=== PATIENT | female | born 1995 | race Two or more races ===

== ENCOUNTER → 2017-07-03 16:43 | Outpatient (CLI) | payer OTHER, SELFPAY ==
[2017-07-03 17:25] LABS: Absolute Lymphocyte Count 2.41 X10^3/ul (0.83-4.51); Absolute Neutrophil Count 9.9 X10^3/uL (2.0-7.7); Basophil# 0.02 X10^3/uL; Basophil% 0.2 % (0-1); Eosinophil# 0.12 X10^3/uL; Eosinophils% 0.9 % (0-5); Hematocrit 40.9 % (37-47); Hemoglobin 13.4 g/dl (12.0-15.0); Lymphocyte # 2.41 X10^3/ul (4.0); Lymphocyte % 18.3 % (19-41); Mean Corp Hgb Conc 32.8 g/gl (32-36); Mean Corpuscular Hgb 28.3 pg (27.0-32.0); Mean Corpuscular Volume 86.5 fL (81-99); Mean Platelet Vol. 8.7 fl (6.2-12.0); Monocyte# 0.67 X10^3/uL; Monocyte% 5.1 % (0-10); Neutrophil # 9.94 X10^3/uL (2.7-7.7); Neutrophil % 75.3 % (47-70); Platelet Count 275 K/mm3 (150-450); RBC Distribution Width CV 12.3 % (11.6-14.6); RBC Distribution Width SD 38.8 fl (35.1-43.9); Red Blood Count 4.73 M/mm3 (4.2-5.4); White Blood Count 13.2 K/mm3 (4.4-11.0)
[2017-07-03 17:29] LABS: POSITIVE COUNT NO; POSITIVE DIFFERENTIAL NO; POSITIVE MORPHOLOGY NO
[2017-07-03 22:33] LABS: Chlamydia Trachomatis by PCR Negative (Negative); Neisserai gonorrhoeae by PCR Negative (Negative); Probe Check PASS; Sample Adequacy Control PASS; Specimen Processing Control PASS
[2017-07-04 07:09] LABS: Rapid Plasmin Reagin (RPR) NONREACTIVE (NONREACTIVE)
[2017-07-04 11:18] LABS: HIV - WCH Non-Reactive (Nonreactive)
[2017-07-06 03:06] LABS: HCV Quant. RNA PCR HCV Not Detected IU/mL (.)
[2017-07-06 08:53] LABS: HEPATITIS B SURFACE AG Negative (Negative)
[2017-07-08 15:52] LABS: HPV Reflexed? NOT INDICATED
== END ==
PROVIDERS: Visit Provider Obstetrics & Gynecology
DX: Z34.90 Encounter for supervision of normal pregnancy, unspecified, unspecified trimester (principal); Z12.4 Encounter for screening for malignant neoplasm of cervix
CPT/HCPCS: 36415; 85025; 86592; 86703; 86762; 86850; 86900; 87086; 87088; 87340; 87491; 87522; 87591; 88175; G0145

== ENCOUNTER → 2017-08-29 12:52 | Outpatient (CLI) | payer OTHER, SELFPAY ==
--- NOTE | 2017-08-29 12:53 | US_ITS ---
STUDY: SECOND AND THIRD TRIMESTER OBSTETRICAL ULTRASOUND REASON FOR EXAM: Female, 22 years old. Routine survey. LMP: Unsure. TECHNIQUE: Transabdominal PRIOR ULTRASOUND: None. FINDINGS: There is a single intrauterine fetus. The fetus is in a cephalic presentation. There is demonstrated cardiac activity with a heart rate of 140 bpm. There is a normal amniotic fluid volume. The largest amniotic fluid pocket measures 8.6 x 7.4 cm. The placenta is posterior in location and is not low lying. There are Grade 0 placental changes. The cervix measures 3.3 cm in length. The adnexal regions are not visualized. BIOMETRY: BPD: 4.34 cm: 19 weeks, 1 days HC: 15.88 cm: 18 weeks, 6 days AC: 13.67 cm: 19 weeks, 1 days FL: 3.0 cm: 19 weeks, 2 days CI: 79% FL/BPD: 69% FL/HC: FL/AC: 22% HC/AC: 1.16 age by current US: 19 weeks, 1 days. VIVIEN by current US: January 22, 2018. Estimated weight: 276 grams, +/- 40 grams, 7 %. Age by LMP: 20 weeks, 1 days. VIVIEN by LMP: January 15, 2018. ANATOMY: Gender: Male Cranium: Normal lateral ventricles. Normal choroid plexus. Normal cerebellum. Normal cisterna magna. Normal face, nose and lips. Chest: Normal 4-chamber heart. Abdomen/Pelvis: Normal diaphragm. Normal stomach. Normal abdominal wall. Normal cord insertion. Normal 3 vessel cord. Normal kidneys. Normal bladder. Spine: Normal cervical spine. Normal thoracic spine. Normal lumbar spine. Normal sacrum. Extremities: Normal bilateral upper extremities. Normal bilateral lower extremities. US/OB Anatomy Scan IMPRESSION: Single live intrauterine gestation with a mean gestational age of 19 weeks and 1 day. Electronically Signed: Nathaniel Lai MD at 14:13 EDT Tel [phone], Service support ,
== END ==
PROVIDERS: Visit Provider Obstetrics & Gynecology
DX: O09.90 Supervision of high risk pregnancy, unspecified, unspecified trimester (principal); Z3A.00 Weeks of gestation of pregnancy not specified
CPT/HCPCS: 76805

== ENCOUNTER → 2017-09-24 14:41 | Outpatient (CLI) | payer OTHER, SELFPAY ==
--- NOTE | 2017-09-24 14:43 | VDLE_ITS ---
Reason For Study: LLE pain RIGHT LEFT CFV is compressible, spontaneous, phasic, GSV is normal. competent and demonstrates normal CFV is compressible, spontaneous, phasic, augmentation. competent, and demonstrates normal Procedure augmentation. Exam performed in department. FV is compressible, spontaneous, phasic, The exam was diagnostic. competent and demonstrates normal A preliminary report was called and/or faxed augmentation. to Maryellen Castle INTERPRETATIVE DANCER @ 3 pm . POP V is compressible, spontaneous, phasic, Image # 10 is the Left POP V not Left PTV competent and demonstrates normal (mislabeled). augmentation. T/P Trunk is compressible. PTV is compressible. LT PerV is compressible. Interpretation Summary Deep veins of the left lower extremity are patent and compressible segmentally. There is no evidence of left lower extremity deep vein thrombosis. Valvular competence appears intact within the proximal deep venous system on the left . The left greater saphenous vein appears patent and compressible segmentally. Ordering Physician: Maryellen Castle Referring Physician: Maryellen Castle Performed By: Lisa Gutierrez, FRANCISCA, RVT
== END ==
PROVIDERS: Visit Provider Nurse Practitioner Women's Health
DX: O99.119 Other diseases of the blood and blood-forming organs and certain disorders involving the immune mechanism complicating pregnancy, unspecified trimester (principal); D68.51 Activated protein C resistance; Z3A.00 Weeks of gestation of pregnancy not specified
CPT/HCPCS: 93971

== ENCOUNTER → 2017-10-09 11:18 | Outpatient (CLI) | payer OTHER, SELFPAY ==
--- NOTE | 2017-10-09 11:19 | US_ITS ---
STUDY: SECOND AND THIRD TRIMESTER OBSTETRICAL ULTRASOUND - LIMITED REASON FOR EXAM: Female, 22 years old. Routine survey. LMP: April 10, 2017. PRIOR ULTRASOUND: Comparison is made with prior study dated August 29, 2017. TECHNIQUE: Transabdominal ultrasound evaluation was performed. FINDINGS: There is a single intrauterine fetus. The fetus is in a breech presentation. There is demonstrated cardiac activity with a heart rate of 143 bpm. There is a normal amniotic fluid volume. The largest amniotic fluid pocket measures 4.3 cm x 6.2 cm. The amniotic fluid index (RAYMON) is 14.4 cm. The placenta is posterior in location and is not low lying. There are Grade 1 placental changes. The cervix measures 3.3 cm in length. BIOMETRY: BPD: 6.1 cm: 24 weeks, 5 days HC: 22.5 cm: 24 weeks, 4 days AC: 20.6 cm: 25 weeks, 2 days FL: 4.6 on the: 25 weeks, 2 days Age by LMP: 26 weeks, 0 days. VIVIEN by LMP: January 15, 2018. age by prior US: 25 weeks, 0 days. VIVIEN by prior US: January 22, 2018. age by current US: 25 weeks, 0 days. VIVIEN by current US: January 22, 2018. Estimated weight: 772 grams, +/- 113 grams, 11 percentile. Gender: Male US/OB Limited With Biometrics IMPRESSION: Single live intrauterine gestation with a mean gestational age of 25 weeks. The measurements obtained today fall within normal expected range. Electronically Signed: Nathaniel Lai MD at 14:49 EDT Tel [phone], Service support ,
== END ==
PROVIDERS: Visit Provider Obstetrics & Gynecology
DX: O99.119 Other diseases of the blood and blood-forming organs and certain disorders involving the immune mechanism complicating pregnancy, unspecified trimester (principal); D68.51 Activated protein C resistance; Z3A.00 Weeks of gestation of pregnancy not specified
CPT/HCPCS: 76816

== ENCOUNTER 2017-10-17 07:25 | Outpatient (CLI) | payer OTHER, SELFPAY ==
--- NOTE | 2017-10-17 07:25 | DT_ITS ---
This patient was seen during an EMR downtime October 13, 2017 - October 20, 2017. This patient may have a combination of paper and electronic documentation or all paper documentation. All documentation is viewable within the e-chart portion of [facility] [facility] for each patient visit.
== END 2017-10-17 08:10 | disposition home or self-care (01) ==
LOC: WPOUT 07:31 → WP 07:32
PROVIDERS: Visit Provider Obstetrics & Gynecology
DX: O36.8190 Decreased fetal movements, unspecified trimester, not applicable or unspecified (principal)
CPT/HCPCS: 59025; 59050; 99218; G0378

== ENCOUNTER → 2017-10-23 14:46 | Outpatient (CLI) | payer OTHER, SELFPAY ==
[2017-10-23 17:31] LABS: Absolute Lymphocyte Count 2.11 X10^3/ul (0.83-4.51); Absolute Neutrophil Count 11.1 X10^3/uL (2.0-7.7); Basophil# 0.03 X10^3/uL; Basophil% 0.2 % (0-1); Eosinophil# 0.12 X10^3/uL; Eosinophils% 0.8 % (0-5); Hematocrit 37.9 % (37-47); Hemoglobin 12.5 g/dl (12.0-15.0); Lymphocyte # 2.11 X10^3/ul (4.0); Lymphocyte % 14.9 % (19-41); Mean Corpuscular Hgb 28.9 pg (27.0-32.0); Mean Corpuscular Volume 87.7 fL (81-99); Monocyte# 0.77 X10^3/uL; Monocyte% 5.4 % (0-10); Neutrophil # 11.05 X10^3/uL (2.7-7.7); Neutrophil % 78.2 % (47-70); Platelet Count 283 K/mm3 (150-450); RBC Distribution Width CV 12.7 % (11.6-14.6); RBC Distribution Width SD 39.7 fl (35.1-43.9); Red Blood Count 4.32 M/mm3 (4.2-5.4); White Blood Count 14.2 K/mm3 (4.4-11.0)
[2017-10-23 17:32] LABS: Glucose Challenge Gest 1H 50g 121 mg/dL (70-140)
[2017-10-23 17:57] LABS: POSITIVE COUNT NO; POSITIVE DIFFERENTIAL NO; POSITIVE MORPHOLOGY NO
== END ==
PROVIDERS: Visit Provider Nurse Practitioner Women's Health
DX: O09.899 Supervision of other high risk pregnancies, unspecified trimester (principal); Z3A.28 28 weeks gestation of pregnancy; Z67.91 Unspecified blood type, Rh negative
CPT/HCPCS: 82950; 85025; 86850; 86900

== ENCOUNTER 2017-10-28 19:13 | Outpatient (CLI) | payer OTHER, SELFPAY ==
[2017-10-28 19:57] VITALS: BMI 40.8
[2017-10-28] MEDS: Acetaminophen 500 MG Tablet 1000 MG PO (21:08)
[2017-10-28 21:10] VITALS: RESP 18
--- NOTE | 2017-10-29 23:07 | OB.TRI.NOTE ---
- Problem List (1) Threatened labor Status: Acute History of Present Illness Date of Service: 10/29/17 Reason For Visit: CRAMPING Date of Service: 10/29/17 History of Present Illness: co ctx and abdominal cramping Allergies No Known Allergies Allergy (Verified 10/28/17 19:58) - Pertinent Past Medical History Medical History: Past Medical History (Last Reviewed 10/23/17 @ 13:40 by Yasmine Mcclellan) Anxiety and depression Factor 5 Leiden mutation, heterozygous Physical Exam Vitals: Vital Signs Resp 18 10/28/17 21:10 NST - FHR Rate Baby A Baseline: 130s moderate variability reactive Variability:: Moderate Accelerations:: 15 x 15 Decelerations:: Variable - isolated 20 sec variable gestational age appropriate FHR Category:: Category I Uterine Activity:: no regular Impression/Plan threatened PTL cervix closed dc home labor precautions reactive nst
== END 2017-10-28 21:10 | disposition home or self-care (01) ==
LOC: WPOUT 19:21 → WP 19:21
PROVIDERS: Visit Provider Obstetrics & Gynecology
DX: O60.00 Preterm labor without delivery, unspecified trimester (principal); O99.340 Other mental disorders complicating pregnancy, unspecified trimester; F41.9 Anxiety disorder, unspecified; F32.9 Major depressive disorder, single episode, unspecified; O99.119 Other diseases of the blood and blood-forming organs and certain disorders involving the immune mechanism complicating pregnancy, unspecified trimester; D68.51 Activated protein C resistance; Z3A.00 Weeks of gestation of pregnancy not specified
CPT/HCPCS: 59025; 59050; 99218; G0378

== ENCOUNTER → 2017-11-06 17:03 | Outpatient (CLI) | payer OTHER, SELFPAY ==
[2017-11-06 17:24] LABS: Protein, Urine (Random) 59.3 mg/dL (<11.9); Protein:Creat Ratio 272 mg/g CRE (0-200)
== END ==
PROVIDERS: Visit Provider Nurse Practitioner Women's Health
DX: O12.10 Gestational proteinuria, unspecified trimester (principal); Z3A.00 Weeks of gestation of pregnancy not specified
CPT/HCPCS: 82570; 84156

== ENCOUNTER → 2017-11-20 18:03 | Outpatient (CLI) | payer OTHER, SELFPAY | PROVIDERS: Visit Provider Obstetrics & Gynecology | DX: O26.899 Other specified pregnancy related conditions, unspecified trimester (principal); R10.2 Pelvic and perineal pain; Z3A.00 Weeks of gestation of pregnancy not specified | CPT/HCPCS: 87086; 87088 ==

== ENCOUNTER → 2017-11-21 12:13 | Outpatient (CLI) | payer OTHER, SELFPAY ==
--- NOTE | 2017-11-21 12:15 | US_ITS ---
STUDY: SECOND AND THIRD TRIMESTER OBSTETRICAL ULTRASOUND - LIMITED REASON FOR EXAM: Female, 22 years old. Routine survey. LMP: April 10, 2017. PRIOR ULTRASOUND: Comparison is made with prior study dated August 29, 2017 and October 09, 2017. TECHNIQUE: Transabdominal ultrasound evaluation was performed. FINDINGS: There is a single intrauterine fetus. The fetus is in a cephalic presentation. There is demonstrated cardiac activity with a heart rate of 158 bpm. There is a normal amniotic fluid volume. The largest amniotic fluid pocket measures 4.3 cm. The amniotic fluid index (RAYMON) is 14.05 cm. The placenta is posterior in location and is not low lying. There are Grade 1 placental changes. The cervix was not able to be evaluated. The bladder was not filled. BIOMETRY: BPD: 7.71 cm: 31 weeks, 0 days HC: 28.69 cm: 31 weeks, 4 days AC: 26.27 cm: 30 weeks, 3 days FL: 6.01 cm: 31 weeks, 2 days Age by LMP: 32 weeks, 1 days. VIVIEN by LMP: January 15, 2018.. age by prior US: 31 weeks, 1 days. VIVIEN by prior US: January 22, 2018. age by current US: 31 weeks, 1 days. VIVIEN by current US: January 22, 2018. Estimated weight: 1648 grams, +/- 241 grams, 9 percentile. Gender: Male US/OB Limited With Biometrics IMPRESSION: Single live intrauterine gestation with a mean gestational age of 31 weeks and 1 day. The measurements obtained today fall within the normal expected range. Electronically Signed: Nathaniel Lai MD at 14:46 EDT Tel [phone], Service support ,
== END ==
PROVIDERS: Visit Provider Obstetrics & Gynecology
DX: O09.90 Supervision of high risk pregnancy, unspecified, unspecified trimester (principal); Z68.41 Body mass index [BMI] 40.0-44.9, adult; O09.899 Supervision of other high risk pregnancies, unspecified trimester; Z67.91 Unspecified blood type, Rh negative; O99.119 Other diseases of the blood and blood-forming organs and certain disorders involving the immune mechanism complicating pregnancy, unspecified trimester; D68.51 Activated protein C resistance; Z3A.00 Weeks of gestation of pregnancy not specified
CPT/HCPCS: 76816

== ENCOUNTER 2017-11-27 18:10 | Outpatient (CLI) | payer OTHER, SELFPAY ==
[2017-11-27 18:54] VITALS: BMI 40.4
[2017-11-27 19:53] VITALS: BP 103/62; PULSE 82; RESP 16; O2SAT 98
--- NOTE | 2017-12-02 00:03 | OB.TRI.NOTE ---
- Problem List (1) Threatened labor Status: Acute History of Present Illness Date of Service: 12/02/17 Was patient seen by the physician?: No Reason For Visit: R/O PRE TERM LABOR Date of Service: 12/02/17 History of Present Illness: contractions Allergies No Known Allergies Allergy (Verified 11/27/17 19:47) - Pertinent Past Medical History Medical History: Past Medical History (Last Reviewed 11/26/17 @ 11:30 by Leatha Arreguin) Anxiety and depression Factor 5 Leiden mutation, heterozygous Physical Exam Vitals: Vital Signs Pulse Resp BP Pulse Ox 82 16 103/62 98 11/27/17 19:53 11/27/17 19:53 11/27/17 19:53 11/27/17 19:53 NST - FHR Rate Baby A Baseline: 140 Variability:: Moderate Accelerations:: 15 x 15 Decelerations:: None NST Reactive:: Yes FHR Category:: Category I Uterine Activity:: irregular Impression/Plan threatened PTL cervix not dilated no regular ctx reactive nst dc home
== END 2017-11-27 19:50 | disposition home or self-care (01) ==
LOC: WP 18:45 → WPOUT 18:46
PROVIDERS: Visit Provider Obstetrics & Gynecology
DX: O60.00 Preterm labor without delivery, unspecified trimester (principal); O99.119 Other diseases of the blood and blood-forming organs and certain disorders involving the immune mechanism complicating pregnancy, unspecified trimester; D68.51 Activated protein C resistance; Z3A.00 Weeks of gestation of pregnancy not specified
CPT/HCPCS: 59050; 99218; G0378

== ENCOUNTER → 2017-12-18 17:45 | Outpatient (CLI) | payer OTHER, SELFPAY ==
[2017-12-18 19:43] LABS: Group B Strep DNA By PCR Negative (Negative)
[2017-12-18 19:44] LABS: Internal Control PASS; Probe Check PASS; Specimen Processing Control PASS
== END ==
PROVIDERS: Visit Provider Obstetrics & Gynecology
DX: O09.90 Supervision of high risk pregnancy, unspecified, unspecified trimester (principal); Z3A.00 Weeks of gestation of pregnancy not specified
CPT/HCPCS: 87081; 87653

== ENCOUNTER 2017-12-20 10:15 | Outpatient (CLI) | payer OTHER, SELFPAY ==
[2017-12-20 10:36] VITALS: BMI 41.5
[2017-12-20 11:10] LABS: Mucous, Urine 0 SEEN /hpf (<or=2+); Red Blood Cells-Urine 0 SEEN /hpf (0-5)
[2017-12-20 11:15] LABS: Color, Urine Yellow (Yellow); Glucose, Dipstick Normal (Normal); Ketone-Dipstick Negative (Negative); Leukocyte Esterase-Dipstick 500 /ul (Negative); Nitrite-Dipstick Negative (Negative); Occult Blood-Urine 10 /ul (Negative); Protein-Dipstick 15 mg/dl (Negative); Specific Gravity, Urine 1.015 (1.002-1.030); Urine Bilirubin Dipstick Negative (Negative); Urine Clarity Cloudy (Clear); Urine Urobilinogen Normal (Normal)
[2017-12-20 11:24] LABS: Amorphous Sediment 1+; Bacteria 1+ /hpf (None Seen); Squamous Epithelial Cells - UA 0-5 SEEN /hpf (5-10); White Blood Cells 5-10 SEEN /hpf (0-5)
[2017-12-20] MEDS: Nitrofurantoin Macrocrystals 100 MG Capsule PO (11:47)
--- NOTE | 2017-12-21 00:50 | OB.TRI.NOTE ---
- Problem List (1) Threatened labor Status: Acute History of Present Illness Date of Service: 12/20/17 Was patient seen by the physician?: No Reason For Visit: R/O LABOR Date of Service: 12/20/17 History of Present Illness: co irergular ctx Allergies No Known Allergies Allergy (Verified 12/18/17 13:23) - Pertinent Past Medical History Medical History: Past Medical History (Last Reviewed 12/18/17 @ 13:23 by Carlota Feng) Anxiety and depression Factor 5 Leiden mutation, heterozygous NST - FHR Rate Baby A Baseline: 140 Variability:: Moderate Accelerations:: 15 x 15 Decelerations:: None NST Reactive:: Yes, Appropriate for gestational age FHR Category:: Category I Uterine Activity:: irregular Impression/Plan reactive nst jerry rosario dc [place]
== END 2017-12-20 11:50 | disposition home or self-care (01) ==
LOC: WPOUT 10:27 → WP 10:27
PROVIDERS: Visit Provider Obstetrics & Gynecology
DX: O60.00 Preterm labor without delivery, unspecified trimester (principal); Z3A.00 Weeks of gestation of pregnancy not specified
CPT/HCPCS: 59025; 59050; 81001; 99218; G0378

== ENCOUNTER 2018-01-09 22:15 | Outpatient (CLI) | payer OTHER, SELFPAY ==
[2018-01-09 22:51] VITALS: BMI 43.1
[2018-01-09 23:20] LABS: ROM Internal Control Test YES-OK TO RESULT pt. (Internal QC); ROM Patient Test Negative (Negative)
--- NOTE | 2018-01-09 23:55 | OB.TRI.NOTE ---
- Problem List (1) 39 weeks gestation of Status: Acute (2) False labor after 37 completed weeks of gestation Status: Acute History of Present Illness Reason For Visit: R/O SROM Date of Service: 01/09/18 Final VIVIEN: 01/15/18 Final VIVIEN Source: US <20 weeks Gestational age: 39 Weeks and 1 Days History of Present Illness: 22yo G1 @ 39 1/7wga with c/o contractions Allergies No Known Allergies Allergy (Verified 01/09/18 22:59) - Pertinent Past Medical History Medical History: Past Medical History (Last Reviewed 01/07/18 @ 08:27 by Carlota Feng) Anxiety and depression Factor 5 Leiden mutation, heterozygous Physical Exam Vitals: Vital Signs Resp 18 01/10/18 00:28 Cervix Dilation (cm): 1 Station: -3 Effacement (%): 50 - per MARY Oneal NST - FHR Rate Baby A Baseline: 135 Variability:: Moderate Accelerations:: None Decelerations:: None NST Reactive:: Yes FHR Category:: Category I Uterine Activity:: 0/10 Impression/Plan 22yo G1 @ 39.1 wga with false labor, Cat I FHR -d/c home
[2018-01-10 00:28] VITALS: RESP 18
== END 2018-01-10 00:28 | disposition home or self-care (01) ==
LOC: WPOUT 22:50 → WP 01-13 09:50
PROVIDERS: Visit Provider Obstetrics & Gynecology
DX: O47.1 False labor at or after 37 completed weeks of gestation (principal); Z3A.39 39 weeks gestation of pregnancy
CPT/HCPCS: 59025; 59050; 84112; 99218; G0378

== ENCOUNTER → 2018-01-13 11:10 | Outpatient (CLI) | payer OTHER, SELFPAY ==
[2018-01-13 11:29] LABS: Protein, Urine (Random) 60.4 mg/dL (<11.9); Protein:Creat Ratio 266 mg/g CRE (0-200)
== END ==
PROVIDERS: Visit Provider Nurse Practitioner Women's Health
DX: R80.9 Proteinuria, unspecified (principal)
CPT/HCPCS: 82570; 84156

== ENCOUNTER 2018-01-19 09:55 | Inpatient (IN) | payer OTHER, SELFPAY ==
[2018-01-19 10:22] VITALS: BMI 43.8
[2018-01-19] MEDS: Lactated Ringers 1,000 ML 50 ML IV ×3 (10:45→14:39)
[2018-01-19 11:07] LABS: Hematocrit 37.6 % (37-47); Hemoglobin 12.1 g/dl (12.0-15.0); Mean Corp Hgb Conc 32.2 g/gl (32-36); Mean Corpuscular Hgb 25.9 pg (27.0-32.0); Mean Corpuscular Volume 80.3 fL (81-99); Mean Platelet Vol. 9.1 fl (6.2-12.0); Platelet Count 236 K/mm3 (150-450); RBC Distribution Width CV 13.3 % (11.6-14.6); Red Blood Count 4.68 M/mm3 (4.2-5.4); White Blood Count 12.3 K/mm3 (4.4-11.0)
[2018-01-19 11:08] LABS: Scan Indicated on CBC? Y/N NO
[2018-01-19 11:12] LABS: Prothrombin Time (Protime)PT. 12.8 SECONDS (11.7-14.9)
[2018-01-19 11:13] LABS: Partial Thromboplast Time 24.3 Seconds (24.1-36.2)
[2018-01-19] MEDS: Oxytocin 30 units/NS 500 ml 30 UNITS/500 ML IV.SOLN IV (11:34)
[2018-01-19 11:44] LABS: Protein, Urine (Random) 135.2 mg/dL (<11.9); Protein:Creat Ratio 457 mg/g CRE (0-200)
[2018-01-19 11:50] LABS: AST(SGOT) 19 U/L (15-37); Alanine Aminotransfer ALT/SGPT 13 U/L (13-56); Creatinine, Serum 0.74 mg/dL (0.55-1.02); EST Glomerular Filtration Rate 102 mL/min (>60); Est Glom Filt Rate - Afr Amer 123 mL/min (>60); Estimated Creatinine Clearance 88.46 ml/min; Uric Acid 5.4 mg/dL (2.6-6.0)
--- NOTE | 2018-01-19 12:11 | PCM.HP.OB ---
- Problem List (1) Preeclampsia Status: Acute (2) Status: Acute Qualifiers: Comment: (3) screening encounter Status: Acute Comment: MFM consult for NT screening (4) Factor V Leiden mutation affecting Status: Acute Comment: heterozygous, mom had DVT in , no antiocoagulation recommended in unless prolonged immobilization or c section. (5) Rh negative status during Status: Acute Qualifiers: Comment: rhogam at 28 weeks and PRN (6) BMI 40.0-44.9, adult Status: Acute Comment: 1st trimester glucola, recommend weekly nsts and growth US 32 weeks until delivery (7) Supervision of high-risk Status: Acute Qualifiers: Comment: PRR VIVIEN 01/24/18 FOB Binh (involved) History Date of Admission: 01/19/18 Final VIVIEN: 01/15/18 Final VIVIEN Source: US <20 weeks Gestational age: 40 Weeks and 4 Days History of this : This is a 22 year-old, , at 40 weeks gestational age presents for IOL secondary to preeclampsia. BP is 130s over 90s today and her protein is elevated at 457mg on a urine protein creatinine ratio. she denies any hdz bv or ruq but has hade some ctx and cramping. she denies any vb or lof. Medical History: Medical History (Last Reviewed 01/19/18 @ 09:20 by Yasmine Mccelllan) Anxiety and depression F41.8 Factor 5 Leiden mutation, heterozygous D68.51 Allergies No Known Allergies Allergy (Verified 01/19/18 10:22) Home Medications: Home Medications vitamin,calcium,dsqfhsek-[id number]-gkxfp acid tablet 1 tab PO QDAY 07/03/17 breast pump See Dose Instructions .ROUTE .MEDSUPPLY #1 ea 12/30/17 Citalopram Hydrobromide [Citalopram HBr] 20 mg PO QDAY 01/19/18 Smoking Status: Never smoker Alcohol: None Number of Fetus(es): 1 Heart Tracin moderate variability reactive no decels cat I tracing TOCO Analysis: irregular History Past Pregnancies: Past Pregnancies Delivery Date Name GA/Weeks Outcome Route Weight Infant Gender Labor Length Anesthesia Delivery Location Provider FOB Labs: Mom's Labs & Results 01/19/18 01/19/18 01/19/18 10:45 10:45 10:45 WBC 12.3 H RBC 4.68 Hgb 12.1 Hct 37.6 MCV 80.3 L MCH 25.9 L MCHC 32.2 RDW 13.3 RDW Differential 38.0 Plt Count 236 MPV 9.1 PT 12.8 INR 1.0 APTT 24.3 Creatinine Estim Creat Clear Calc Est GFR (MDRD) Af Amer Est GFR (MDRD) Non-Af Uric Acid AST ALT U Random Total Protein Urine Creatinine Protein/Creatinin Ratio Blood Type Pending Antibody Screen Pending 01/19/18 01/19/18 10:45 11:06 WBC RBC Hgb Hct MCV MCH MCHC RDW RDW Differential Plt Count MPV PT INR APTT Creatinine 0.74 Estim Creat Clear Calc 88.46 Est GFR (MDRD) Af Amer 123 Est GFR (MDRD) Non-Af 102 Uric Acid 5.4 AST 19 ALT 13 U Random Total Protein 135.2 H Urine Creatinine 296.00 Protein/Creatinin Ratio 457 H Blood Type Antibody Screen Course Did the patient receive Yes care? Labs RH: NEGATIVE RPR/VDRL/Syphilis Nonreactive Rubella status Immune HbSAg Negative Date Done: 07/03/17 Chlamydia Negative Gonorrhea Negative HIV/AIDS Non-Reactive Group B Strep: Negative Current Obstetrical History Gestational Diabetes No Incompetent Cervix No Infertility No IUGR No Macrosomia No Hypertension/Pre-eclampsia Yes Placenta Previa/Abruption No PTL/PROM No Uterine anomaly No Oligohydramnios No Polyhydramnios No Multiple gestation No Past Medical History Asthma No Diabetes No Hypertension No Heart disease No Mitral valve prolapse No Neurologic/Seizure disorder/ No Migraines Kidney disease No Liver disease No Varicosities No Clotting disorders/Hx of DVT Yes: FACTOR V Thyroid Dysfunction No Other medical diseases No Psychiatric disorders Yes: ANXIETY AND DEPRESSION Major trauma No Abnormal PAP smear No Sleep apnea No Mammogram in the last 2 years No Medications Taken During Dose/Freq.: [MACROBID] 100 MG BID Reason for taking medication [ UTI MACROBID] Social History Marital Status: SINGLE Alleged father BINH SUSAN Hx Smoking No Smoking Status Never smoker How long have you used NA substances (years)? Expected Delivery Method: Spontaneous Vaginal Review of Systems Constitutional: Denies: Fever, Malaise Eyes: Denies: Blurred vision, Vision Change HEENT: Denies: Head Aches, Visual Changes Cardiovascular: Denies: Chest Pain, Palpitations Respiratory: Denies: Cough, Shortness of Breath, Wheezing Gastrointestinal: Denies: Abdominal Pain, Diarrhea, Nausea, Vomiting Genitourinary: Denies: Dysuria, Hematuria Musculoskeletal: Denies: Joint Pain, Muscle pain Skin: Denies: Lesions, Rash Neurological: Denies: Blurred vision, Focal weakness, Headaches Psychiatric: Denies: Anxiety, Depression Endocrine: Denies: Heat/ Cold Intolerance Hematologic/ Lymphatic: Denies: Easy Bruising, Easy Bleeding Physical Exam General: Alert, Cooperative, No apparent distress HEENT: Atraumatic, Normocephalic. Negative for: Thyromegaly, Lymphadenopathy Cardiovascular: Regular rate Lungs: Normal air movement Abdomen: Soft, Non Tender, Gravid Neurological: Deep Tendon Reflexes 2+/4 and Symmetrical, Neuro grossly intact. Negative for: Clonus CURING PRESS MAINTAINER: Normal external genitalia. Negative for: Vulvar lesions Estimated gestational size: Appropriate for gestational size Presentation: Cephalic Assessment/Plan All Active Problems (Last Reviewed 01/19/18 @ 09:20 by Yasmine Mcclellan) 39 weeks gestation of (Acute) False labor after 37 completed weeks of gestation (Acute) Preeclampsia (Acute) (Acute) screening encounter (Acute) Factor V Leiden mutation affecting (Acute) Rh negative status during (Acute) BMI 40.0-44.9, adult (Acute) Supervision of high-risk (Acute) growth abnormality (Resolved) Threatened labor (Resolved) This is a 22 year-old, at 40 weeks gestational age. Patient presents IOL, plan pitocin and arom. Pain management: plans epidural. GBS negative Management of any complications: preeclampsia- labs checked, start magensium only if developed severely elevated bps. I have reviewed the [facility] and made any clinically relevant updates.
[2018-01-19] MEDS: Acetaminophen 325 MG Tablet PO ×2 (13:15→13:19)
[2018-01-19] MEDS: fentaNYL-bupivacaine (epidural) 100 ML BAG EPIDURAL (14:52)
[2018-01-19] MEDS: Amnioinfusion- 0.9% NS 1,000 ML IV.SOLN. 1000 ML INTRA-UTER (16:17)
[2018-01-19] MEDS: Oxytocin 30 units/NS 500 ml 30 UNITS/500 ML IV.SOLN 334 UNITS IV (16:45)
[2018-01-19] MEDS: Oxytocin 30 units/NS 500 ml 30 UNITS/500 ML IV.SOLN 167 UNITS IV (17:15)
[2018-01-19] MEDS: Ketorolac 10 MG Tablet PO (18:43)
[2018-01-19 19:52] VITALS: BP 125/78; PULSE 121; RESP 17; TEMP 37.2
[2018-01-19] MEDS: hydrOXYzine PAM 25 MG Capsule PO (21:00)
[2018-01-19] MEDS: Docusate Sodium 100 MG Capsule PO (22:22)
[2018-01-20] VITALS: BP 119/78; PULSE 100; RESP 17; TEMP 36.6
[2018-01-20] MEDS: Ketorolac 10 MG Tablet PO ×3 (00:17→12:12)
[2018-01-20] MEDS: oxyCODONE 5 MG Tablet PO ×5 (00:17→21:17)
[2018-01-20 04:00] VITALS: BP 112/63; PULSE 68; RESP 17
[2018-01-20] MEDS: Enoxaparin 40 MG/0.4 ML Syringe SC (05:44)
[2018-01-20] MEDS: Dibucaine 30 GM Tube 1 APPLIC TOPICAL (05:45)
[2018-01-20 08:05] VITALS: BP 102/63; PULSE 101; RESP 16; TEMP 36.8; O2SAT 96
[2018-01-20] MEDS: Prenatal Vits Tablet 1 TABLET PO (10:03)
[2018-01-20] MEDS: Docusate Sodium 100 MG Capsule PO ×2 (10:04→21:16)
[2018-01-20] MEDS: Citalopram 20 MG Tablet PO (10:04)
[2018-01-20 12:07] VITALS: BP 111/62; PULSE 102; RESP 16; TEMP 37.2; O2SAT 96
[2018-01-20 14:00] VITALS: BP 125/81; PULSE 71; RESP 16; TEMP 36.8; O2SAT 96
--- NOTE | 2018-01-20 15:40 | NURSING ---
Pt bladder scanned for >887, I straight cathed the pt for 1300cc of light yellow urine. updated and made aware via her nurse Magda.
[2018-01-20] MEDS: hydrOXYzine PAM 25 MG Capsule PO (15:48)
--- NOTE | 2018-01-20 16:14 | CASEMGMT ---
Social Work Labor and Delivery Unit Consult received and noted for maternal history of depression and anxiety. Chart reviewed, noted also mother of baby is a first time mother. Per RN, MOB has had visitors all day today. Met with MOB briefly in room, introduced to self and role. Offered to MOB to do consult now or can come back tomorrow. MOB expressed that is feeling tired, that has had many visitors today, with more visitors to come yet this evening. MOB reports as feeling tired is worried may not retain what social worker school talks about, though would try. Agreed to come back tomorrow morning. MOB smiling, bright affect, appearing to have baby at breast and working on breast feeding. Plan: See MOB tomorrow, 01-21-18. -FROYLAN Godinez, RAT POISONER
--- NOTE | 2018-01-20 17:53 | NURSING ---
pt voided 500cc at this time
[2018-01-20] MEDS: Naproxen 250 MG Tablet 500 MG PO (18:59)
[2018-01-20 19:34] VITALS: BP 136/80; PULSE 94; RESP 18; TEMP 36.8; O2SAT 97
[2018-01-20] MEDS: 0.9% Saline Lock 10 ML Syringe IV ×2 (21:18→23:12)
[2018-01-21 03:02] VITALS: BP 137/78; PULSE 104; RESP 18; TEMP 37.1
[2018-01-21] MEDS: oxyCODONE 5 MG Tablet PO ×3 (03:06→13:12)
[2018-01-21] MEDS: Naproxen 250 MG Tablet 500 MG PO (03:07)
[2018-01-21] MEDS: Enoxaparin 40 MG/0.4 ML Syringe SC (06:06)
--- NOTE | 2018-01-21 06:11 | NURSING ---
pt educated on lovenox administration. pt gave own and did well
[2018-01-21] MEDS: hydrOXYzine PAM 25 MG Capsule PO ×2 (06:16→13:12)
[2018-01-21 08:21] VITALS: BP 119/66; PULSE 94; RESP 22; TEMP 36.6; O2SAT 98
[2018-01-21] MEDS: Prenatal Vits Tablet 1 TABLET PO (10:56)
[2018-01-21] MEDS: Citalopram 20 MG Tablet PO (10:56)
[2018-01-21] MEDS: Docusate Sodium 100 MG Capsule PO (10:56)
--- NOTE | 2018-01-21 12:47 | CASEMGMT ---
Social Work Brief Assessment completed. Refer documentation below for further details. Date of Referral/Notification: 01/20/2018 Time of Referral: 714 Referred By: Dr. Toribio Reason for Referral: maternal history of depression and anxiety Date of Intervention: 01/21/2018 Time of Intervention: 1030 Informant: Medical record and mother of baby (MOB) History: JASMYNE is 22-year-old single female, G1, P0 to 1 after delivering Demetri Luzimple on 01-19-18. care started at 10 weeks gestation. MOB with history of Factor V disorder. MOB induced for preeclampsia issues Baby boy Demetri was born weighing 7 pounds 3 ounces, Apgars 8 and 9 at 1 and 5 minutes of life. MOB reports plan for pediatric follow up with Dr. Berrios in [place], [place]. MOB reports father of baby (FOB) is a Darshan Claudy, though uncertain what level of involvement reported FOB will have. JASMYNE reports has known FOB since childhood and were good friends for years. MOB reports this has changed things, and FOB has not been dealing with the possibility of fatherhood well. MOB reports there was another person, a prior boyfriend to JASMYNE, that claimed he may be the father, but MOB reports to have no doubt in her mind, that Darshan is the father. MOB reports to live with [place] mother, stepfather, and MOBs 4-year-old brother Shamir. No issue with transportation. 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 Mental Health History: MOB reports history of depression and anxiety, currently on medication for such and plans to remain on in the period. MOB reports history of counseling years ago when [place] father was in the and had to go to [place]. No reports of any thoughts of self-harm or suicidal ideation, plan, intent or attempts. Substance use History: MOB reports to drink alcohol socially. No reports of any drug use or abuse history. JASMYNE does not smoke tobacco. Family/Social Stressors: MOB moved from own apartment into MOBs mothers home this as MOB had too many stairs and parking were not conducive to having a baby. MOB reports this was a stress. Additionally, the FOB not being involved or showing much interest in the baby throughout the . Assessment: Met with MOB and mothers mother together in room, and then privately with MOB. While alone, MOB denies any safety concerns in the home or with any person in MOBs life at this point. MOB pleasant, friendly, and cooperative with social work visit. MOB held good eye contact, mood and affect appropriate and congruent. Observed MOBs mother care for baby while in the room, handle baby appropriately and gently, appearing at ease in baby care. While alone with MOB, baby was in the bedside crib but when baby started for fuss, MOB attended to baby, gentle, appropriate, looked at baby, smiled at baby and talked to baby. MOB identifies having loving feelings for baby and to be happy about being a mother. MOB reports to feel to have adequate support at home, and to have needed baby supplies. MOB does plan to stay on antidepressant medication in the period, and reports may consider counseling. MOB receptive to having list of providers in case MOB decides to move forward with counseling. Talked with MOB and MOBs mother Mendel together about risk for depression and anxiety, importance of seeking out support if symptoms arise. Talked with MOB and mendel regarding some community resources, MOB and Mendel both voiced agreement with a referral to the maternal home visiting program through the [facility]. MOB also agrees for Help Me [facility] referral, to at least talk to [facility] further about programming. Interventions: [facility] referral submitted via the [facility] secure web-based referral system Faxed Maternal home visiting referral form to the [facility] Obtained for MOB last pay stub from her payroll department, so that MOB can use this for WIC. Provided MOB with community resources information for [facility], list of counseling providers on insurance panel, as well as depression packet that includes some online support. Plan: MOB to home with baby at discharge, will have family support and lives with MOBs mother who does not work outside of the home so will be available to help MOB with baby as needed. Referrals are in place. No further needs requested or indicated. -SHELBIE Godinez MSW
--- NOTE | 2018-01-21 12:57 | DCINST_ITS ---
Discharge Diet: No Restrictions Discharge Activity: Return to Normal Activity, May not drive while taking narcotic pain medications., May Shower May resume sexual activity in: 4-6 weeks Call your doctor if your incision/area has: Continuous Slow Oozing, Sudden Increased Bleeding, Increased Pain/ Swelling, Increased Redness, Foul Smelling Discharge Additional Instructions: If you experience any of the following, contact your healthcare provider. * Bleeding that soaks a pad every hour for 2 hours * Fever 100.4 or higher * Unrelieved incision or abdominal pain * Swelling, redness, discharge or bleeding from your incision or episiotomy site * Your incision begins to separate * Problems urinating (including inability to urinate or burning while urinating) . * Visual changes * Severe headache * Flu-like symptoms * Pain or redness in one of both of your breasts * Pain, warmth, tenderness or swelling in your legs, especially the calf area * Frequent nausea and vomiting * Symptoms of depression or anxiety If you experience any of the following, call 911 or go to the nearest Emergency Room. * Chest pain * Problems breathing * Seizure activity * Partial or complete paralysis of a body part, slurred speech, weakness or drooping of the face, or a sudden inability to walk or hold your balance Allergies/Adverse Reactions: Allergies No Known Allergies Allergy (Verified 01/19/18 10:22) Medications to take at Discharge vitamin,calcium,olrydhei-ogwk-ionzp acid tablet 1 tab PO QDAY 07/03/17 breast pump See Dose Instructions .ROUTE .MEDSUPPLY #1 ea 12/30/17 Citalopram Hydrobromide [Citalopram HBr] 20 mg PO QDAY 01/19/18 Docusate Sodium [Colace] 100 mg PO BID #60 cap 01/21/18 Enoxaparin Sodium [Lovenox] 40 mg SQ DAILY 45 Days #14 ml 01/21/18 Hydroxyzine Pamoate [Vistaril] 50 mg PO 4X/DAY PRN PRN #30 cap 01/21/18 Oxycodone HCl/Acetaminophen [Percocet 5-325] 1 - 2 tab PO Q4H PRN PRN 7 Days # 28 tab 01/21/18 The following prescriptions were given: Oxycodone HCl/Acetaminophen [Percocet 5-325] 1 - 2 tab PO Q4H PRN PRN 7 Days # 28 tab PRN Reason: Moderate-Severe pain Enoxaparin Sodium [Lovenox] 40 mg SQ DAILY 45 Days #14 ml Hydroxyzine Pamoate [Vistaril] 50 mg PO 4X/DAY PRN PRN #30 cap PRN Reason: Anxiety Docusate Sodium [Colace] 100 mg PO BID #60 cap Please Follow Up With: Leidy Dutton MD - [phone] When: Call to make an appointment with your doctor in 6 weeks. If you had elevated Blood pressure or 4th degree laceration you will need to be seen in 2 weeks. Test Results: Test results from this visit will be discussed in further detail at your follow- up appointment, if applicable.
--- NOTE | 2018-01-21 12:57 | PCM.PN.OB ---
Patient Problems: Active and Suspected Problems (Last Reviewed 01/19/18 @ 09:20 by Yasmine Mcclellan) Preeclampsia (Acute) Subjective: doing well pain controlled having normal BMs anxiety controlled with vistaril. no CP SOB - Physical Exam General: Alert, Oriented x3 Vital Signs Temp Pulse Resp BP Pulse Ox 97.8 F 94 22 H 119/66 98 01/21/18 08:21 01/21/18 08:21 01/21/18 08:21 01/21/18 08:21 01/21/18 08:21 Oxygen Delivery Method Room Air Weight: 232 lb 2.348 oz Body Mass Index (BMI) 43.8 Intake and Output for Last 24 Hours 01/19/18 01/20/18 01/21/18 23:59 23:59 23:59 Intake Total 2880 / 2880 700 / 700 Output Total 350 / 350 950 / 950 500 / 500 Balance 2530 / 2530 -250 / -250 -500 / -500 Laboratory Tests Past 24 Hrs 01/20/18 Unknown Screen NEGATIVE Baby's Blood Type B POSITIVE Baby's EMILY NEGATIVE Medical Necessity - Tobacco Use Smoking Status: Never smoker Assessment/Plan All Active Problems (Last Reviewed 01/19/18 @ 09:20 by Yasmine Mcclellan) 39 weeks gestation of (Acute) False labor after 37 completed weeks of gestation (Acute) Preeclampsia (Acute) (Acute) screening encounter (Acute) Factor V Leiden mutation affecting (Acute) Rh negative status during (Acute) BMI 40.0-44.9, adult (Acute) Supervision of high-risk (Acute) growth abnormality (Resolved) Threatened labor (Resolved) s/p VAVD ppd 2 1. factor V- lovenox and scds 2. fourth degree laceration- stool softeners 3. depression anxiety- celexa and vistaril routine post delivery care doing well dc home
--- NOTE | 2018-01-21 12:59 | PCM.PN.OB ---
Patient Problems: Active and Suspected Problems (Last Reviewed 01/19/18 @ 09:20 by Yasmine Mcclellan) Preeclampsia (Acute) Subjective: late entry- patient seen 01/20/18 at 7:45 am having urinary retention- s/p straight cath x 1. pain controlled, anxiety controlled with vistaril no CP SOB N V - Physical Exam General: Alert, Oriented x3 Vital Signs Temp Pulse Resp BP Pulse Ox 97.8 F 94 22 H 119/66 98 01/21/18 08:21 01/21/18 08:21 01/21/18 08:21 01/21/18 08:21 01/21/18 08:21 Oxygen Delivery Method Room Air Weight: 232 lb 2.348 oz Body Mass Index (BMI) 43.8 Intake and Output for Last 24 Hours 01/19/18 01/20/18 01/21/18 23:59 23:59 23:59 Intake Total 2880 / 2880 700 / 700 Output Total 350 / 350 950 / 950 500 / 500 Balance 2530 / 2530 -250 / -250 -500 / -500 Laboratory Tests Past 24 Hrs 01/20/18 Unknown Screen NEGATIVE Baby's Blood Type B POSITIVE Baby's EMILY NEGATIVE Medical Necessity - Tobacco Use Smoking Status: Never smoker Assessment/Plan All Active Problems (Last Reviewed 01/19/18 @ 09:20 by Yasmine Mcclellan) 39 weeks gestation of (Acute) False labor after 37 completed weeks of gestation (Acute) Preeclampsia (Acute) (Acute) screening encounter (Acute) Factor V Leiden mutation affecting (Acute) Rh negative status during (Acute) BMI 40.0-44.9, adult (Acute) Supervision of high-risk (Acute) growth abnormality (Resolved) Threatened labor (Resolved) s/p VAVD ppd 1 1. factor V- lovenox and scds 2. fourth degree laceration- stool softeners 3. depression anxiety- celexa and vistaril routine post delivery care doing well dc home tomorrow 01/21
--- NOTE | 2018-01-21 14:17 | NURSING ---
This clinical nursing intern reviewed the charting completed by Vipin Shay and it is complete.
[2018-01-21 15:13] VITALS: BP 118/69; PULSE 105; RESP 17; TEMP 36.9; O2SAT 96
--- NOTE | 2018-01-21 21:17 | PCM.OB.VAG ---
- Problem List (1) Preeclampsia Status: Acute (2) Status: Acute Qualifiers: Comment: (3) screening encounter Status: Acute Comment: MFM consult for NT screening (4) Factor V Leiden mutation affecting Status: Acute Comment: heterozygous, mom had DVT in , no antiocoagulation recommended in unless prolonged immobilization or c section. (5) Rh negative status during Status: Acute Qualifiers: Comment: rhogam at 28 weeks and PRN (6) BMI 40.0-44.9, adult Status: Acute Comment: 1st trimester glucola, recommend weekly nsts and growth US 32 weeks until delivery (7) Supervision of high-risk Status: Acute Qualifiers: Comment: PRR VIVIEN 01/24/18 FOB Darshan (involved) Vaginal Delivery Maternal Presentation: Medically Indicated Induction iol preeclampsia Method of Induction: Pitocin Medical Reason for Induction: Preeclampsia, eclampsia Amniotic Membrane Rupture Type: Artificial Amniotic Fluid Description: Clear Final VIVIEN: 01/15/18 Gestational age: 40 Weeks and 4 Days Date of Procedure: 01/19/18 Pre-Operative Diagnosis: iol preeclampsia, bradycardia Post-Operative Diagnosis: same Surgery/ Procedure Performed: Vacuum Assisted Vaginal Delivery Type of Anesthesia: Epidural Presentation: WANDER Placental Delivery Description: Spontaneous Placenta Disposition: [facility] Cord Vessel Description: 3 Vessels Nuchal Cord Compression: With compression Cord Gases drawn per routine: ABG, VBG Cord Entanglement: Around neck x 1, loose Estimated Blood Loss: 400 A gender: Male Episiotomy Description: Perineal Extension/lac, 3rd degree Laceration: Perineal Extension/lac, 4th Degree Medications given after delivery: IV Pitocin Complications: None
== END 2018-01-21 16:55 | disposition home or self-care (01) | DRG 775 ==
PROVIDERS: Admitting Provider Obstetrics & Gynecology; Visit Provider Obstetrics & Gynecology
DX: O76 Abnormality in fetal heart rate and rhythm complicating labor and delivery (principal); O70.3 Fourth degree perineal laceration during delivery; O99.12 Other diseases of the blood and blood-forming organs and certain disorders involving the immune mechanism complicating childbirth; D68.51 Activated protein C resistance; Z3A.40 40 weeks gestation of pregnancy; Z37.0 Single live birth; O14.94 Unspecified pre-eclampsia, complicating childbirth; O48.0 Post-term pregnancy; O69.81X0 Labor and delivery complicated by cord around neck, without compression, not applicable or unspecified; R33.9 Retention of urine, unspecified; F41.8 Other specified anxiety disorders; O99.344 Other mental disorders complicating childbirth
CPT/HCPCS: 59025; 59050; 82565; 82570; 84156; 84450; 84460; 84550; 85027; 85461; 85610; 85730; 86850; 86900; 90384; 99218; J7030; J7120; A4216; G0378; J2790

== ENCOUNTER → 2020-01-27 | Outpatient (CLI) | payer MEDICAID, SELFPAY ==
[2020-01-27 11:29] VITALS: BMI 38.9
[2020-02-04 22:02] LABS: HPV APTIMA, High Risk Positive (Negative); HPV Reflexed? YES, CHARGE PATIENT
== END | disposition home or self-care (01) ==
LOC: LABSPEC 17:05
PROVIDERS: Referring Provider Obstetrics & Gynecology; Visit Provider Obstetrics & Gynecology
DX: Z12.4 Encounter for screening for malignant neoplasm of cervix (principal)
CPT/HCPCS: 87624; 88175; G0145

== ENCOUNTER → 2020-02-15 | Outpatient (CLI) | payer MEDICAID, SELFPAY ==
--- NOTE | 2020-02-15 | ECC_PTH ---
PATIENT: ALBARO DE LA CRUZ LOC: [facility] U#:[id number] AGE/SX: 24/F ROOM: RE02/15/[address]: Dr. Michelle Pisano MD : 1995 BED: DIS: 02/15/2020 SPEC #: [id number] RECD: 02/15/20 18:07 STATUS: TAJ ALFAROFabiola #: [id number] RUTHY: 02/15/20 00:[address]: Michelle Pisano DEPT: SURGICAL PATHOLOGY RECD BY: Wilian Mcwilliams Tissues: Endocervical Procedures: Surgery Specimen Level IV HEADER OPERATION: Colposcopy PRE-OP DIAGNOSIS: ASCUS HPV+ TISSUE SUBMITTED: ECC MICROSCOPIC DIAGNOSIS Endocervix, curettings (cell block): Rare benign epithelial cells are present. AM:briana 02/17/20 MICROSCOPIC DESCRIPTION Slides are reviewed. GROSS DESCRIPTION Received in fixative is one container labeled with the patient's name and designated endocervix curettings. The specimen consists of a scant amount of soft tissue. The specimen is totally submitted for cell block preparation. / AM:briana 02/16/20 TC:5 CPT: 31178
[2020-02-15 15:54] VITALS: BMI 45.3
== END | disposition home or self-care (01) ==
PROVIDERS: Visit Provider Obstetrics & Gynecology
DX: R87.810 Cervical high risk human papillomavirus (HPV) DNA test positive (principal)
CPT/HCPCS: 88305

== ENCOUNTER 2021-06-19 16:30 | Outpatient (CLI) | payer MEDICAID, SELFPAY ==
[2021-06-19 17:58] LABS: HIV - WCH Non-Reactive (Nonreactive)
[2021-06-21 19:07] LABS: HCV Quant. RNA PCR HCV Not Detected IU/mL (.)
[2021-06-21 21:05] LABS: HSV 1 IgG < 0.91 index (0.00-0.90); HSV 2 IgG < 0.91 index (0.00-0.90)
[2021-06-22 00:06] LABS: Chlamydia By Nucleic Acid AMP Positive (Negative)
[2021-06-22 14:36] LABS: Gonococcus By Nucleic Acid AMP Negative (Negative)
[2021-06-22 20:44] LABS: HPV Reflexed? NOT INDICATED
== END 2021-06-19 23:59 | disposition home or self-care (01) ==
PROVIDERS: Referring Provider Obstetrics & Gynecology; Visit Provider Obstetrics & Gynecology
DX: Z87.42 Personal history of other diseases of the female genital tract (principal); Z11.3 Encounter for screening for infections with a predominantly sexual mode of transmission
CPT/HCPCS: 36415; 86695; 86696; 86703; 87491; 87522; 87591; 88175; G0145

== ENCOUNTER → 2021-10-04 | Outpatient (CLI) | payer MEDICAID, SELFPAY ==
[2021-10-04 20:05] LABS: Chlamydia Trachomatis by PCR Negative (Negative); Neisserai gonorrhoeae by PCR Negative (Negative); Probe Check PASS; Sample Adequacy Control PASS; Specimen Processing Control PASS
== END | disposition home or self-care (01) ==
LOC: LABSPEC 16:39
PROVIDERS: Referring Provider Obstetrics & Gynecology; Visit Provider Obstetrics & Gynecology
DX: A74.9 Chlamydial infection, unspecified (principal)
CPT/HCPCS: 87491; 87591

== ENCOUNTER → 2022-08-13 | Outpatient (CLI) | payer MEDICAID, SELFPAY ==
[2022-08-20 15:54] LABS: HPV Reflexed? NOT INDICATED
== END | disposition home or self-care (01) ==
LOC: LABSPEC 14:29
PROVIDERS: Obstetrics & Gynecology; Referring Provider Nurse Practitioner Women's Health; Visit Provider Nurse Practitioner Women's Health
DX: Z12.4 Encounter for screening for malignant neoplasm of cervix (principal)
CPT/HCPCS: 88175; G0145

== ENCOUNTER → 2022-12-25 | Outpatient (CLI) | payer MEDICAID, SELFPAY ==
[2022-12-27 22:06] LABS: Chlamydia By Nucleic Acid AMP Negative (Negative); Gonococcus By Nucleic Acid AMP Negative (Negative)
== END | disposition home or self-care (01) ==
LOC: LABSPEC 16:53
PROVIDERS: Referring Provider Nurse Practitioner Women's Health; Visit Provider Nurse Practitioner Women's Health
DX: N89.8 Other specified noninflammatory disorders of vagina (principal)
CPT/HCPCS: 87070; 87205; 87491; 87591

== ENCOUNTER → 2023-08-21 | Outpatient (CLI) | payer MEDICAID, SELFPAY ==
[2023-08-25 00:06] LABS: Chlamydia By Nucleic Acid AMP Negative (Negative); Gonococcus By Nucleic Acid AMP Negative (Negative)
== END | disposition home or self-care (01) ==
PROVIDERS: Visit Provider Obstetrics & Gynecology
DX: Z20.2 Contact with and (suspected) exposure to infections with a predominantly sexual mode of transmission (principal)
CPT/HCPCS: 87491; 87591

== ENCOUNTER → 2024-12-10 | Outpatient (CLI) | payer OTHER, SELFPAY ==
--- OUTSIDE RECORDS SUMMARY | 2024-12-10 19:31 | XMS RPT_ITS | CCD ---
Author Organization [facility] Care Team Providers Care Business And Services Instructor Name Role Phone Xavier VILLALPANDO, Anita N Unavailable Unavailab le Xavier VILLALPANDO, Anita N Unavailable Unavailab DIANNA Davison Unavailable Unavailable LEIDY MORRIS Unavailable Unavailosmani wallace NO PRIMARY CAREMD Unavailable Unavailable Sara Camarillo Unavailable Unavailable Dr. Leidy Morris Attending Provider Care Physician, No Primary Primary Care Provider Unavailable Care Physician, No Primary Referring Provider Un available Dr. eLidy Morris Attending Provider [phone] Care Physician, No Primary Primary Care Provider Unavailable Care Physician, No Primary Referring Provider Un available Care Physician, No Primary Primary Care Provider Unavailable Care Physician, No Primary Referring Provider Un available CECY Castle NP Attending Provider ALEE NEVAREZ Referring Unavailable Care Physician, No Primary Primary Care Provider Unavailable Care Physician, No Primary Referring Provider Un available Dr. Leidy Morris Attending Provider Leidy Morris Attending Unavailable Care Physician, No Primary Referring Unava ilable Care Physician, No Primary Primary Care Unava ilable Care Physician, No Primary Primary Care Provider Unavailable Care Physician, No Primary Referring Provider Un available Dr. Leidy Morris MD Attending Provider Allergies Allergy Classification Reported Allergen(s) Allergy Type Date of Onset Reaction(s) Facility (1 source) ALLERGIES NOT ON FILE; Translations: [ALLERGIES NOT ON FILE] Propensity to adverse reactions (disorder) [facility] 2 Repository Medications Current Medications Medication Drug Class(es) Dates Sig (Normalized) Sig (Original) citalopram 20 mg oral tablet (20 sources) Serotonin Reuptake Inhibitor Start: 08-21-2023 End: 12-10-2024 take 1 tablet by mouth once daily Citalopram 20 mg tablet Active 20 mg PO daily 30 December 10, 2024 3:07pm depression Start: 10-04-2021 End: 08-21-2023 take 1 tablet by mouth once daily Citalopram 40 mg tablet Discontinued 40 mg PO daily 30 August 13, 2022 12:18pm August 21, 2023 4:00pm depression Start: 07-03-2017 End: 10-04-2021 take 1 tablet by mouth once daily Citalopram 20 mg tablet Discontinued 20 mg PO daily April 18, 2020 11:20am October 04, 2021 4:19pm depression levonorgestrel 0.051612 mg/hr intrauterine system (6 sources) Progestin, Progestin-containing Intrauterine Device Start: 02-15-2020 Levonorgestrel (Mirena) 20 mcg/24 hours (5 yrs) 52 mg intrauterine device Active 1 NMA INTRA-UTER ONCE February 15, 2020 12:00am as a single dose Start: 02-15-2020 levonorgestrel 20 mcg/24 hours (5 yrs) 52 mg intrauterine device Active 1 DEVICE INTRA-UTER ONCE February 15, 2020 12:00am as a single dose Start: 03-02-2018 End: 03-02-2018 levonorgestrel 20 mcg/24 indu rs (6 yrs) 52 mg intrauterine device Discontinued 1 INSERT INTRA-UTER ONCE March 02, 2018 1:36pm March 02, 2018 1:57pm Completed/Discontinued Medications Medication Drug Class(es) Dates Sig (Normalized) Sig (Original) acetaminophen 325 mg / oxyCODONE hydrochloride 5 mg oral tablet (10 sources) Opioid Agonist Start: 01-21-2018 End: 01-29-2018 Oxycodone-Acetaminoph en 5-325 mg tablet Discontinued 1 - 2 {tbl} PO EVERY 4 HOURS NEEDED as needed for Moderate-Severe pain 10 7 0 January 22, 2018 January 28, 2018 12:00am January 29, 2018 12:07am Other acute postprocedural pain Start: 01-21-2018 End: 01-29-2018 take 1 tablet by mouth every four hours as needed Oxycodone-Acetaminophen Discontinued 1 - 2 TABLET PO EVERY 4 HOURS NEEDED 10 January 22, 2018 January 29, 2018 12:07am azithromycin 500 mg oral tablet (5 sources) Macrolide Antimicrobial Start: 06-23-2021 End: 10-04-2021 take 2 tablets by mouth once Azithromycin 500 mg tablet Discontinued 1000 mg PO ONCE 2 0 June 23, 2021 1:00am October 04, 2021 4:08pm Start: 06-23-2021 End: 10-04-2021 take 1000 mg by mouth once Azithromycin Discontinued 1 000 MG PO ONCE 2 June 23, 2021 1:00am October 04, 2021 4:08pm Breast Pump (4 sources) Start: 12-30-2017 End: 01-27-2020 Breast Pump Discontinued 0 . ROUTE .MEDSUPPLY 1 December 30, 2017 8:46am January 27, 2020 11:20am As directed Start: 12-30-2017 End: 01-27-2020 Breast Pump Discontinued 0 . ROUTE .MEDSUPPLY December 30, 2017 12:00am January 27, 2020 11:20am As directed Breast Pump device (1 source) Start: 12-30-2017 End: 01-27-2020 Breast Pump device Discontinued 0 .ROUTE .MEDSUPPLY 1 0 December 30, 2017 12:00am January 27, 2020 11:20am As directed cephalexin 500 mg oral capsule (5 sources) Cephalosporin Antibacterial Start: 11-20-2017 End: 11-30-2017 take 1 capsule by mouth three times daily Cephalexin (Keflex) 500 mg capsule Discontinued 500 mg PO THREE TIMES A DAY 30 10 0 November 20, 2017 12:00am November 29, 2017 12:00am November 30, 2017 12:07am space evenly during waking hours docusate sodium 100 mg oral capsule (5 sources) Start: 01-21-2018 End: 01-27-2020 take 1 capsule by mouth twice daily Docusate Sodium 100 MG capsule Discontinued 100 mg PO TWICE A DAY 60 3 January 21, 2018 12:00am January 27, 2020 11:19am 0.4 ml enoxaparin sodium 100 mg/ml prefilled syringe (5 sources) Low Molecular Weight Heparin Start: 01-21-2018 End: 01-27-2020 inject 40 mg by subcutaneous injection once daily Enoxaparin 40 MG/0.4 ML syringe Discontinued 40 mg SQ DAILY 14 45 2 January 21, 2018 12:00am January 27, 2020 11:19am fluconazole 150 mg oral tablet (3 sources) Azole Antifungal Start: 12-29-2022 End: 08-21-2023 Fluconazole 150 mg tablet Discontinued 150 mg PO .COMPLEX 2 0 December 29, 2022 12:00am August 21, 2023 3:47pm 150 mg PO take one po now and repeat in 3 days hydrOXYzine pamoate 50 mg oral capsule (20 sources) Antihistamine Start: 01-21-2018 End: 08-21-2023 take 1 capsule by mouth four times daily as needed for anxiety Hydroxyzine Pamoate 50 mg capsule Discontinued 50 mg PO 4 TIMES DAILY NEEDED as needed for Anxiety 30 2 February 22, 2019 10:57am January 27, 2020 11:36am No Reported Medications (1 source) No Reported Medications Refills: 0 Active Prenat.Vits,Kvng,M hp-Jnen-Ipwoo ( Vitamin) tablet (5 sources) Start: 07-03-2017 End: 01-27-2020 take 1 tablet by mouth once daily Prenat.Vits,Kvng,M rh-Ivpw-Yweya ( Vitamin) tablet Discontinued 1 TABLET PO daily July 03, 2017 4:24pm January 27, 2020 11:20am Start: 07-03-2017 End: 01-27-2020 Prenat.Vits,Kvng,Lyn-Oqdc-Tbu ic ( Vitamin) tablet Discontinued 1 {tbl} PO daily July 03, 2017 1:00am January 27, 2020 11:20am Start: 07-03-2017 End: 01-27-2020 take 1 tablet by mouth once daily Prenat.Vits,Kvng,Trs-Uysz-Ztcrz ( Vitamin) tablet Discontinued 1 TABLET PO daily July 03, 2017 1:00am January 27, 2020 11:20am rho(d) immune globulin, human 1500 unt prefilled syringe (1 source) Human Immunoglobulin G Start: 10-23-2017 End: 10-23-2017 inject 1500 [IU] by intramuscular injection once RhoGAM Ultra-Filtered PLUS (rho(D) immune globulin) 1,500 unit (300 mcg) Discontinued 1500 UNIT IM ONCE 1 October 23, 2017 1:30pm October 23, 2017 3:32pm Problems Active Problems Problem Classification Problem Date Documented Date Episodic/Chronic Anxiety disorders (7 sources) Mixed anxiety and depressive disorder; Translations: [Anxiety disorder, unspecified] Chronic Comment on above: celexa increased to 40mg, encouraged counseling. Cancer of cervix (6 sources) Atypical squamous cells of undetermined significance on cervical Papanicolaou smear; Translations: [Atypical squamous cells of undetermined significance on cytologic smear of cervix (ASC-US)] 08-13-2022 Episodic Comment on above: repeat pap negative 2022 Coagulation and hemorrhagic disorders (1 source) Heterozygous Factor V Leiden mutation; Translations: [Primary hypercoagulable state] Chronic Early or threatened labor (5 sources) Threatened premature labor - not delivered ; Translations: [False labor before 37 completed weeks of gestation, unspecified trimester] 01-21-2018 Episodic Immunizations and screening for infectious disease (1 source) Contact with and (suspected) exposure to infections with a predominantly sexual mode of transmission; Translations: [Contact with or exposure to venereal diseases] 12-25-2022 Episodic Nonmalignant breast conditions (1 source) Abscess of breast; Translations: [Inflammatory disease of breast] Episodic Other complications of (5 sources) Complication of , childbirth and/or the puerperium; Translations: [Other diseases of the blood and blood-forming organs and certain disorders involving the immune mechanism complicating , unspecified trimester] 01-21-2018 Episodic Comment on above: heterozygous, mom hdz d DVT in , no antiocoagulation recommended in unless prolonged immobilization or c section. Other complications of (1 source) Other diseases of the blood and blood-forming organs and certain disorders involving the immune mechanism complicating , unspecified trimester; Translations: [Other current conditions classifiable elsewhere of mother, unspecified as to episode of care or not applicable] 08-13-2022 Episodic Other female genital disorders (1 source) Unspecified condition associated with female genital organs and menstrual cycle; Translations: [Other specified symptoms associated with female genital organs] 12-25-2022 Episodic Other nutritional; endocrine; and metabolic disorders (5 sources) Body mass index 40+ - severely obese; Translations: [Body mass index (BMI) 40.0-44.9, adult] 01-21-2018 Chronic Comment on above: 1st trimester glucol a, recommend weekly nsts and growth US 32 weeks until delivery Other screening for suspected conditions (not mental disorders or infectious disease) (2 sources) Encounter for screening for respiratory disorder NEC; Translations: [Encounter for screening for respiratory disorder NEC] Onset: 05-14-2023 Episodic Short gestation; low weight; and growth retardation (1 source) growth abnormality 12-28-2017 Episodic Comment on above: recommend MFM consul t Past or Other Problems Problem Classification Problem Date Documented Date Episodic/Chronic Noninfectious gastroenteritis (2 sources) Gastroenteritis; Translations: [Noninfective gastroenteritis and colitis, unspecified] Onset: 03-28-2017 03-28-2017 Episodic Unclassified (4 sources) growth abnormality; Translations: [ growth abnormality] 01-21-2018 NEGATED: Highlighted row has not occurred!Residual codes; unclassified (1 source) Disease Episodic Results Test Name Value Interpretation Reference Range Facility Chlamydia trachomatis rRNA d etection by probe and target amplification methodOrdered By: Leidy Morris on 08-21-2023 C. trachomatis rRNA ROSEANN+probe Ql (Unsp spec) Negative Negative [facility] Laboratory - Microbiology an d Antimicrobial susceptibilityOrdered By: Leidy Morris on 08-21-2023 N. gonorrhoeae DNA ROSEANN+probe Ql (Unsp spec) Negative Negative [facility] Comment on above: Performed at: [address] [id number] Director: Gladys Scott MD, Phone: [phone] No Panel Informationon 08-20 POC Trichomonas (Rapid) Negative [facility] XR CHEST 1 VIEWon 05-14-2023 XR CHEST 1 VIEW Interpreted By: Luis Jaramillo, STUDY: XR CHEST 1 VIEW 05/14/2023 2:50 pm INDICATION: Signs/Symptoms:SCREENING FOR RESPIRATORY DISORDER NEC COMPARISON: None. ACCESSION NUMBER(S): [id number] ORDERING CLINICIAN: ALEE NEVAREZ TECHNIQUE: A single AP portable radiograph of the chest was obtained. FINDINGS: No focal infiltrate, pleural effusion or pneumothorax is identified. The cardiac silhouette is within normal limits for size. IMPRESSION: No focal infiltrate or pneumothorax is identified. MACRO: None. Signed by: Luis Mantilla 05/14/2023 3:16 PM Dictation workstation: [id number] [facility] Chlamydia trachomatis rRNA d etection by probe and target amplification methodOrdered By: Maryellen Castle on 12-25-2022 C. trachomatis rRNA ROSEANN+probe Ql (Unsp spec) Negative Negative [facility] Gram stain for investigation of transfusion reactionOrdered By: Maryellen Castle on 12-25-2022 Microscopic observation Gram stain Nom (Unsp spec) [facility] Laboratory - Microbiology an d Antimicrobial susceptibilityOrdered By: Maryellen Castle on 12-25-2022 N. gonorrhoeae DNA ROSEANN+probe Ql (Unsp spec) Negative Negative [facility] Comment on above: Performed at: [address] [id number] Director: Gladys Scott MD, Phone: [phone] No Panel Informationon 12-25 POC Bacterial Vaginitis (Rapid) Negative [facility] POC Trichomonas (Rapid) Negative [facility] Thin prep Papanicolaou smear with manual screeningOrdered By: Maryellen Castle on 12-25-2022 Genital Culture Presumptive C albicans [facility] Cervical or vagninal specime n microscopic examination by cytology stain (reported asOrdered By: Dr. Morris on 08-13-2022 Cytology report Cyto stain Doc (Cvx/Vag) Comment . [facility] Comment on above: The Pap smear is a s creening test designed to aid in thedetection of premalignant and malignant conditions of theuterine cervix. It is not a diagnostic procedure andshould not be used as the sole means of detecting cervicalcancer. Both false-positive and false-negative reports dooccur. Laboratory - CytologyOrdered By: Dr. Morris on 08-13-2022 Tree Surgeon Cyto stain Nom (Cvx/Vag) [ID] Comment . [facility] Comment on above: Justin Oneal , Sales Promoter (ASCP) Laboratory - Miscellaneous t estsOrdered By: Dr. Morris on 08-13-2022 Service comment (Unsp spec) [Interp] Comment . [facility] Comment on above: This liquid based Th inPrep(R) pap test was screened withthe use of an image guided system. Service comment (Unsp spec) [Interp] . . [facility] No Panel InformationOrdered By: Dr. Morris on 08-13-2022 Human Papillomavirus Screen Comment . [facility] Comment on above: The HPV DNA reflex c riteria were not met with this specimenresult therefore, no HPV testing was performed.Performed at: [facility] [place] [id number] Director: Gladys Scott MD, Phone: [phone] Pathology report final diagnosis Narrative Comment . [facility] Comment on above: NEGATIVE FOR INTRAEP ITHELIAL LESION OR MALIGNANCY.SHIFT IN MILES SUGGESTIVE OF BACTERIAL VAGINOSIS. Basophil percentageon 2021 C. trachomatis DNA ROSEANN+probe Ql (Unsp spec) Negative Negative [facility] Work Phone: Neisseria gonorrhoeae detect ion by PCRon 10-04-2021 N. gonorrhoeae DNA ROSEANN+probe Ql (Cervical mucus) Negative Negative [facility] Work Phone: .GFRon 06-29-2021 GFR >60 Normal [facility] ([place]) Comment on above: Result Comment: GFR Population mean for , Non- Americans Ages 20-29 = 116 mL/min/1.73 sq.m. Ages 30-39 = 107 mL/min/1.73 sq.m. Ages 40-49 = 99 mL/min/1.73 sq.m. Ages 50-59 = 93 mL/min/1.73 sq.m. Ages 60-69 = 85 mL/min/1.73 sq.m. Ages 70+ = 75 mL/min/1.73 sq.m. Chronic Kidney Disease: Less than 60 mL/min/1.73 square meters End Stage Renal Disease: Less than 15 mL/min/1.73 square meters Performed By: #### C BC, ADIFF, ANEU, CMP, TSH, FT4, VIDH, GFR #### [place] [address] GFR Non- >60 Normal [facility] ([place]) Comment on above: Result Comment: GFR Population mean for , Non- Americans Ages 20-29 = 116 mL/min/1.73 sq.m. Ages 30-39 = 107 mL/min/1.73 sq.m. Ages 40-49 = 99 mL/min/1.73 sq.m. Ages 50-59 = 93 mL/min/1.73 sq.m. Ages 60-69 = 85 mL/min/1.73 sq.m. Ages 70+ = 75 mL/min/1.73 sq.m. Chronic Kidney Disease: Less than 60 mL/min/1.73 square meters End Stage Renal Disease: Less than 15 mL/min/1.73 square meters Performed By: #### C BC, ADIFF, ANEU, CMP, TSH, FT4, VIDH, GFR #### [address] [address] CMPon 06-29-2021 Albumin Level 3.5 G/dL Normal 3.2-4.8 [facility] ([place]) Comment on above: Performed By: #### C BC, ADIFF, ANEU, CMP, TSH, FT4, VIDH, GFR #### [address] [address] Albumin/Globulin [Mass ratio] 1.0 {ratio} Normal 0.9-1.6 [facility] ([place] Comment on above: Performed By: #### C BC, ADIFF, ANEU, CMP, TSH, FT4, VIDH, GFR #### [address] [address] ALP [Catalytic activity/Vol] 104 U/L Normal 38-126 [facility] ([place] Comment on above: Performed By: #### C BC, ADIFF, ANEU, CMP, TSH, FT4, VIDH, GFR #### [address] [address] ALT [Catalytic activity/Vol] 15 U/L Normal 10-49 [facility] ([place] Comment on above: Performed By: #### C BC, ADIFF, ANEU, CMP, TSH, FT4, VIDH, GFR #### [address] [address] AST [Catalytic activity/Vol] 22 U/L Normal 8-34 [facility] ([place] Comment on above: Performed By: #### C BC, ADIFF, ANEU, CMP, TSH, FT4, VIDH, GFR #### [address] [address] Bili Total 0.40 mg/dL Normal 0.20-1.20 [facility] ([place] Comment on above: Result Comment: Use of this assay is not recommended for patients undergoing treatment with eltrombopag due to the potential for falsely elevated results. Performed By: #### C BC, ADIFF, ANEU, CMP, TSH, FT4, VIDH, GFR #### [address] [address] BUN/Creatinine Ratio 19.7 ratio Normal 10.0-22.0 [facility] ([place]) Comment on above: Performed By: #### C BC, ADIFF, ANEU, CMP, TSH, FT4, VIDH, GFR #### [address] [address] Calcium [Mass/Vol] 9.3 mg/dL Normal 8.7-10.4 [facility] ([place]) Comment on above: Result Comment: No te - New Reference Range in effect 19 Performed By: #### C BC, ADIFF, ANEU, CMP, TSH, FT4, VIDH, GFR #### [address] [address] Chloride [Moles/Vol] 108 mmol/L Normal 98-110 [facility] ([place]) Comment on above: Performed By: #### C BC, ADIFF, ANEU, CMP, TSH, FT4, VIDH, GFR #### [address] [address] CO2 [Moles/Vol] 24 mmol/L Normal 22-32 [facility] ([place] Comment on above: Performed By: #### C BC, ADIFF, ANEU, CMP, TSH, FT4, VIDH, GFR #### [address] [address] Creatinine [Mass/Vol] 0.71 mg/dL Normal 0.50-1.20 [facility] ([place]) Comment on above: Performed By: #### C BC, ADIFF, ANEU, CMP, TSH, FT4, VIDH, GFR #### [address] [address] Electrolyte Balance 8.0 mEq/L Normal 4.0-15.0 [facility] ([place]) Comment on above: Performed By: #### C BC, ADIFF, ANEU, CMP, TSH, FT4, VIDH, GFR #### [address] [address] Globulin 3.4 G/dL Normal 1.5-3.8 [facility] ([place] Comment on above: Performed By: #### C BC, ADIFF, ANEU, CMP, TSH, FT4, VIDH, GFR #### [address] [address] Glucose [Mass/Vol] 88 mg/dL Normal 70-110 [facility] ([place]) Comment on above: Performed By: #### C BC, ADIFF, ANEU, CMP, TSH, FT4, VIDH, GFR #### [address] [address] Potassium [Moles/Vol] 4.4 mmol/L Normal 3.5-5.0 [facility] ([place]) Comment on above: Result Comment: Spec imen slightly hemolyzed. Performed By: #### C BC, ADIFF, ANEU, CMP, TSH, FT4, VIDH, GFR #### [address] [address] Sodium [Moles/Vol] 140 mmol/L Normal 136-145 [facility] ([place]) Comment on above: Performed By: #### C BC, ADIFF, ANEU, CMP, TSH, FT4, VIDH, GFR #### [address] [address] Total Protein 6.9 G/dL Normal 5.7-8.2 [facility] ([place] Comment on above: Result Comment: No te - New Reference Range in effect 19 Performed By: #### C BC, ADIFF, ANEU, CMP, TSH, FT4, VIDH, GFR #### [address] [address] Urea nitrogen [Mass/Vol] 14.0 mg/dL Normal 8.0-22.0 [facility] ([place] Comment on above: Performed By: #### C BC, ADIFF, ANEU, CMP, TSH, FT4, VIDH, GFR #### [address] [address] FT4on 06-29-2021 Free T4 1.08 mcg/dL Normal 0.89-1.76 [facility] ([place] Comment on above: Result Comment: No te - New Reference Range in effect 19 Performed By: #### C BC, ADIFF, ANEU, CMP, TSH, FT4, VIDH, GFR #### [place] [address] TSHon 06-29-2021 TSH 2.835 mIU/mL Normal 0.550-4.780 [facility] ([place] Comment on above: Result Comment: No te - New Reference Range in effect 19 Performed By: #### C BC, ADIFF, ANEU, CMP, TSH, FT4, VIDH, GFR #### [place] [address] VIDHon 06-29-2021 Vit. D 25-Hydroxy 11.2 ng/mL Normal [facility] ([place]) Comment on above: Result Comment: Inte rpretive Values Based on Total 25(OH)D: Severe Deficiency <20 ng/mL Mild to Moderate Deficiency 20-30 ng/mL Optimum Levels 30-100 ng/mL Toxicity Possible >100 ng/mL Performed By: #### C BC, ADIFF, ANEU, CMP, TSH, FT4, VIDH, GFR #### [place] [id number] .Auto Diffon 06-28-2021 Basophil, Absolute 0.10 10 3/mcL Normal 0.00-0.27 [facility] ([place]) Comment on above: Performed By: #### C BC, ADIFF, ANEU, CMP, TSH, FT4, VIDH, GFR #### [address] [address] Basophils/100 WBC (Bld) 0.7 % Normal 0.0-2.5 [facility] ([place] Comment on above: Performed By: #### C BC, ADIFF, ANEU, CMP, TSH, FT4, VIDH, GFR #### [address] [address] Eosinophil, Absolute 0.20 10 3/mcL Normal 0.00-0.65 [facility] ([place]) Comment on above: Performed By: #### C BC, ADIFF, ANEU, CMP, TSH, FT4, VIDH, GFR #### [address] [address] Eosinophils/100 WBC (Bld) 1.7 % Normal 0.0-6.0 [facility] ([place]) Comment on above: Performed By: #### C BC, ADIFF, ANEU, CMP, TSH, FT4, VIDH, GFR #### [address] [address] Lymphocyte, Absolute 3.20 10 3/mcL Normal 0.90-4.32 [facility] ([place]) Comment on above: Performed By: #### C BC, ADIFF, ANEU, CMP, TSH, FT4, VIDH, GFR #### [address] [address] Lymphocytes/100 WBC (Bld) 29.7 % Normal 20.0-40.0 [facility] ([place] Comment on above: Performed By: #### C BC, ADIFF, ANEU, CMP, TSH, FT4, VIDH, GFR #### [address] [address] Monocyte, Absolute 0.60 10 3/mcL Normal 0.09-1.40 [facility] ([place]) Comment on above: Performed By: #### C BC, ADIFF, ANEU, CMP, TSH, FT4, VIDH, GFR #### [address] [address] Monocytes/100 WBC (Bld) 5.5 % Normal 2.0-13.0 [facility] ([place] Comment on above: Performed By: #### C BC, ADIFF, ANEU, CMP, TSH, FT4, VIDH, GFR #### [address] [address] Neutrophils/100 WBC (Bld) 62.4 % Normal 50.0-75.0 [facility] ([place] Comment on above: Performed By: #### C BC, ADIFF, ANEU, CMP, TSH, FT4, VIDH, GFR #### [place] [address] .NEUABSon 06-28-2021 Neutrophil, Absolute 6.70 10 3/mcL Normal 2.25-8.10 [facility] ([place]) Comment on above: Performed By: #### C BC, ADIFF, ANEU, CMP, TSH, FT4, VIDH, GFR #### [place] [address] CBCon 06-28-2021 Erythrocyte distribution width (RBC) [Ratio] 12.4 % Normal 11.5-15.5 [facility] ([place] Comment on above: Performed By: #### C BC, ADIFF, ANEU, CMP, TSH, FT4, VIDH, GFR #### [place] [address] Hematocrit (Bld) [Volume fraction] 40.7 % Normal 34.0-46.0 [facility] ([place] Comment on above: Performed By: #### C BC, ADIFF, ANEU, CMP, TSH, FT4, VIDH, GFR #### [place] [address] Hgb 13.6 G/dL Normal 12.0-16.0 [facility] ([place] Comment on above: Performed By: #### C BC, ADIFF, ANEU, CMP, TSH, FT4, VIDH, GFR #### [place] [address] MCH (RBC) [Entitic mass] 28.2 pg Normal 27.0-33.0 [facility] ([place] Comment on above: Performed By: #### C BC, ADIFF, ANEU, CMP, TSH, FT4, VIDH, GFR #### [place] [address] MCHC 33.4 G/dL Normal 32.0-36.0 [facility] ([place] Comment on above: Performed By: #### C BC, ADIFF, ANEU, CMP, TSH, FT4, VIDH, GFR #### [place] [address] MCV (RBC) [Entitic vol] 84.6 fL Normal 80.0-99.0 [facility] ([place] Comment on above: Performed By: #### C BC, ADIFF, ANEU, CMP, TSH, FT4, VIDH, GFR #### [place] [address] Platelet 349 10 3/mcL Normal 150-450 [facility] ([place] Comment on above: Performed By: #### C BC, ADIFF, ANEU, CMP, TSH, FT4, VIDH, GFR #### [place] [address] Platelet mean volume (Bld) [Entitic vol] 7.7 fL Normal 6.6-10.5 [facility] ([place] Comment on above: Performed By: #### C BC, ADIFF, ANEU, CMP, TSH, FT4, VIDH, GFR #### [place] [address] RBC 4.81 10 6/mcL Normal 4.10-5.30 [facility] ([place] Comment on above: Performed By: #### C BC, ADIFF, ANEU, CMP, TSH, FT4, VIDH, GFR #### [place] [address] WBC 10.70 10 3/mcL Normal 4.50-10.80 [facility] Comment on above: Performed By: #### C BC, ADIFF, ANEU, CMP, TSH, FT4, VIDH, GFR #### [address] [address] Basophil percentageon 2021 Basophil [facility] Phone: Comment on above: Test not performed Cervical or vagninal specime n microscopic examination by cytology stain (reported ason 06-19-2021 Cytology report Cyto stain Doc (Cvx/Vag) Comment [facility] Work Phone: Comment on above: The Pap smear is a s creening test designed to aid in thedetection of premalignant and malignant conditions of theuterine cervix. It is not a diagnostic procedure andshould not be used as the sole means of detecting cervicalcancer. Both false-positive and false-negative reports dooccur. Chlamydia trachomatis rRNA d etection by probe and target amplification methodon 06-19-2021 C. 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 gonorrhoeae DNA ROSEANN+probe Ql (Unsp spec) Negative Negative [facility] Work Phone: Comment on above: Performed at: G - [address] [id number] Director: Gladys Scott MD, Phone: [phone] Laboratory - Miscellaneous t estson 06-19-2021 Service comment (Unsp spec) [Interp] Comment [facility] Work Phone: Comment on above: This liquid based Th inPrep(R) pap test was screened withthe use of an image guided system. Service comment (Unsp spec) [Interp] . [facility] Work Phone: No Panel Informationon 06-19 Human Papillomavirus Screen Comment [facility] Work Phone: Comment on above: The HPV DNA reflex c jessika were not met with this specimenresult therefore, no HPV testing was performed.Performed at: - [facility] [address] [id number] Director: Gladys Scott MD, Phone: [phone] Pathology report final diagnosis Narrative Comment [facility] Work Phone: Comment on above: NEGATIVE FOR INTRAEP ITHELIAL LESION OR MALIGNANCY. Addendum Document Comment [facility] Work Phone: Comment on above: The quantitative ran ge of this assay is 15 IU/mL to 100million IU/mL. Herpes Simplex Virus I IgG Antibody < 0.91 index [facility] Work Phone: Comment on above: Negative <0.91 Equiv ocal 0.91 - 1.09 Positive >1.09 Note: Negative indicates no antibodies detected to HSV-1. Equivocal may suggest early infection. If clinically appropriate, retest at later date. Positive indicates antibodies detected to HSV-1. Serum herpes simplex virus 2 antibody assay by immunoassay (units/volume)on 06-19-2021 HSV 2 Ab IA Qn (S) < 0.91 index [facility] [place] Work Phone: Comment on above: Negative <0.91 Equiv ocal 0.91 - 1.09 Positive >1.09 Note: Negative indicates no HSV-2 antibodies detected. Positive indicates HSV-2 antibodies detected. Equivocal and low positive HSV-2 screens (Index 0.91-5.00) may be false positive and are reflexed to supplemental testing in accordance with CDC guidelines.Performed at: [facility] Shiftboard Online Scheduling[address] [id number] Director: Giuseppe Aviles MD, Phone: [phone] at: [facility] Lab[address] [id number] Director: Jose Haywood PhD, Phone: [phone] Serum or plasma hepatitis C virus RNA measurement by probe and target amplification mon 06-19-2021 HCV RNA ROSEANN+probe Qn Not detected [facility] Work Phone: CNNURSEon 02-25-2021 CNNURSE Nurse Visit (UCUPNO) ----- ALBARO HO ([id number]) 1995 F Date Time Provider Department 02/25/21 3:[address] [facility] During your visit today, we recorded the following information about you: Michelle Moyer MA 02/25/2021 3:41 PM Signed PPD or TB vaccine given as ordered Michelle Moyer MA Referring Provider: SELF [200] Allergies As of Date: 02/25/2021 (No Known Allergies) Date Reviewed: 09/06/2020 Reviewed by: Ginna Crouch Ma Student - Fully Assessed Reason for Visit: PPD Screening Or Test [3593] Primary Visit Diagnosis:PPD screening test [Z11.1] Order(s):PPD (TB INTRADERMAL 23345) B/O [4962002] Order #: [id number] Prescriptions as of 02/25/2021 - citalopram (CELEXA) 20 mg tablet TAKE 1 TABLET BY MOUTH DAILY for depression - hydrOXYzine pamoate (VISTARIL) 50 mg capsule TAKE 1 CAPSULE BY MOUTH FOUR TIMES DAILY NEEDED FOR ANXIETY - citalopram (CELEXA) 20 mg tablet TAKE 1 TABLET BY MOUTH DAILY for depression Problem List As Of Date 02/25/2021 Noted Resolved Heterozygous factor V Leiden mutation (HCC) [D6*11/20/2015 Visit Notes: >> SELENE Padilla Feb 25, 2021 3:41 PM Status: Signed PPD or TB vaccine given as ordered Michelle Moyer MA Encounter Status:Closed by MICHELLE MOYER on 02/25/21 [facility] CNOVon 09-06-2020 CNOV Office Visit ([facility] ) ----- ALBARO HO ([id number]) 1995 F Date Time Provider Department 09/06/20 2:20 PM ERIN WU During your visit today, we recorded the following information about you: Temperature Pulse Respiration Blood pressure 98.3 degrees 92/minute 16/minute 105/73 Weight 104.3 kg Deepika Milton Him Analyst Student 09/06/2020 2:55 PM Signed Use antibiotic drops as prescribed. Wash your hands well before touching eyes or putting in eye drops. Ok for a warm compress to your eye 2-3 times per day as needed. Keep the skin to your face and around your eyes clean and dry. Pat dry and do not rub or scratch your eye. I recommend over the counter Ibuprofen as directed as needed for discomfort. Do not use any other eye drops or ointments in your eyes. Follow up with your primary care provider or an eye doctor in 3-5 days if symptoms do not improve, sooner if symptoms worsen. Go to the Emergency department for any changes in vision. Mariel Persaud APRN.MANAGER POWER 09/06/2020 7:54 PM Signed September 06, 2020 Subjective Chief Complaint: Eye Problem (Patient states left eye is iching and burning started 3 days ago, Has had eye infections before in the left eye, Tried OTC eye drops) HPI: Albaro Ho is a 25 year old female who presents today for a 3 day history of left eye irritation. Patient states she's not had any injury or trauma to the eye, describes pain as itching and burning, states discomfort seems worse when she closes her eye. Denies any drainage or eye discharge. Patient states she's tried over the counter ibuprofen for discomfort and states relief noted. States she's also tried over the counter eye drops and states eye drops worsened the pain and irritation. Denies any discomfort or redness to her right eye, denies any blurred or double vision. PAST MEDICAL HISTORY Diagnosis Date - Anxiety state childhood - Depressive disorder, not elsewhere classified childhood - Heterozygous factor V Leiden mutation (HCC) 11/20/2015 PAST SURGICAL HISTORY Procedure Laterality Date - NONE FAMILY HISTORY Problem Relation Age of Onset - other (Factor V Leiden) Mother 42 Social History Tobacco Use - Smoking status: Never Smoker - Smokeless tobacco: Never Used Vaping Use - Vaping Use: Never used Substance Use Topics - Alcohol use: Yes Comment: occ. - Drug use: No ALLERGIES No Known Allergies There is no immunization history on file for this patient. Current Medications: citalopram (CELEXA) 20 mg tablet TAKE 1 TABLET BY MOUTH DAILY for depression hydrOXYzine pamoate (VISTARIL) 50 mg capsule TAKE 1 CAPSULE BY MOUTH FOUR TIMES DAILY NEEDED FOR ANXIETY citalopram (CELEXA) 20 mg tablet TAKE 1 TABLET BY MOUTH DAILY for depression trimethoprim-polymyxin eye drops (POLYTRIM) ophthalmic solution Use 1 Drop in the left eye every 6 hours for 5 days. Review of Systems Constitutional: Negative for chills, fever and weight loss. HENT: Negative. Negative for congestion and sore throat. Eyes: Positive for pain and redness. Negative for blurred vision, double vision, photophobia and discharge. Respiratory: Negative. Cardiovascular: Negative. Gastrointestinal: Negative. Genitourinary: Negative. Musculoskeletal: Negative. Skin: Positive for itching (To outside of left eye). Neurological: Negative. Endo/Heme/Allergies: Negative. Psychiatric/Behavioral: Negative. Objective BP 105/73 Pulse 92 Temp 98.3 Resp 16 Wt 230 lb (104.3kg) SpO2 98% Physical Exam Vitals reviewed. Constitutional: General: She is not in acute distress. Appearance: Normal appearance. She is not ill-appearing or toxic-appearing. HENT: Head: Normocephalic and atraumatic. Nose: Nose normal. Mouth/Throat: Mouth: Mucous membranes are moist. Pharynx: Oropharynx is clear. Eyes: General: No scleral icterus. Right eye: No discharge. Left eye: No discharge. Extraocular Movements: Extraocular movements intact. Conjunctiva/sclera: Conjunctivae normal. Pupils: Pupils are equal, round, and reactive to light. Comments: Localized light pink erythema noted to the skin of the outer canthus of the left eye. No erythema to the conjunctiva or sclera. Pupils 3mm PERRLA bilaterally. Fluorescein staining performed to left eye, no corneal abrasion or foreign body visualized. Cardiovascular: Heart sounds: Normal heart sounds. Pulmonary: Effort: Pulmonary effort is normal. Musculoskeletal: Cervical back: Normal range of motion and neck supple. Skin: General: Skin is warm and dry. Neurological: Mental Status: She is alert and oriented to person, place, and time. Psychiatric: Mood and Affect: Mood normal. ASSESSMENT/PLAN: 1. Irritation of left eye - ICD9: 379.99, ICD10: H57.89 - POLYMYXIN B SULFATE 10,000 UNIT-TRIMETHOPRIM 1 MG/ML EYE DROPS Use antibiotic drops as presc (more content not included)... Normal [facility] STRP SCNon 07-09-2019 STRP SCN Performed at: [facility] [address], [place] [address] STREP SCREEN POSITIVE REFERENCE RANGE NORMAL RESULT IS NEGATIVE. Normal [facility] PROGRESSon 02-09-2018 Protein mass conc HNO ID: [id number] thor: Provider CchsService: (none)Author Type: PhysicianType: Progress NotesFiled: 03/12/2018 9:21 PMNote Text:[facility] CARE [place], [place] [address]CUMGF CARE REPORTPatient: GLADYS HO,HAYDE-Tyree [id number] FStatus: REG POV FCDate of Service: 02/09/18Report Date AND Time: 02/09/18 1557HPIHistory Of Present IllnessChief ComplaintEye Problem/Pain (FC)CC HistoryPt comes in today stating she has an eye infection. States she had asimilar thing a couple years ago that they couldnt figure out what it wasand she was put on eye drops for an infection and it cleared up. Statesshe noticed it yesterday. She has a 3 wk baby at home and occasionallypumpsVital SignsVital SignsFirst LastResult Date Time Result Date TimePulse Ox 97 02/09 1532 97 02/09 1532B/P 92/66 02/09 1532 92/66 02/09 1532Temp 98.0 02/09 1532 98.0 02/09 1532Pulse 83 02/09 1532 83 02/09 1532Resp 20 02/09 1532 20 02/09 153MedicationsReported MedicationsCitalopram* Hbr (Celexa*) 10 MG PO QDAY[anxiety mad]Enoxaparin* Sodium (Lovenox*) 30 MG SC [id number] Allergies:No Known Drug Allergies (02/09/18)Patient Health HistoryMedical ProblemsAnxietyDepression Factor 5 Leiden mutation, heterozygousHordeolum of right eyeSurgical ProblemsNo pertinent past surgical historySocial History ProblemsCurrent non-drinker of alcoholNonsmokerOARRS Accessed and ReviewedNOLNMP:1yr agoAdvanced DirectivesAdvanced DirectivesN/AAdv Dir Info GivenNoAlcohol ScreeningAlcohol Use:NoReview of SystemsGeneralDenies: Body Aches, Fever, Chills.SkinNo: Rash.HeadDenies: Headaches.EyesRedness. Denies: Visual Changes, Eye Pain.Physical ExaminationGeneralAlert, Oriented X3, CooperativeSkinPink, Warm, and Dry, Well HydratedHeadNormocephalic Eyesslight reddness noted medial upper lid. Small lump felt underneath.likely a stye. Pt states she wants the eye antibiotic drops since thatworked in the past and she has a 3wk old at home. Explained a stye isnot contagious and not likely bacterial in nature. Pt still insisting oneye drops.Impression And PlanDischarge InstructionsIncrease Liquids, Tylenol every 4 hrsSpecial InstructionsoFollow up with your Primary Care Physician in 5-7 days if no improvementin your condition.oCall or return to [facility] if you experience problems relating to yourvisit or call .Use warm compresses multiple times a day on the right eye. If noimprovement in a couple weeks, follow up with your eye doctor.All medications and their side effects were explained to the patient andwere understood.At home instructions were explained to the patient and were understood.Report to the [facility] Emergency Department if any further problemsoccur.Diagnosis1. Hordeolum of right eye*PrescriptionsPrescrip tions (FC)Medication Dose/Rte/Freq Days Qty EnteredMax Daily DoseAzithromycin* 1% Ophth 1 DROP OD 2.5 02/09/18(Azasite* 1% Ophth) DIRECTED 1555Strength: 2.5 ML ENRIKE 02/09/18 1600 LISA MARTINO.N.P. << Signature on File>> Reported By: MARJORIE MARTINO.NRadhaPRadha Signed By: MARJORIE MARTINONRadhaPRadhaTests performed at:[address] [phone] Normal [facility] Office Visit: UC: anitaon 03-28-2017 Documentation of current medications (procedure) Done Invalid Interpretation Code [facility] Work Phone: Documentation of current medications (procedure) T Invalid Interpretation Code [facility] Work Phone: Fall risk assessment No Invalid Interpretation Code [facility] Work Phone: Tobacco use CPHS Never smoker Invalid Interpretation Code [facility] Work Phone: Vital Signs Date Time Vital Sign Value Performing Clinician Marcia yi 12-10-2024 14:56-0400 Body height 154.31 cm No Primary Care Physician [facility] 12-10-2024 14:56-0400 Body mass index (BMI) [Ratio] 46.3 kg/m2 No Primary Care Physician [facility] 12-10-2024 14:56-0400 Body weight 110.39 kg No Primary Care Physician [facility] 12-10-2024 14:56-0400 Diastolic blood pressure 77 mm[Hg] No Primary Care Physician [facility] 12-10-2024 14:56-0400 Systolic blood pressure 116 mm[Hg] No Primary Care Physician [facility] 08-21-2023 15:51-0400 Body height 154.31 cm No Primary Care Physician [facility] 08-21-2023 15:44-0400 Body mass index (BMI) [Ratio] 47.8 kg/m2 No Primary Care Physician [facility] 08-21-2023 15:44-0400 Body weight 113.85 kg No Primary Care Physician [facility] 08-21-2023 15:44-0400 Diastolic blood pressure 75 mm[Hg] No Primary Care Physician [facility] 08-21-2023 15:44-0400 Systolic blood pressure 119 mm[Hg] No Primary Care Physician [facility] 12-25-2022 14:53-0400 Body height 154.31 cm No Primary Care Physician [facility] 12-25-2022 14:47-0400 Body mass index (BMI) [Ratio] 49.6 kg/m2 No Primary Care Physician [facility] 12-25-2022 14:47-0400 Body weight 118.1 kg No Primary Care Physician [facility] 12-25-2022 14:47-0400 Diastolic blood pressure 82 mm[Hg] No Primary Care Physician [facility] 12-25-2022 14:47-0400 Systolic blood pressure 124 mm[Hg] No Primary Care Physician [facility] 08-13-2022 12:09-0400 Body height 154.31 cm No Primary Care Physician [facility] 08-13-2022 12:08-0400 Body mass index (BMI) [Ratio] 48.4 kg/m2 No Primary Care Physician [facility] 08-13-2022 12:08-0400 Body weight 116.34 kg No Primary Care Physician [facility] 08-13-2022 12:08-0400 Diastolic blood pressure 77 mm[Hg] No Primary Care Physician [facility] 08-13-2022 12:08-0400 Systolic blood pressure 109 mm[Hg] No Primary Care Physician [facility] 10-04-2021 16:08-0400 Body height 154.[address] Leidy Morris Work Phone: [facility] Work Phone: 10-04-2021 16:08-0400 Body mass index (BMI) [Ratio] 47.6 kg/m2 Dr. Leidy Morris Work Phone: [facility] Work Phone: 10-04-2021 16:08-0400 Body weight 113.[address] Leidy Morris Work Phone: [facility] Work Phone: 10-04-2021 16:08-0400 Diastolic blood pressure 88 mm[Hg] Dr. Leidy Morris Work Phone: [facility] Work Phone: 10-04-2021 16:08-0400 Systolic blood pressure 120 mm[Hg] Dr. Leidy Morris Work Phone: [facility] Work Phone: 06-19-2021 14:48-0500 Body mass index (BMI) [Ratio] 46.6 kg/m2 Dr. Leidy Morris Work Phone: [facility] Work Phone: 06-19-2021 14:48-0500 Body weight 111.[address] Leidy Morris Work Phone: [facility] Work Phone: 06-19-2021 14:48-0500 Diastolic blood pressure 88 mm[Hg] Dr. Leidy Morris Work Phone: [facility] Work Phone: 06-19-2021 14:48-0500 Systolic blood pressure 122 mm[Hg] Dr. Leidy Morris Work Phone: [facility] Work Phone: 03-28-2017 16:00-0500 BMI (Body Mass Index) 39.52 kg/m2 Anita Park LPN [facility] Work Phone: 03-28-2017 16:00-0500 Body Temperature 98.9 [degF] Anita Park LPN [facility] Work Phone: 03-28-2017 16:00-0500 BP Diastolic 76 mm[Hg] Anita Park LPN [facility] Work Phone: 03-28-2017 16:00-0500 BP Systolic 118 mm[Hg] Anita Park LPN [facility] Work Phone: 03-28-2017 16:00-0500 Height 154.94 cm Anita Park LPN [facility] Work Phone: 03-28-2017 16:00-0500 Pulse (Heart Rate) 82 /min Anita Park LPN [facility] Work Phone: 03-28-2017 16:00-0500 Respiratory Rate 14 /min Anita Park IRASEMA [facility] Work Phone: 03-28-2017 16:00-0500 Weight 94.89 kg Anita Park LPN [facility] Work Phone: Encounters Encounter Date Encounter Type Care Provider Facility Start: 12-10-2024 End: 12-10-[address] Leidy Morris MD -[facility] Work Phone: Start: 12-10-2024 End: 12-10-[address] Leidy Morris MD [facility] Start: 12-10-2024 End: 12-10-2024 ambulatory Leidy Morris Facility:[facility] Start: 08-21-2023 End: 08-21-2023 ambulatory No Primary Care Physician [facility] Work Phone: Start: 08-21-2023 End: 08-21-2023 Patient encounter procedure No Primary Care Physician [facility] Specimen Work Phone: Start: 08-21-2023 End: 08-21-2023 Patient encounter procedure No Primary Care Physician [facility] Work Phone: Start: 05-14-2023 End: 05-15-2023 ambulatory [facility] Start: 12-25-2022 End: 12-25-2022 ambulatory No Primary Care Physician [facility] Work Phone: Start: 12-25-2022 End: 12-25-2022 Patient encounter procedure No Primary Care Physician [facility] Work Phone: Start: 12-25-2022 End: 12-25-2022 Patient encounter procedure No Primary Care Physician [facility] Work Phone: Start: 08-13-2022 End: 08-13-2022 ambulatory No Primary Care Physician [facility] Work Phone: Start: 08-13-2022 End: 08-13-2022 Patient encounter procedure No Primary Care Physician [facility] Start: 08-13-2022 End: 08-13-2022 Patient encounter procedure No Primary Care Physician [facility] Start: 10-04-2021 End: 10-04-[address] Leidy Morris Work Phone: [facility] Start: 06-19-2021 End: 06-19-[address] Leidy Morris Work Phone: [facility] Start: 12-08-2017 Patient encounter DIANNA PERALTA [facility] Procedures Date Procedure Procedure Detail Performing Clinician Start: 05-14-2023 XR CHEST 1 VIEW HUSSEINAIMEE HALEKADEN Start: 12-25-2022 Cytopathology proced ure, preparation of smear, genital source No Primary Care Physician Start: 12-25-2022 Investigation of transfusion reaction No Primary Care Physician Plan of Treatment Date Care Activity Detail Author Start: 03-28-2017 End: 03-28-2017 Appointment Appointment [facility] Work Phone: [facility] Work Phone: Immunizations Immunization Date Immunization Notes Care Provider Natalee gonzalez 11-06-2017 tetanus toxoid, reduced diphtheria toxoid, and acellular pertussis vaccine, adsorbed Dr. Leidy Morris Work Phone: [facility] 11-06-2017 diphtheria, tetanus toxoids and acellular pertussis vaccine, unspecified formulation Dr. Leidy Morris Work Phone: [facility] Work Phone: 02-10-2017 influenza, injectabl e, quadrivalent, preservative free No Primary Care Physician [facility] 02-10-2017 influenza, seasonal, injectable Dr. Leidy Morris Work Phone: [facility] 12-30-[address] Leidy Morris Work Phone: [facility] 12-25-2016 hepatitis B vaccine, pediatric or pediatric/adolescent dosage Dr. Leidy Morris Work Phone: [facility] Payers Date Payer Category Payer Self-pay [id number] 2024 Unknown [id number] Unknown [id number] Unknown [id number] Social History Date Type Detail Facility Start: 10-04-2021 End: 08-21-2023 Tobacco smoking status MOIS Unknown if ever smoked [facility] Start: 1995 Sex Assigned At Female [facility] Start: 01-19-2018 None [facility] Start: 12-10-2024 Tobacco smoking status NHIS Never smoked tobacco (finding) [facility] NEGATED: Highlighted row - - - [facility] Work Phone: Functional Status Date Assessment Result Facility NEGATED: Highlighted row Functional performance Functional status health issues are not documented Disease [facility] Work Phone: Mental Status Date Assessment Result Facility NEGATED: Highlighted row Cognitive function [Interpretation] Cognitive status health issues are not documented Disease -[facility] Work Phone: Clinical Notes 09-06-2020 to 12-10-2024 Note Date & Type Note Facility 12-10-2024 Progress note [facility] 12-10-2024 Progress note Note Date/Time December 10, 2024 3:11pm [facility] [address], [address] [place] [address] OFFICE VISIT Date of Service: 12/10/24 MR#: [id number] Acct: [id number] Name: ALBARO HO Rep #: [id number] : 1995 Provider: Dr. 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: No Is patient in pain?: No Allergies No Known Allergies Allergy (Verified 12/10/24 14:58) Medications ?Medication ?Instructions ?Recorded ?Confirmed ?Type levonorgestrel (Mirena) 1 device intrauterine ONCE 1 12/10/24 History hydroxyzine pamoate 50 mg capsule 50 mg PO 4X/DAY PRN PRN Anxiety 08/21/23 12/10/24 Rx #90 caps citalopram 20 mg tablet 20 mg PO QDAY depression #30 tabs 12/10/24 12/10/24 Rx Is last menstrual period known: No Post menopausal: No Patient : No : No [facility] Medical History Factor 5 Leiden mutation, heterozygous Anxiety and depression Family History Mother Factor 5 Leiden mutation, heterozygous Grandmother CVA (cerebral vascular accident) Thyroid disorder Grandmother COPD (chronic obstructive pulmonary disease) Heart disease Aunt Thyroid disorder Social History (Updated 12/10/24 @ 15:01 by Maryellen Lara) current occupational status: employed current occupation: Works for a [employer] Smoking Status: Never smoker alcohol intake: never substance use type: does not use caffeine: Yes what type of physical activity do you participate in: walking frequency: 1-2 times per week seatbelt use: always do you feel safe at home: Yes additional social history: Boyfriend - Obed History 1 Elective abortions Hx Para 1 Spontaneous abortions Hx # Term Pregnancies Ectopic pregnancies Hx # Pregnancies Multiple births # of living children 1 Past Pregnancies Del. Date Name GA/Weeks Outcome Route Bth Weight Infant Gen Labor Lgth Anesthesia Del Locatn Provider FOB 01/19/18 Demetri 40 live - full term vacuum Male epi dural [facility] Delivery Date: 01/19/18 Last Updated by: Magda Holloway Preeclampsia, 4th degree laceration 2nd degree episiotomy, VAVD HPI Encounter for routine gynecological examination Details: ALBARO HO is a 29 year old who presents for annual exam. Last PAP: 08/13/2022 - normal History of abnormal PAP: Last mammogram: not due History of abnormal mammogram: Colon cancer screening: not due Other preventative health care screenings: No PCP Female Reproductive History Menopausal Symptoms: No difficulty concentrating and No change in libido ROS Const Constitutional: Reports system reviewed and no additional complaints, except as documented Eyes Eyes: Reports system reviewed and no additional complaints, except as documented Cardio Card: Denies chest pain Resp Resp: Denies cough or dyspnea GI GI: Denies abdominal pain or change in bowel habits : Reports as per HPI; Denies nipple discharge Skin Skin/Breast: Denies changing lesions, breast mass, breast pain, breast skin changes or nipple discharge Psych Psych: Denies anxiety, change in libido, depression or difficulty concentrating Exam Const General: cooperative, healthy appearing, comfortable, no acute distress, well developed and well groomed HENMT Head: normal to inspection and normocephalic Ears: hearing grossly normal bilaterally and external ears normal Nose: external nose normal Face and sinus: normal facial exam Neck Neck: normal visual inspection, full ROM and no lymphadenopathy Thyroid: thyroid normal Chest Chest palpation & inspection: normal inspection of the chest Breast inspection: normal inspection of the breasts and normal inspection of theaxillae Breast palpation: normal palpation of the breasts, normal palpation of the axillae and no axillary lymphadenopathy Resp Effort & Inspection: normal respiratory effort GI Inspection: normal to inspection and non-distended Palpation: soft, no hepatosplenomegaly and no guarding General: bladder normal to palpation External Female Exam: normal external appearance, normal appearance of the urethra and no lesions Urethra: normal appearance of the urethra and normal palpation Speculum Exam - Vagina: normal appearance of the vagina and normal vaginal discharge Speculum Exam - Cervix: normal appearance of the cervix (strings seen 3-4 cm), no cervical discharge, no lesions and nontender Bimanual Exam- Vagina & Uterus: normal bimanual exam, uterine size normal, bladder normal to palpation, No tender, uterine mobility normal, consistency normal, non-tender and no cervical motion tenderness Bimanual Exam- Adnexa, other: normal adnexae, no masses and non-tender Skin General: no rashes or lesions noted Neuro General: patient alert, moves all extremities and no focal motor deficits Extrem General: normal to inspection and no pedal edema Psych Appearance: grossly normal Mental Status: mental status grossly normal Affect: normal affect Speech and Movement: speech and movement normal Attitude: cooperative Coding Level of Care Code Off vis,est,prev 18-39yrs Diagnoses Encounter for gynecological examination without abnormal finding Z01.419 Gynecological examination findings: abnormal findings ABSENT Assessment and Plan Assessment and Plan (1) Encounter for routine gynecological examination: Qualifiers: Gynecological examination findings: abnormal findings ABSENT Qualified Code(s): Z01.419 - Encounter for gynecological examination (general) (routine) without abnormal findings Medications: Refilled citalopram 20 mg PO QDAY 30 tabs 12RF depression Plan Cervical cancer screening: pap up to date Breast cancer screening: clinical other health maintenance examination reviewed and orders placed if needed. Encouraged maintenance of a healthy weight and active lifestyle and handout given. Annual exam handout including recommendations for good health guidelines, Calcium/vitamin D recommendations, and basic screening information given. Problem list up to date, see problem list details for any additional plan information. Follow up in one year for annual health maintenance exam or sooner if needed. 12/10/24 1511 <Electronically signed by Leidy bermudez MD> Date _ Leidy Morris MD Cosigner Signature: Date (if applicable) CC: ~ [facility] Work Phone: [phone]) 808-422204-04-2023 NotePap Smear Specimen AdequacyApril 2022 3:39pmComment.Satisfactory for evaluation. Endocervical and/or squamous metaplasticcells (endocervical component)are present.[facility] INTER[facility]ACED A#[id number] Mccullough-Hyde Memorial HospitalComment on above:Satisfactory for evaluation. Endocervical and/or squamous metaplasticcells (endocervical component)are present.06-19-2021 NotePap Smear Specimen AdequacyFebruary 2021 6:12pmCommentSatisfactory for evaluation. Endocervical and/or squamous metaplasticcells (endocervical component)are present.[facility] INTER[facility]ED A#[id number] [facility] Work Phone: Comment on above:Satisfactory for evaluation. Endocervical and/or squamous metaplasticcells (endocervical component)are present.09-06-2020 NoteHNO ID: [id number] Author: Erin Persaud APRN.MANAGER POWER Service: ? Author Type: Nurse Practitioner Type: Progress Notes Filed: 09/06/2020 7:54 PM Note Text: September 06, 2020 Subjective Chief Complaint: Eye Problem (Patient states left eye is iching and burning started 3 days ago, Has had eye infections before in the left eye, Tried OTC eye drops) HPI: Albaro Ho is a 25 year old female who presents today for a 3 day history of left eye irritation. Patient states she's not had any injury or trauma to the eye, describes pain as itching and burning, states discomfort seems worse when she closes her eye. Denies any drainage or eye discharge. Patient states she's tried over the counter ibuprofen for discomfort and states relief noted. States she's also tried over the counter eye drops and states eye drops worsened the pain and irritation. Denies any discomfort or redness to her right eye, denies any blurred or double vision. PAST MEDICAL HISTORY Diagnosis Date - Anxiety state childhood - Depressive disorder, not elsewhere classified childhood - Heterozygous factor V Leiden mutation (HCC) 11/20/2015 PAST SURGICAL HISTORY Procedure Laterality Date - NONE FAMILY HISTORY Problem Relation Age of Onset - other (Factor V Leiden) Mother 42 Social History Tobacco Use - Smoking status: Never Smoker - Smokeless tobacco: Never Used Vaping Use - Vaping Use: Never used Substance Use Topics - Alcohol use: Yes Comment: occ. - Drug use: No ALLERGIES No Known Allergies There is no immunization history on file for this patient. Current Medications: citalopram (CELEXA) 20 mg tablet TAKE 1 TABLET BY MOUTH DAILY for depression hydrOXYzine pamoate (VISTARIL) 50 mg capsule TAKE 1 CAPSULE BY MOUTH FOUR TIMES DAILY NEEDED FOR ANXIETY citalopram (CELEXA) 20 mg tablet TAKE 1 TABLET BY MOUTH DAILY for depression trimethoprim-polymyxin eye drops (POLYTRIM) ophthalmic solution Use 1 Drop in the left eye every 6 hours for 5 days. Review of Systems Constitutional: Negative for chills, fever and weight loss. HENT: Negative. Negative for congestion and sore throat. Eyes: Positive for pain and redness. Negative for blurred vision, double vision, photophobia and discharge. Respiratory: Negative. Cardiovascular: Negative. Gastrointestinal: Negative. Genitourinary: Negative. Musculoskeletal: Negative. Skin: Positive for itching (To outside of left eye). Neurological: Negative. Endo/Heme/Allergies: Negative. Psychiatric/Behavioral: Negative. Objective BP 105/73 Pulse 92 Temp 98.3 Resp 16 Wt 230 lb (104.3kg) SpO2 98% Physical Exam Vitals reviewed. Constitutional: General: She is not in acute distress. Appearance: Normal appearance. She is not ill-appearing or toxic-appearing. HENT: Head: Normocephalic and atraumatic. Nose: Nose normal. Mouth/Throat: Mouth: Mucous membranes are moist. Pharynx: Oropharynx is clear. Eyes: General: No scleral icterus. Right eye: No discharge. Left eye: No discharge. Extraocular Movements: Extraocular movements intact. Conjunctiva/sclera: Conjunctivae normal. Pupils: Pupils are equal, round, and reactive to light. Comments: Localized light pink erythema noted to the skin of the outer canthus of the left eye. No erythema to the conjunctiva or sclera. Pupils 3mm PERRLA bilaterally. Fluorescein staining performed to left eye, no corneal abrasion or foreign body visualized. Cardiovascular: Heart sounds: Normal heart sounds. Pulmonary: Effort: Pulmonary effort is normal. Musculoskeletal: Cervical back: Normal range of motion and neck supple. Skin: General: Skin is warm and dry. Neurological: Mental Status: She is alert and oriented to person, place, and time. Psychiatric: Mood and Affect: Mood normal. ASSESSMENT/PLAN: 1. Irritation of left eye - ICD9: 379.99, ICD10: H57.89 - POLYMYXIN B SULFATE 10,000 UNIT-TRIMETHOPRIM 1 MG/ML EYE DROPS Use antibiotic drops as prescribed. Wash your hands well before touching eyes or putting in eye drops. Ok for a warm compress to your eye 2-3 times per day as needed. Keep the skin to your face and around your eyes clean and dry. Pat dry and do not rub or scratch your eye. I recommend over the counter Ibuprofen as directed as needed for discomfort. Do not use any other eye drops or ointments in your eyes. Follow up with your primary care provider or an eye doctor in 3-5 days if symptoms do not improve, sooner if symptoms worsen. Go to the Emergency department for any changes in vision. Deepika Milton APN-student TEACHING PROVIDER (Physician/PA/CROSSING TENDER) NOTE OF PERSONAL INVOLVEMENT IN CARE: I have personally seen and examined the patient and performed the medical decision-making components. I have reviewed the Advanced Practice Registered Nurse (CROSSING TENDER) Student's documentation and verified the findings in the note as written. Signature: (more content not included)...[facility] Diagnosis Onset Date Resolution Status Anxiety and depression acute [facility] Work Phone: Evaluation note* Diagnosis Onset Date Resolution Status Anxiety and depression acute ASCUS with positive high risk HPV cervical acute Factor V Leiden mutation affecting acute Encounter for routine gynecological examination noneactive [facility] Work Phone: Evaluation note* Diagnosis Onset Date Resolution Status Possible exposure to STD non eactive Vaginal burning noneactive [facility] Work Phone: Evaluation note* Diagnosis Onset Date Resolution Status Encounter for routine gynecological examination noneactive [facility] Work Phone: Evaluation note* Diagnosis Onset Date Resolution Status Admit Date Encounter for routine gynecological examination noneactive December 10, 2024 2:54pm [facility] Work Phone: Instructions* Name Dates Details Instructions not documented [facility] Work Phone: Reason for referral (narrative)No reason for referral information availableSharp Grossmont Hospital Work Phone: Summary Purpose Family History Mother Name Dates Details No pertinent family history( V49.89, Z78.9) Status:Active Father Name Dates Details No pertinent family history( V49.89, Z78.9) Status:Active Relationship Condition Age at Onset Recorded Date/T jose mother Heterozygous factor V Leiden mutation Unk nown Relationship Condition Age at Onset Recorded Date/T jose mother Heterozygous factor V Leiden mutation Unk nown grandmother Cerebrovascular accident (CVA) Unknown Disorder of thyroid Unknown grandmother Chronic obstructive pulmonary disease Unk nown Cardiac disease Unknown aunt Disorder of thyroid Unknown Advance Directives Advance Directive Response Recorded Date/ Time Living Will No January 19, 2018 11:38am Power of Machine Cloth Examiner No January 11:38am Advance Directive Response Recorded Date/ Time Living Will No January 19, 2018 11:38am Do you have a Healthcare Power of Machine Cloth Examiner? No January 19, 2018 11:38am Chief Complaint and Reason for Visit Chief Complaint Annual (CHILD CARE COOK) EORDER 3M FU Reason for Visit Anxiety and depressi on Chief Complaint Annual (CHILD CARE COOK) Reason for Visit Anxiety and depressi on ASCUS with positive high risk HPV cervical Factor V Leiden mutation affecting Encounter for routine gynecological examination Chief Complaint vaginal burning & it lisbeth Reason for Visit Possible exposure to STD Vaginal burning Chief Complaint Annual (CHILD CARE COOK) Reason for Visit Encounter for routin e gynecological examination Chief Complaint Admit Date Annual (CHILD CARE COOK) December 10, 2024 2:5 4pm Reason for Visit Admit Date Encounter for routine gynecological exam ination December 10, 2024 2:54pm Additional Source Comments INFORMATION SOURCE (unrecogn ized section and content) DATE CREATED AUTHOR 12/08/2017 [facility] DATE CREATED AUTHOR AUTHOR'S ORGANIZ ATION 04/19/2018 [facility] DATE CREATED AUTHOR AUTHOR'S ORGANIZ ATION 11/27/2019 [facility] DATE CREATED AUTHOR AUTHOR'S ORGANIZ ATION 06/08/2021 [facility] DATE CREATED AUTHOR AUTHOR'S ORGANIZ ATION 07/13/2021 [facility] ([place] DATE CREATED AUTHOR AUTHOR'S ORGANIZ ATION 05/18/2023 [facility] DATE CREATED AUTHOR AUTHOR'S ORGANIZ ATION 08/25/2024 [facility] Goals (unrecognized section and content) Goals may be documented in a n alternate sectionGoals may be documented in an alternate sectionGoals may be documented in an alternate sectionGoals may be documented in an alternate sectionGoals may be documented in an alternate section Care Teams (unrecognized sec tion and content) Team Status: Active Member Role Status Dates No Primary Care Physician Primary Care Provider Active Team Status: Inactive Member Role Status Dates Dr. Leidy Morris MD Attending Provider Active No Primary Care Physician Primary Care Provider, Refer ring Provider Active Team Status: Inactive Member Role Status Dates No Primary Care Physician Primary Care Provider Active Maryellen Castle ROUND CORNER CUTTER OPERATOR, ROUND CORNER CUTTER OPERATOR-C Attending Provider, Referring Provider Active Team Status: Inactive Member Role Status Dates No Primary Care Physician Primary Care Provider, Refer ring Provider Active Maryellen Castle ROUND CORNER CUTTER OPERATOR, ROUND CORNER CUTTER OPERATOR-C Attending Provider Active Team Status: Inactive Member Role Status Dates No Primary Care Physician Primary Care Provider, Refer ring Provider Active Dr. Leidy Morris MD Attending Provider Active Team Status: Inactive Member Role Status Dates No Primary Care Physician Primary Care Provider Active Dr. Leidy Morris MD Attending Provider Active Team Status: Active Member Role/Relationship Status Dates No Primary Care Physician Primary Care Provider Active Team Status: Inactive Member Role/Relationship Status Dates No Primary Care Physician Primary Care Provider Active Start: December 10, 2024 End: December 10, 2024 No Primary Care Physician Referring Provider Active Start: December 10, 2024 End: December 10, 2024 Dr. Leidy Morris MD Attending Provider Active Start: December 10, 2024 End: December 10, 2024 FOR RECORDS PERTAINING TO PATIENTS WHO ARE OR HAVE BEEN ENROLLED IN A CHEMICAL DEPENDENCY/SUBSTANCEABUSE PROGRAM, SOME INFORMATION MAY BE OMITTED. This clinical summary was aggregated from multiple sources. Caution should be exercised in using it in the provision of clinical care. This summary normalizes information from multiple sources, and as a consequence, information in this document may materially change the coding, format and clinical context of patient data. In addition, data may be omitted in some cases. CLINICAL DECISIONS SHOULD BE BASED ON THE PRIMARY CLINICAL RECORDS. [employer] provides no warranty or guarantee of the accuracy or completeness of information in this document.
[2024-12-17 11:08] LABS: HPV APTIMA, High Risk Positive (Negative)
== END | disposition home or self-care (01) ==
LOC: LABSPEC 15:43
PROVIDERS: Referring Provider Obstetrics & Gynecology; Visit Provider Obstetrics & Gynecology
DX: Z12.4 Encounter for screening for malignant neoplasm of cervix (principal); R87.610 Atypical squamous cells of undetermined significance on cytologic smear of cervix (ASC-US); R87.810 Cervical high risk human papillomavirus (HPV) DNA test positive
CPT/HCPCS: 87624; 88175; G0145

== ENCOUNTER → 2025-03-07 | Outpatient (CLI) | payer OTHER, SELFPAY | END | disposition home or self-care (01) | LOC: BWCLAB 16:08 | PROVIDERS: Visit Provider Obstetrics & Gynecology | DX: R87.810 Cervical high risk human papillomavirus (HPV) DNA test positive (principal) | CPT/HCPCS: 88305 ==

== ENCOUNTER 2025-04-15 06:58 | Day surgery (SDC) | payer OTHER, SELFPAY ==
[2025-04-12 13:13] LABS: Hematocrit 40.6 % (37-47); Hemoglobin 13.5 g/dL (12.0-15.0); Mean Corp Hgb Conc 33.3 g/dL (32-36); Mean Corpuscular Volume 85.8 fL (81-99); Mean Platelet Vol. 8.8 fl (6.2-12.0); Platelet Count 363 K/mm3 (150-450); RBC Distribution Width CV 11.9 % (11.6-14.6); RBC Distribution Width SD 37.3 fl (35.1-43.9); Red Blood Count 4.73 M/mm3 (4.2-5.4); White Blood Count 12.5 K/mm3 (4.4-11.0)
[2025-04-15] VITALS (9 sets, daily range): BP systolic 107–136; BP diastolic 62–94; PULSE 78–91; RESP 12–20; TEMP 36.2–36.6; O2SAT 96–100; BMI 48.1
--- OUTSIDE RECORDS SUMMARY | 2025-04-15 07:10 | XMS RPT_ITS | CCD ---
Author Organization [facility] Care Team Providers Care Nursing Service Director Name Role Phone Anita Park LPN Unavailable Unavailab Anita Grande LPN Unavailable Unavailab DIANNA Davison Unavailable Unavailable LEIDY MORRIS Unavailable Unavailosmani e NO PRIMARY CAREMD Unavailable Unavailable Sara Camarillo Unavailable Unavailable Dr. Leidy Morris Attending Provider [phone] Care Physician, No Primary Primary Care Provider Unavailable Care Physician, No Primary Referring Provider Un available Dr. Leidy Morris Attending Provider [phone] Care Physician, No Primary Primary Care Provider Unavailable Care Physician, No Primary Referring Provider Un available Care Physician, No Primary Primary Care Provider Unavailable Care Physician, No Primary Referring Provider Un available Tin ALICEA NP-C Maryellen Attending Provider [phone] ALEE NEVAREZ Referring Unavailable Care Physician, No Primary Primary Care Provider Unavailable Care Physician, No Primary Referring Provider Un available Dr. Leidy Morris Attending Provider [phone] Care Physician, No Primary Primary Care Provider Unavailable Care Physician, No Primary Referring Provider Un available Dr. Leidy Morris MD Attending Provider [phone] Dr. Leidy Morris MD Referring Provider [phone] Care Physician, No Primary Primary Care Physicia n Unavailable Dr. Leidy Morris MD Attending Physician Tin FILLING MACHINE TENDER-CMaryellen Attending Physician [phone] Leidy Morris Attending Unavailable Care Physician, No Primary Referring Unava ilable Care Physician, No Primary Primary Care Unava ilable Leidy Morris Attending Unavailable Care Physician, No Primary Referring Unava ilable Care Physician, No Primary Primary Care Unava ilable Leidy Morris Attending Unavailable Care Physician, No Primary Referring Unava ilable Care Physician, No Primary Primary Care Unava ilable Marija, Leidy Attending Unavailable Care Physician, No Primary Primary Care Unava ilable Care Physician, No Primary Referring Unava ilable Marija, Leidy Attending Unavailable Care Physician, No Primary Primary Care Unava ilable Care Physician, No Primary Primary Care Unava ilable Leidy Morris Attending Unavailable Marija, Leidy Referring Unavailable Tin FILLING MACHINE TENDER, Maryellen Attending Unavailable Care Physician, No Primary Referring Unava ilable Care Physician, No Primary Primary Care Unava ilable Allergies Allergy Classification Reported Allergen(s) Allergy Type Date of Onset Reaction(s) Facility (1 source) ALLERGIES NOT ON FILE; Translations: [ALLERGIES NOT ON FILE] Propensity to adverse reactions (disorder) [facility] 2 Repository Medications Completed/Discontinued Medications Medication Drug Class(es) Dates Sig (Normalized) Sig (Original) acetaminophen 325 mg / oxyCODONE hydrochloride 5 mg oral tablet (14 sources) Opioid Agonist Start: 01-21-2018 End: 01-29-2018 Oxycodone-Acetaminoph en 5-325 mg tablet Discontinued 1 - 2 {tbl} PO EVERY 4 HOURS NEEDED as needed for Moderate-Severe pain 10 January 22, 2018 January 28, 2018 12:00am January 29, 2018 12:07am Other acute postprocedural pain Start: 01-21-2018 End: 01-29-2018 take 1 tablet by mouth every four hours as needed Oxycodone-Acetaminophen Discontinued 1 - 2 TABLET PO EVERY 4 HOURS NEEDED 02 15January 22, 2018 January 29, 2018 12:07am azithromycin 500 mg oral tablet (7 sources) Macrolide Antimicrobial Start: 06-23-2021 End: 10-04-2021 [...] . ROUTE .MEDSUPPLY 1 December 30, 2017 12:00am January 27, 2020 11:20am As directed Breast Pump device (3 sources) Start: 12-30-2017 End: 01-27-2020 Breast Pump device Discontinued 0 .ROUTE .MEDSUPPLY 1 0 December 30, 2017 12:00am January 27, 2020 11:20am As directed cephalexin 500 mg oral capsule (7 sources) Cephalosporin Antibacterial Start: 11-20-2017 End: 11-30-2017 take 1 capsule by mouth three times daily Cephalexin (Keflex) 500 mg capsule Discontinued 500 mg PO THREE TIMES A DAY 30 10 0 November 20, 2017 12:00am November 29, 2017 12:00am November 30, 2017 12:07am space evenly during waking hours citalopram 20 mg oral tablet (20 sources) Serotonin Reuptake Inhibitor Start: 08-21-2023 End: 12-10-2024 take 1 tablet by mouth once daily Citalopram 20 mg tablet Discontinued 20 mg PO daily 30 September 10, 2024 7:45am December 10, 2024 3:08pm depression Start: 10-04-2021 End: 08-21-2023 take 1 tablet by mouth once daily Citalopram 40 mg tablet Discontinued 40 mg PO daily 30 August 13, 2022 12:18pm August 21, 2023 4:00pm depression Start: 07-03-2017 End: 10-04-2021 take 1 tablet by mouth once daily Citalopram 20 mg tablet Discontinued 20 mg PO daily 90 4 April 18, 2020 11:20am October 04, 2021 4:19pm depression docusate sodium 100 mg oral capsule (7 sources) Start: 01-21-2018 End: 01-27-2020 take 1 capsule by mouth twice daily Docusate Sodium 100 MG capsule Discontinued 100 mg PO TWICE A DAY 60 3 January 21, 2018 12:00am January 27, 2020 11:19am 0.4 ml enoxaparin sodium 100 mg/ml prefilled syringe (7 sources) Low Molecular Weight Heparin Start: 01-21-2018 End: 01-27-2020 inject 40 mg by subcutaneous injection once daily Enoxaparin 40 MG/0.4 ML syringe Discontinued 40 mg SQ DAILY 14 45 2 January 21, 2018 12:00am January 27, 2020 11:19am fluconazole 150 mg oral tablet (5 sources) Azole Antifungal Start: 12-29-2022 End: 08-21-2023 [...] 22, 2019 10:57am January 27, 2020 11:36am levonorgestrel 0.350919 mg/hr intrauterine system (8 sources) Progestin, Progestin-containi ng Intrauterine Device Start: 02-15-2020 End: 02-07-2025 Levonorgestrel (Mirena) 20 mcg/24 hours (5 yrs) 52 mg intrauterine device Discontinued 1 NMA INTRA-UTER ONCE February 15, 2020 12:00am February 07, 2025 9:16am as a single dose Start: 02-15-2020 levonorgestrel 20 mcg/24 hours (5 yrs) 52 mg intrauterine device Active 1 DEVICE INTRA-UTER ONCE February 15, 2020 12:00am as a single dose Start: 03-02-2018 End: 03-02-2018 levonorgestrel 20 mcg/24 indu rs (6 yrs) 52 mg intrauterine device Discontinued 1 INSERT INTRA-UTER ONCE March 02, 2018 1:36pm March 02, 2018 1:57pm No Reported Medications (1 source) No Reported Medi cations Refills: 0 Active Prenat.Vits,Kvng,Min-Iron- Folic ( Vitamin) tablet (7 sources) Start: 07-03-2017 End: 01-27-2020 take 1 tablet by mouth once daily Prenat.Vits,Kvng,Min-Iron- Folic ( Vitamin) tablet Discontinued 1 TABLET PO daily July 03, 2017 4:24pm January 27, 2020 11:20am Start: 07-03-2017 End: 01-27-2020 Prenat.Vits,Kvng,Bgq-Fjlq-Oyh ic ( Vitamin) tablet Discontinued 1 {tbl} PO daily July 03, 2017 1:00am January 27, 2020 11:20am Start: 07-03-2017 End: 01-27-2020 take 1 tablet by mouth once daily Prenat.Vits,Kvng,Nuj-Rvvl-Sasmh ( Vitamin) tablet Discontinued 1 TABLET PO [...] Problem Date Documented Date Episodic/Chronic Anxiety disorders (9 sources) Mixed anxiety and depressive disorder; Translations: [Anxiety disorder, unspecified] Chronic Comment on above: celexa increased to 40mg, encouraged counseling. Cancer of cervix (10 sources) Atypical squamous cells of undetermined significance on cervical Papanicolaou smear; Translations: [Atypical squamous cells of undetermined significance on cytologic smear of cervix (ASC-US)] Onset: 03-07-2025 08-13-2022 Episodic Comment on above: repeat pap negative 2022 initial 2019. repeat pap negative 2021, 2022; 2024: ASCUS +HPV: rpt colp Coagulation and hemorrhagic disorders (1 source) Heterozygous Factor V Leiden mutation; Translations: [Primary hypercoagulable state] Chronic Contraceptive and procreative management (3 sources) Patient encounter status; Translations: [Encounter for removal of intrauterine contraceptive device] Onset: 02-07-2025 02-07-2025 Episodic Early or threatened labor (7 sources) Threatened premature labor - not delivered [...] disease of breast] Episodic Other complications of (7 sources) Complication of , childbirth and/or the [...] Episodic Other nutritional; endocrine; and metabolic disorders (7 sources) Body mass index 40+ - severely obese; Translations: [Body mass index (BMI) 40.0-44.9, adult] 01-21-2018 Chronic Comment on above: 1st trimester glucol a, recommend weekly nsts and growth US 32 weeks until delivery Other screening for suspected conditions (not mental disorders or infectious disease) (3 sources) Encounter for screening for respiratory disorder NEC; Translations: [Encounter for screening for malignant neoplasm of cervix] Onset: 05-14-2023 Episodic Sexually transmitted infections (not HIV or hepatitis) (1 source) Cervical high risk human papillomavirus (HPV) DNA test positive; Translations: [Cervical high risk human papillomavirus (HPV) DNA test positive] Onset: 03-14-2025 Episodic Short gestation; low weight; and growth retardation (3 sources) growth abnormality 12-28-2017 Episodic Comment on above: [...] Test Name Value Interpretation Reference Range Facility Embedded Systems Designer Office Visit Reporton 03-07-2025 Embedded Systems Designer Office Visit Report [facility] [address], [address] [place] [address] OFFICE VISIT Date of Service: 03/07/25 MR#: [id number] Acct: [id number] Name: ALBARO HO Rep #: [id number] : 1995 Provider: Dr. Leidy quintanilla MD Age/Sex: 29/F Location: [facility] Status: Signed Intake Vital Signs 02/07/25 09:19 03/07/25 13:59 Height 5 ft 0.75 in 5 ft 0.75 in Weight: 247 lb 7 oz BMI 47.1 BP 120/83 H Intake Visit Reasons: Colposcopy Chief Complaint: colposcopy Talent Scout Required: No Is patient in pain?: No Allergies No Known Allergies Allergy (Verified 03/07/25 14:04) Medications ???Medication ???Instructions ???Recorded ???Confirmed ???Type hydroxyzine pamoate 50 mg capsule 50 mg PO 4X/DAY PRN PRN Anxiety 0 08/21/23 03/07/25 Rx #90 caps citalopram 20 mg tablet 20 mg PO QDAY depression #30 tabs 12/10/24 03/07/25 Rx Is last menstrual period known: No Post menopausal: No Patient : No : No PFSH PFSH Medical History Factor 5 Leiden mutation, heterozygous Anxiety and depression Family History Mother Factor 5 Leiden mutation, heterozygous Grandmother CVA (cerebral vascular accident) Thyroid disorder Grandmother COPD (chronic obstructive pulmonary disease) Heart disease Aunt Thyroid disorder Social History current occupational status: employed 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 Smoking Status: Never smoker alcohol intake: never [...] 40 live - full term vacuum Male epidural [facility] SE M Delivery Date: 01/19/18 Last Updated by: Magda Holloway Preeclampsia, 4th degree laceration 2nd degree episiotomy, VAVD HPI Colposcopy Details: ALBARO HO is a 29 year old who presents for colposocpy ascus hpv pos ROS Const Constitutional: Reports system reviewed and no additional complaints, except as documented; Denies chills, fever(s), weight gain or weight loss GI GI: Reports as per HPI; Denies abdominal pain, bloating, constipation, cramping, nausea or vomiting : Reports as per HPI; Denies urinary frequency, urinary incontinence, urinary urgency, vaginal discharge or vaginal dryness Exam Const General: cooperative, healthy appearing, comfortable and well developed Orientation: alert HENMT Head: normal to inspection Resp Effort Inspection: normal respiratory effort GI Inspection: normal to inspection and non-distended Palpation: soft, no hepatosplenomegaly and no guarding External Female Exam: normal external appearance and normal appearance of the urethra Urethra: normal appearance of the urethra Speculum Exam - Vagina: normal appearance of the vagina, normal vaginal discharge and no lesions Office Procedures Colposcopy Colposcopy Reason for colposcopy: ASCUS Pap/DAVID history: previous ASCUS pap Consent Signed: Yes Time out performed: Yes Time: 14:15 Acetowhite epithelium (cervix): 2 o'clock and 5 o'clock Punctation (cervix): none Mosaicism (cervix): none Abnormal vessels (cervix): none Biopsies (cervix): 2 o'clock and 5 o'clock Acetowhite epithelium (vagina): none Punctation (vagina): none Mosaicism (vagina): none Biopsies (vagina): none Cervix+upper/adj vag+bx cervix: Yes biopsy Details: adequate colposcopy dilute acetic acid applied and entire SCJ visualized with above noted findings seen. patient tolerated procedure well without complications. Results POC Urine Office , Urine Negative Last Edit by Maryellen Lara on 03/07/25 14:06 Coding Level of Care Code Attention Metal Cleaner Diagnoses ASCUS with positive high risk HPV cervical R87.610; R87.810 CPT Codes Colposcopy - Cervix+upper/adj vag+bx cervix: Yes (71978) Assessment and Plan Assessment and Plan (1) ASCUS with positive high risk HPV cervical: Status: Acute Comment: initial 2019. repeat pap negative 2021, 2022; 2024: ASCUS +HPV: rpt colp Orders: Orders Colposcopy Today R87.610 - Atypical squamous cells of undetermined significance on cytologic smear of cer (more content not included)... Normal [facility] Specimen Level Carmen 03-07-2025 Surgery Specimen Level IV Patient Age/Sex Location Account [facility]ending Phys[id number] eLidy Morris MD Specimen: [id number] Received: 03/07/25 Status: TAJ Ryan Num: [id number] Spec Type: CERV Subm Dr: Dr. Leidy Morris MD HEADER OPERATION: Colposcopy PRE-OP DIAGNOSIS: ASCUS with positive high risk HPV cervical TISSUE SUBMITTED: A- 2o'clock, B- 5o'clock MICROSCOPIC DIAGNOSIS A. 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 B. Cervix, 5 o'clock, biopsy: - Squamous metaplasia with mild atypia. MICROSCOPIC DESCRIPTION Slides are reviewed. GROSS DESCRIPTION Received in 2 formalin containers labeled with the patient's name and date of . Designated as: A. 2 o'clock is a minimal amount of mucoid material and petersen tissue fragments, 1.0 x 0.8 x 0.1 cm in aggregate. Entirely submitted in 1 cassette. B. 5 o'clock are numerous flecks of petersen apparent tissue, 0.9 x 0.3 x <0.1 cm in aggregate. Entirely submitted in 1 cassette. Entirety of the specimen may not survive processing. MS 03/08/2025PT:[id number] Patient Age/Sex Location Account Attending Physician JONOALBARO JENNIFER BWCLAB [id number] Dr. Leidy Morris MD Signed (signature on file) Dr. Carly Conway MD 03/18/25 1528 Normal [place] Comment on above: Performed By: #### P SUIV #### [facility] [address] [place], [place] [address]alycia Roque [place], [place], [address] Embedded Systems Designer Office Visit Reporton 02-07-2025 Embedded Systems Designer Office Visit Report [facility] [address], [address] [place] [address] OFFICE VISIT Date of Service: 02/07/25 MR#: [id number] Acct: [id number] Name: ALBARO HO Rep #: [id number] : 1995 Provider: CECY ashraf Age/Sex: 29/F Location: [facility] Status: Signed Intake Vital Signs 12/10/24 14:56 12/10/24 15:16 02/07/25 09:16 02/07/25 09:19 Height 5 ft 0.75 in 5 ft 0.75 in 5 ft 0.75 in 5 ft 0.75 in Weight: 243 lb 6 oz 240 lb 3 oz BMI 46.3 45.7 BP 116/77 115/80 Intake Visit Reasons: IUD REMOVAL Chief Complaint: IUD removal Talent Scout Required: No Is patient in pain?: No Allergies No Known Allergies Allergy (Verified 02/07/25 09:21) Medications ???Medication ???Instructions ???Recorded ???Confirmed ???Type hydroxyzine pamoate 50 mg capsule 50 mg PO 4X/DAY PRN PRN Anxiety 0 08/21/23 02/07/25 Rx #90 caps citalopram 20 mg tablet 20 mg PO QDAY depression #30 tabs 12/10/24 02/07/25 Rx Is last menstrual period known: No Post menopausal: No Patient : No : No PFSH Medical History Factor 5 Leiden mutation, heterozygous Anxiety and depression Family History Mother Factor 5 Leiden mutation, heterozygous Grandmother CVA (cerebral vascular accident) Thyroid disorder Grandmother COPD (chronic obstructive pulmonary disease) Heart disease Aunt Thyroid disorder Social History current occupational status: employed 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 Partner with low sperm count. If happens they are ok with that. She did miss her appt for colp and will reschedule that today History 1 Elective abortions Hx Para 1 Spontaneous abortions Hx # Term Pregnancies Ectopic pregnancies Hx # Pregnancies Multiple births # of living children 1 Past Pregnancies Del. Date Name GA/Weeks Outcome Route Bth Weight Gen Labor Lgth Anesthesia Del Locatn Provider FOB 01/19/18 Demetri 40 live - full term vacuum Male epidural [facility] SE M Delivery Date: 01/19/18 Last Updated by: Magda Holloway Preeclampsia, 4th degree laceration 2nd degree episiotomy, VAVD ROS Const Constitutional: Reports system reviewed and no additional complaints, except as documented Eyes Eyes: Reports system reviewed and no additional complaints, except as documented GI GI: Denies abdominal pain or change in bowel habits : Reports as per HPI Exam Const General: cooperative and no acute distress Orientation: oriented x3 General: bladder normal to palpation External Female Exam: normal external appearance and normal appearance of the urethra Urethra: normal appearance of the urethra Speculum Exam - Vagina: normal appearance of the vagina, normal vaginal discharge, no lesions and nontender Speculum Exam - Cervix: normal appearance of the cervix Bimanual Exam- Vagina Uterus: normal bimanual exam, uterine size normal, bladder normal to palpation, uterine shape normal, uterine mobility normal and non-tender Bimanual Exam- Adnexa, other: normal adnexae, no masses and non-tender Coding Level of Care Code Attention Metal Cleaner Diagnoses Encounter for IUD removal Z30.432 ASCUS with positive high risk HPV cervical R87.610; R87.810 Assessment and Plan Assessment and Plan (1) Encounter for IUD removal: (2) ASCUS with positive high risk HPV cervical: Status: Acute Comment: initial 2019. repeat pap negative 2021, 2022; 2024: ASCUS +HPV: rpt colp Orders: Orders IUD Removal Today Z30.432 - Encounter for removal of intrauterine contraceptive device Plan Condoms if wants to defer Start vitamin RTO colp 02/07/25927 Date Maryellen Castle NP FILLING MACHINE TENDER-C Cosigner Signature: Date (if applicable) CC: Normal [facility] PAP IG HPV APTIMA 16/18,45on 12-17-2024 ADEQ Comment Normal . [place] Comment on above: Order Comment: Speci men Comment: [id number] Specimen Comment: Source.............Cervix Specimen Comment: No. of containers..01 ThinPrep Vial Result Comment: Sati sfactory for evaluation. Endocervical and/or squamous metaplastic cells (endocervical component) are present. Performed By: #### L 7400.0280 #### [facility] [address] [place], [place], [address] COMM . Normal . [facility] Comment on above: Order Comment: Speci men Comment: [id number] Specimen Comment: Source.............Cervix Specimen Comment: No. of containers..01 ThinPrep Vial Performed By: #### L 7400.0280 #### [facility] [address] [place], [place], [address] COMMENT Comment Normal . [place] Comment on above: Order Comment: Speci men Comment: [id number] Specimen Comment: Source.............Cervix Specimen Comment: No. of containers..01 ThinPrep Vial Result Comment: This liquid based ThinPrep(R) pap test was screened with the use of an image guided system. Performed By: #### L 7400.0280 #### [facility] [address] [place], [address] DIAG Comment Abnormal . [facility] Comment on above: Order Comment: Speci men Comment: [id number] Specimen Comment: Source.............Cervix Specimen Comment: No. of containers..01 ThinPrep Vial Result Comment: EPIT HELIAL CELL ABNORMALITY. ATYPICAL SQUAMOUS CELLS OF UNDETERMINED SIGNIFICANCE (ASC-US). Performed By: #### L 7400.0280 #### [facility] [address] [place], [place], [address] HPV APTIMA, HR Positive Abnormal Negative [facility] Comment on above: Order Comment: Speci men Comment: [id number] Specimen Comment: Source.............Cervix Specimen Comment: No. of containers..01 ThinPrep Vial Result Comment: This nucleic acid amplification test detects fourteen high- risk HPV types (16,18,31,33,35,39,45,51,52,56,58,59,66,68) without differentiation. Performed By: #### L 7400.0280 #### [facility] [address] [place], [address] HPV Kristy Rfx Comment Normal . [facility] Comment on above: Order Comment: Speci men Comment: [id number] Specimen Comment: Source.............Cervix Specimen Comment: No. of containers..01 ThinPrep Vial Result Comment: Crit eria not met, HPV Genotype not performed. Performed at: - [facility] [id number] Supervising Fire Marshal: Gladys Scott MD, Phone: [phone] Performed at: [facility] [address] [place] [id number] Supervising Fire Marshal: Jose Alfredo Valiente MD, Phone: [phone] Performed at: = - [facility] [id number] Supervising Fire Marshal: Gladys Scott MD, Phone: [phone] Performed By: #### L 7400.0280 #### [facility] [address] [place], [place], [address] PAPSMR Comment Normal . [place] Comment on above: Order Comment: Speci men Comment: [id number] Specimen Comment: Source.............Cervix Specimen Comment: No. of containers..01 ThinPrep Vial Result Comment: The Pap smear is a screening test designed to aid in the detection of premalignant and malignant conditions of the uterine cervix. It is not a diagnostic procedure and should not be used as the sole means of detecting cervical cancer. Both false-positive and false-negative reports do occur. Performed By: #### L 7400.0280 #### [facility] [address] [place], [place], [id number] Path.prov.IDC-9 Comment Normal . [place] Comment on above: Order Comment: Speci men Comment: [id number] Specimen Comment: Source.............Cervix Specimen Comment: No. of containers..01 ThinPrep Vial Result Comment: R87. 610 Performed By: #### L 7400.0280 #### [facility] [address] [place], [place], [address] PERFORM Comment Normal . [facility] Comment on above: Order Comment: Speci men Comment: [id number] Specimen Comment: Source.............Cervix Specimen Comment: No. of containers..01 ThinPrep Vial Result Comment: Haily Sandra Paleontology Teacher (ASCP) Performed By: #### L 7400.0280 #### [facility] [address] [place], [place], [id number] RECOMM Comment Abnormal . [facility] Comment on above: Order Comment: Speci men Comment: [id number] Specimen Comment: Source.............Cervix Specimen Comment: No. of containers..01 ThinPrep Vial Result Comment: Sugg est follow up as clinically appropriate. Performed By: #### L 7400.0280 #### [facility] [address] [place], [place], [address] SIGN Comment Normal . [facility] Comment on above: Order Comment: Speci men Comment: [id number] Specimen Comment: Source.............Cervix Specimen Comment: No. of containers..01 ThinPrep Vial Result Comment: Destiny White MD, Pathologist Performed By: #### L 7400.0280 #### [facility] [address] [place], [place], [address] Cervical or vaginal specimen microscopic examination by liquid based cytology (reportOrdered By: Leidy Morris on 12-10-2024 Cytology report Cyto stain.thin prep Doc (Cvx/Vag) Comment . [facility] Comment on above: Criteria not met, HP V Genotype not performed.Performed at: - [address], [place] [id number] Director: Gladys Scott MD, Phone: [phone] at: [facility]to [id number] [place], [place] [id number] Director: Jose Alfredo Valiente MD, Phone: [phone] at: = - [facility], [place] [id number] Director: Gladys Scott MD, Phone: [phone] Cervical or vagninal specime n microscopic examination by cytology stain (reported asOrdered By: Leidy Morris on 12-10-2024 Cytology report Cyto stain Doc (Cvx/Vag) Comment . [facility] Comment on above: The Pap smear is a s creening test designed to aid in thedetection of premalignant and malignant conditions of theuterine cervix. It is not a diagnostic procedure andshould not be used as the sole means of detecting cervicalcancer. Both false-positive and false-negative reports dooccur. Detection in cervical specim en of any of human papilloma virus (HPV) 16, 18, 31, 33,Ordered By: Leidy Morris on 12-10-2024 HPV 16+18+31+33+35+39+45+5 1+52+56+58+59+66+68 DNA Probe+sig amp Ql (Cvx) Positive High Negative [place] Comment on above: This nucleic acid am plification test detects fourteen high- risk HPV types (16,18,31,33,35,39,45,51,52,56,58,59,66,68)without differentiation. Laboratory - CytologyOrdered By: Leidy Morris on 12-10-2024 Paleontology Teacher Cyto stain Nom (Cvx/Vag) [ID] Comment . [place] Comment on above: Ramona Sandra Cyto logist (ASCP) Pathologist Cyto stain Nom (Cvx/Vag) [ID] Comment . [place] Comment on above: Nazario White MD, Pa thologist Recommended follow-up Cyto stain Nom (Cvx/Vag) Comment High . [place] Comment on above: Suggest follow up as clinically appropriate. Laboratory - Miscellaneous t estsOrdered By: Leidy Morris on 12-10-2024 Service comment (Unsp spec) [Interp] . . [place] No Panel InformationOrdered By: Leidy Morris on 12-10-2024 Pap Smear Specimen Adequacy Comment . [place] Comment on above: Satisfactory for ángel luation. Endocervical and/or squamous metaplasticcells (endocervical component) are present. Pathology report final diagnosis Narrative Comment . [place] Comment on above: R87.610 Embedded Systems Designer Office Visit Reporton 12-10-2024 Embedded Systems Designer Office Visit Report [facility] [address], [address] [place] [address] OFFICE VISIT Date of Service: 12/10/24 MR#: [id number] Acct: [id number] Name: ALBARO HO Rep #: [id number] : 1995 Provider: Dr. 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) Talent Scout Required: No Is patient in pain?: No Allergies No Known Allergies Allergy (Verified 12/10/24 14:58) Medications ???Medication ???Instructions ???Recorded ???Confirmed ???Type levonorgestrel (Mirena) 1 device intrauterine ONCE 2 0 12/10/24 History hydroxyzine pamoate 50 mg capsule 50 mg PO 4X/DAY PRN PRN Anxiety 0 08/21/23 12/10/24 Rx #90 caps citalopram 20 mg tablet 20 mg PO QDAY depression #30 tabs 12/10/24 12/10/24 Rx Is last menstrual period known: No Post menopausal: No Patient : No : No [facility] Medical History Factor 5 Leiden mutation, heterozygous Anxiety and depression Family History Mother Factor 5 Leiden mutation, heterozygous Grandmother CVA (cerebral vascular accident) Thyroid disorder Grandmother COPD (chronic obstructive pulmonary disease) Heart disease Aunt Thyroid disorder Social History (Updated 12/10/24 @ 15:01 by Maryellen Lara) current occupational status: employed 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 Smoking Status: Never smoker alcohol intake: never [...] Date Name GA/Weeks Outcome Route Bth Weight Gen Labor Lgth Anesthesia Del Locatn Provider FOB 01/19/18 Demetri 40 live - full term vacuum Male epidural [facility] SE M Delivery Date: 01/19/18 Last Updated by: Magda [...] acute distress, well developed and well groomed HENME Head: normal to inspection and normocephalic Ears: hearing grossly normal bilaterally and external ears normal Nose: external nose normal Face and sinus: normal facial exam Neck Neck: normal visual inspection, full ROM and no lymphadenopathy Thyroid: thyroid normal Chest Chest palpation inspection: normal inspection of the chest Breast inspection: normal inspection of the breasts and normal inspection of the axillae Breast palpation: normal palpation of the breasts, normal palpation of the axillae and no axillary lymphadenopathy Resp Effort Inspection: normal respiratory effort GI Inspection: normal [...] no lesions and nontender Bimanual Exam- Vagina Uterus: normal bimanual exam, uterine size nor (more content not included)... Normal [place] Chlamydia trachomatis rRNA d etection by probe and target amplification methodOrdered By: Leidy Morris on 08-21-2023 C. trachomatis rRNA ROSEANN+probe Ql (Unsp spec) Negative Negative [place] Laboratory - Microbiology an d Antimicrobial susceptibilityOrdered By: Leidy Morris on 08-21-2023 N. gonorrhoeae DNA ROSEANN+probe Ql (Unsp spec) Negative Negative [place] Comment on above: Performed at: =[facility] [address] [id number] Director: Gladys Scott MD, Phone: [phone] No Panel Informationon 08-20 POC Trichomonas (Rapid) Negative [place] XR CHEST 1 VIEWon 05-14-2023 XR CHEST 1 VIEW Interpreted By: Luis Jaramillo, STUDY: XR CHEST 1 VIEW 05/14/2023 2:50 pm INDICATION: Signs/Symptoms:SCREENING FOR RESPIRATORY DISORDER NEC COMPARISON: None. ACCESSION NUMBER(S): [id number] ORDERING CLINICIAN: ALEE NEVAREZ TECHNIQUE: A single AP portable radiograph of the chest was obtained. FINDINGS: No focal infiltrate, pleural effusion or pneumothorax is identified. The cardiac silhouette is within normal limits for size. IMPRESSION: No focal infiltrate or pneumothorax is identified. MACRO: None. Signed by: Luis Mantilla 05/14/2023 3:16 PM Dictation workstation: [id number] [facility] Chlamydia trachomatis rRNA d etection by probe and target amplification methodOrdered By: Maryellen Castle on 12-25-2022 C. trachomatis rRNA ROSEANN+probe Ql (Unsp spec) Negative Negative [place] Gram stain for investigation of transfusion reactionOrdered By: Maryellen Castle on 12-25-2022 Microscopic observation Gram stain Nom (Unsp spec) [place] Laboratory - Microbiology an d Antimicrobial susceptibilityOrdered By: Maryellen Castle on 12-25-2022 N. gonorrhoeae DNA ROSEANN+probe Ql (Unsp spec) Negative Negative [place] Comment on above: Performed at: =[address] [id number] Director: Gladys Scott MD, Phone: [phone] No Panel Informationon 12-25 POC Bacterial Vaginitis (Rapid) Negative [place] POC Trichomonas (Rapid) Negative [place] Thin prep Papanicolaou smear with manual screeningOrdered By: Maryellen Castle on 12-25-2022 Genital Culture Presumptive C albicans [place] Cervical or vagninal specime n microscopic examination by cytology stain (reported asOrdered By: Dr. Morris on 08-13-2022 Cytology report Cyto stain Doc (Cvx/Vag) Comment . [place] Comment on above: The Pap smear is a s creening test designed to aid in thedetection of premalignant and malignant conditions of theuterine cervix. It is not a diagnostic procedure andshould not be used as the sole means of detecting cervicalcancer. Both false-positive and false-negative reports dooccur. Laboratory - CytologyOrdered By: Dr. Morris on 08-13-2022 Paleontology Teacher Cyto stain Nom (Cvx/Vag) [ID] Comment . [place] Comment on above: Justin Oneal , Line Staker (ASCP) Laboratory - Miscellaneous t estsOrdered By: Dr. Morris on 08-13-2022 Service comment (Unsp spec) [Interp] Comment . [place] Comment on above: This liquid based Th inPrep(R) pap test was screened withthe use of an image guided system. Service comment (Unsp spec) [Interp] . . [place] No Panel InformationOrdered By: Dr. Morris on 08-13-2022 Human Papillomavirus Screen Comment . [place] Comment on above: The HPV DNA reflex c jessika were not met with this specimenresult therefore, no HPV testing was performed.Performed at: [address] [id number] Director: Gladys Scott MD, Phone: [phone] Pathology report final diagnosis Narrative Comment . [place] Comment on above: NEGATIVE FOR INTRAEP ITHELIAL LESION OR MALIGNANCY.SHIFT IN MILES SUGGESTIVE OF BACTERIAL VAGINOSIS. Basophil percentageon 2021 C. trachomatis DNA ROSEANN+probe Ql (Unsp spec) Negative Negative [place] Work Phone: Neisseria gonorrhoeae detect ion by PCRon 10-04-2021 N. gonorrhoeae DNA ROSEANN+probe Ql (Cervical mucus) Negative Negative [place] Work Phone: .GFRon 06-29-2021 GFR >60 Normal [facility] ([place]) Comment on above: Result Comment: GFR Population [...] ANEU, CMP, TSH, FT4, VIDH, GFR #### [address] [address] GFR Non- >60 Normal [facility] ([place]) Comment on above: Result Comment: GFR Population [...] ANEU, CMP, TSH, FT4, VIDH, GFR #### [address] [address] CMPon 06-29-2021 Albumin Level 3.5 G/dL Normal 3.2-4.8 [facility] ([place]) Comment on above: Performed By: #### C BC, ADIFF, ANEU, CMP, TSH, FT4, VIDH, GFR #### [address] [address] Albumin/Globulin [Mass ratio] 1.0 {ratio} Normal 0.9-1.6 [facility] ([place]) Comment on above: Performed By: #### C BC, ADIFF, ANEU, CMP, TSH, FT4, VIDH, GFR #### [address] [address] ALP [Catalytic activity/Vol] 104 U/L Normal 38-126 [facility] ([place]) Comment on above: Performed By: #### C BC, ADIFF, ANEU, CMP, TSH, FT4, VIDH, GFR #### [address] [address] ALT [Catalytic activity/Vol] 15 U/L Normal 10-49 [facility] ([place]) Comment on above: Performed By: #### C BC, ADIFF, ANEU, CMP, TSH, FT4, VIDH, GFR #### [address] [address] AST [Catalytic activity/Vol] 22 U/L Normal 8-34 [facility] ([place]) Comment on above: Performed By: #### C BC, ADIFF, ANEU, CMP, TSH, FT4, VIDH, GFR #### [place] [id number] Bili Total 0.40 mg/dL Normal 0.20-1.20 [facility] ([place]) Comment on above: Result Comment: Use of this assay is not recommended for patients undergoing treatment with eltrombopag due to the potential for falsely elevated results. Performed By: #### C BC, ADIFF, ANEU, CMP, TSH, FT4, VIDH, GFR #### [place] [id number] BUN/Creatinine Ratio 19.7 ratio Normal 10.0-22.0 [facility] ([place]) Comment on above: Performed By: #### C BC, ADIFF, ANEU, CMP, TSH, FT4, VIDH, GFR #### [place] [id number] Calcium [Mass/Vol] 9.3 mg/dL Normal 8.7-10.4 [facility] ([place]) Comment on above: Result Comment: No te - New Reference Range in effect 19 Performed By: #### C BC, ADIFF, ANEU, CMP, TSH, FT4, VIDH, GFR #### [place] [id number] Chloride [Moles/Vol] 108 mmol/L Normal 98-110 [facility] ([place]) Comment on above: Performed By: #### C BC, ADIFF, ANEU, CMP, TSH, FT4, VIDH, GFR #### [address] [address] CO2 [Moles/Vol] 24 mmol/L Normal 22-32 [facility] ([place]) Comment on above: Performed By: #### C BC, ADIFF, ANEU, CMP, TSH, FT4, VIDH, GFR #### [address] [address] Creatinine [Mass/Vol] 0.71 mg/dL Normal 0.50-1.20 [facility] ([place]) Comment on above: Performed By: #### C BC, ADIFF, ANEU, CMP, TSH, FT4, VIDH, GFR #### [address] [address] Electrolyte Balance 8.0 mEq/L Normal 4.0-15.0 [facility] ([place]) Comment on above: Performed By: #### C BC, ADIFF, ANEU, CMP, TSH, FT4, VIDH, GFR #### [address] [address] Globulin 3.4 G/dL Normal 1.5-3.8 [facility] ([place]) Comment on above: Performed By: #### C BC, ADIFF, ANEU, CMP, TSH, FT4, VIDH, GFR #### [address] [address] Glucose [Mass/Vol] 88 mg/dL Normal 70-110 [facility] ([place]) Comment on above: Performed By: #### C BC, ADIFF, ANEU, CMP, TSH, FT4, VIDH, GFR #### [address] [address] Potassium [Moles/Vol] 4.4 mmol/L Normal 3.5-5.0 [facility] ([place]) Comment on above: Result Comment: Spec imen slightly hemolyzed. Performed By: #### C BC, ADIFF, ANEU, CMP, TSH, FT4, VIDH, GFR #### [address] [address] Sodium [Moles/Vol] 140 mmol/L Normal 136-145 [facility] ([place]) Comment on above: Performed By: #### C BC, ADIFF, ANEU, CMP, TSH, FT4, VIDH, GFR #### [address] [address] Total Protein 6.9 G/dL Normal 5.7-8.2 [facility] ([place]) Comment on above: Result Comment: No te - New Reference Range in effect 19 Performed By: #### C BC, ADIFF, ANEU, CMP, TSH, FT4, VIDH, GFR #### [place] [address] Urea nitrogen [Mass/Vol] 14.0 mg/dL Normal 8.0-22.0 [facility] ([place]) Comment on above: Performed By: #### C BC, ADIFF, ANEU, CMP, TSH, FT4, VIDH, GFR #### [place] [address] FT4on 06-29-2021 Free T4 1.08 mcg/dL Normal 0.89-1.76 [facility] ([place]) Comment on above: Result Comment: No te - New Reference Range in effect 19 Performed By: #### C BC, ADIFF, ANEU, CMP, TSH, FT4, VIDH, GFR #### [place] [address] TSHon 06-29-2021 TSH 2.835 mIU/mL Normal 0.550-4.780 [facility] ([place]) Comment on above: Result Comment: No te - New Reference Range in effect 19 Performed By: #### C BC, ADIFF, ANEU, CMP, TSH, FT4, VIDH, GFR #### [address] [address] VIDHon 06-29-2021 Vit. D 25-Hydroxy 11.2 ng/mL Normal [facility] ([place]) Comment on above: Result Comment: Inte rpretive Values Based on Total 25(OH)D: Severe Deficiency <20 ng/mL Mild to Moderate Deficiency 20-30 ng/mL Optimum Levels 30-100 ng/mL Toxicity Possible >100 ng/mL Performed By: #### C BC, ADIFF, ANEU, CMP, TSH, FT4, VIDH, GFR #### [address] [address] .Auto Diffon 06-28-2021 Basophil, Absolute 0.10 10 3/mcL Normal 0.00-0.27 [facility] ([place]) Comment on above: Performed By: #### C BC, ADIFF, ANEU, CMP, TSH, FT4, VIDH, GFR #### [address] [address] Basophils/100 WBC (Bld) 0.7 % Normal 0.0-2.5 [facility] ([place]) Comment on above: Performed By: #### C BC, ADIFF, ANEU, CMP, TSH, FT4, VIDH, GFR #### [address] [address] Eosinophil, Absolute 0.20 10 3/mcL Normal 0.00-0.65 [facility] ([place]) Comment on above: Performed By: #### C BC, ADIFF, ANEU, CMP, TSH, FT4, VIDH, GFR #### [address] [address] Eosinophils/100 WBC (Bld) 1.7 % Normal 0.0-6.0 [facility] ([place]) Comment on above: Performed By: #### C BC, ADIFF, ANEU, CMP, TSH, FT4, VIDH, GFR #### [address] [address] Lymphocyte, Absolute 3.20 10 3/mcL Normal 0.90-4.32 [facility] ([place]) Comment on above: Performed By: #### C BC, ADIFF, ANEU, CMP, TSH, FT4, VIDH, GFR #### [address] [address] Lymphocytes/100 WBC (Bld) 29.7 % Normal 20.0-40.0 [facility] ([place]) Comment on above: Performed By: #### C BC, ADIFF, ANEU, CMP, TSH, FT4, VIDH, GFR #### [place] [address] Monocyte, Absolute 0.60 10 3/mcL Normal 0.09-1.40 [facility] ([place]) Comment on above: Performed By: #### C BC, ADIFF, ANEU, CMP, TSH, FT4, VIDH, GFR #### [place] [address] Monocytes/100 WBC (Bld) 5.5 % Normal 2.0-13.0 [facility] ([place]) Comment on above: Performed By: #### C BC, ADIFF, ANEU, CMP, TSH, FT4, VIDH, GFR #### [place] [address] Neutrophils/100 WBC (Bld) 62.4 % Normal 50.0-75.0 [facility] ([place]) Comment on above: Performed By: #### C BC, ADIFF, ANEU, CMP, TSH, FT4, VIDH, GFR #### [place] [address] .NEUABSon 06-28-2021 Neutrophil, Absolute 6.70 10 3/mcL Normal 2.25-8.10 [facility] ([place]) Comment on above: Performed By: #### C BC, ADIFF, ANEU, CMP, TSH, FT4, VIDH, GFR #### [place] [address] CBCon 06-28-2021 Erythrocyte distribution width (RBC) [Ratio] 12.4 % Normal 11.5-15.5 [facility] ([place]) Comment on above: Performed By: #### C BC, ADIFF, ANEU, CMP, TSH, FT4, VIDH, GFR #### [place] [address] Hematocrit (Bld) [Volume fraction] 40.7 % Normal 34.0-46.0 [facility] ([place] Comment on above: Performed By: #### C BC, ADIFF, ANEU, CMP, TSH, FT4, VIDH, GFR #### [place] [address] Hgb 13.6 G/dL Normal 12.0-16.0 [facility] ([place]) Comment on above: Performed By: #### C BC, ADIFF, ANEU, CMP, TSH, FT4, VIDH, GFR #### [place] [id number] MCH (RBC) [Entitic mass] 28.2 pg Normal 27.0-33.0 [facility] ([place]) Comment on above: Performed By: #### C BC, ADIFF, ANEU, CMP, TSH, FT4, VIDH, GFR #### [place] [address] MCHC 33.4 G/dL Normal 32.0-36.0 [facility] ([place] Comment on above: Performed By: #### C BC, ADIFF, ANEU, CMP, TSH, FT4, VIDH, GFR #### [place] [address] MCV (RBC) [Entitic vol] 84.6 fL Normal 80.0-99.0 [facility] ([place] Comment on above: Performed By: #### C BC, ADIFF, ANEU, CMP, TSH, FT4, VIDH, GFR #### [place] [address] Platelet 349 10 3/mcL Normal 150-450 [facility] ([place]) Comment on above: Performed By: #### C BC, ADIFF, ANEU, CMP, TSH, FT4, VIDH, GFR #### [place] [address] Platelet mean volume (Bld) [Entitic vol] 7.7 fL Normal 6.6-10.5 [facility] ([place]) Comment on above: Performed By: #### C BC, ADIFF, ANEU, CMP, TSH, FT4, VIDH, GFR #### [place] [address] RBC 4.81 10 6/mcL Normal 4.10-5.30 [facility] ([place]) Comment on above: Performed By: #### C BC, ADIFF, ANEU, CMP, TSH, FT4, VIDH, GFR #### [address] [place], [place] [address] WBC 10.70 10 3/mcL Normal 4.50-10.80 [facility] ([place]) Comment on above: Performed By: #### C BC, ADIFF, ANEU, CMP, TSH, FT4, VIDH, GFR #### [facility] [address] [place] [address] Basophil percentageon 2021 Basophil percentage TNP [facility] Work Phone: Comment on above: Test not performed Cervical or vagninal specime n microscopic examination by cytology stain (reported ason 06-19-2021 Cytology report Cyto stain Doc (Cvx/Vag) Comment [place] Work Phone: Comment on above: The Pap [...] rRNA ROSEANN+probe Ql (Unsp spec) Positive Negative [place] Work Phone: HIV 1 and HIV-2 antibody ass ay with HIV-1 p24 antigen detectionon 06-19-2021 HIV 1+2 Ab+HIV1 p24 Ag IA Ql Non-Reactive Nonreactive [place] Work Phone: Laboratory - Cytologyon Paleontology Teacher Cyto stain Nom (Cvx/Vag) [ID] Comment [place] Work Phone: Comment on above: Xander Redmond totechnologist Laboratory - Microbiology an d Antimicrobial susceptibilityon 06-19-2021 N. gonorrhoeae DNA ROSEANN+probe Ql (Unsp spec) Negative Negative [place] Work Phone: Comment on above: Performed at: = - L [address] [id number] Director: Gladys Scott MD, Phone: [phone] Laboratory - Miscellaneous t estson 06-19-2021 Service comment (Unsp spec) [Interp] Comment [place] Work Phone: Comment on above: This liquid based Th inPrep(R) pap test was screened withthe use of an image guided system. Service comment (Unsp spec) [Interp] . [place] Work Phone: No Panel Informationon 06-19 Human Papillomavirus Screen Comment [place] Work Phone: Comment on above: The HPV DNA reflex c jessika were not met with this specimenresult therefore, no HPV testing was performed.Performed at: - [facility]za[place], [place] [id number] Director: Gladys Scott MD, Phone: [phone] Pathology report final diagnosis Narrative Comment [place] Work Phone: Comment on above: NEGATIVE FOR INTRAEP ITHELIAL LESION OR MALIGNANCY. Addendum Document Comment [place] Work Phone: Comment on above: The quantitative ran ge of this assay is 15 IU/mL to 100million IU/mL. Herpes Simplex Virus I IgG Antibody < 0.91 index [place] Work Phone: Comment on above: Negative <0.91 Equiv ocal 0.91 - 1.09 Positive >1.09 Note: Negative indicates no antibodies detected to HSV-1. Equivocal may suggest early infection. If clinically appropriate, retest at later date. Positive indicates antibodies detected to HSV-1. Serum herpes simplex virus 2 antibody assay by immunoassay (units/volume)on 06-19-2021 HSV 2 Ab IA Qn (S) < 0.91 index [facility] Work Phone: Comment on above: Negative <0.91 Equiv ocal 0.91 - 1.09 Positive >1.09 Note: Negative indicates no HSV-2 antibodies detected. Positive indicates HSV-2 antibodies detected. Equivocal and low positive HSV-2 screens (Index 0.91-5.00) may be false positive and are reflexed to supplemental testing in accordance with CDC guidelines.Performed at: - [email or web address] [id number] Director: Giuseppe Aviles MD, Phone: [phone] at: CB - [facility] [address] [id number] Director: Jose Haywood PhD, Phone: [phone] Serum or plasma hepatitis C virus RNA measurement by probe and target amplification mon 06-19-2021 HCV RNA ROSEANN+probe Qn Not detected [facility] Work Phone: CNNURSEon 02-25-2021 [facility] ----- ALBARO HO ([id number]) 1995 F Date Time Provider Department 02/25/21 3:40 PM NURSE URG [facility] During your visit today, we recorded the [...] Diagnosis:PPD screening test [Z11.1] Order(s):PPD (TB INTRADERMAL 40486) B/O [6236590] Order #: [id number] Prescriptions as of 02/25/2021 - citalopram (CELEXA) [...] Encounter Status:Closed by MICHELLE MOYER on 02/25/21 Normal [facility] CNOVon 09-06-2020 CNOV Office Visit ([facility] ) ----- ALBARO HO ([id number]) 1995 F Date Time Provider Department 09/06/20 2:20 PM ERIN WU During your visit today, we recorded the following information about you: Temperature Pulse Respiration Blood pressure 98.3 degrees 92/minute 16/minute 105/73 Weight 104.3 kg Deepika Milton Apn Student 09/06/2020 2:55 PM Signed Use antibiotic [...] department for any changes in vision. Mariel Persaud, HÉCTOR.CLAY MIXER 09/06/2020 7:54 PM Signed September 06, 2020 [...] as presc (more content not included)... Normal [facility] STRP SCNon 07-09-2019 STRP SCN Performed at: [facility] [address] [place] [id number] STREP SCREEN POSITIVE REFERENCE RANGE NORMAL RESULT IS NEGATIVE. Normal [facility] PROGRESSon 02-09-2018 Protein mass conc HNO ID: [id number] thor: Provider CchsService: (none)Author Type: PhysicianType: Progress NotesFiled: 03/12/2018 9:21 PMNote Text:[facility] [place], [place] [address]QZMKA CARE REPORTPatient: GLADYS HO FC-A MANDA L F.[id number] FStatus: REG POV FCDate of Service: 02/09/18Report Date AND Time: 02/09/18 1557HPIHistory Of Present IllnessChief ComplaintEye Problem/Pain (HAYDE)CC HistoryPt comes in today stating she has an eye infection. States she had asimilar thing a couple years ago that they couldnt figure out what it wasand she was put on eye drops for an infection and it cleared up. Joshuae noticed it yesterday. She has a 3 wk baby at home and occasionallypumpsVital SignsVital SignsFirst LastResult Date Time Result Date TimePulse Ox 97 02/10 1532 97 02/09 1532B/P 92/66 02/10 1532 9266 02/09 1532Temp 98.0 02/10 1532 98.0 02/09 1532Pulse 83 02/09 153 83 02/09 1532Resp 20 02/09 153 20 02/10 1532MedicationsReported MedicationsCitalopram* Hbr (Celexa*) 10 MG PO QDAY[anxiety mad]Enoxaparin* Sodium (Lovenox*) 30 MG SC [id number] Allergies:No Known Drug Allergies (02/09/18)Patient Health HistoryMedical [...] the patient and were understood.Report to the [facility] Emergency Department if any further problemsoccur.Diagnosis1. Hordeolum of right eye*PrescriptionsPrescrip tions (FC)Medication Dose/Rte/Freq Days Qty EnteredMax Daily DoseAzithromycin* 1% Ophth 1 DROP OD 2.5 02/09/18(Azasite* 1% Ophth) DIRECTED 1555Strength: 2.5 ML ENRIKE 02/09/18 1600 LISA MARTINO F.N.P. << Signature on File>> Reported By: MARJORIE MARTINO F.N.PRadha Signed By: MARJORIE MARTINO F.NRadhaPRadhaTests performed at:[address] [id number] Normal [facility] Office Visit: UC: diarrheaon 03-28-2017 Documentation of current medications (procedure) Done Invalid Interpretation Code [facility] Work Phone: Documentation of current medications (procedure) T Invalid Interpretation Code [facility] Work Phone: Fall risk assessment No Invalid Interpretation Code [facility] Work Phone: Tobacco use [facility] Never smoker Invalid Interpretation Code [facility] Work Phone: Vital Signs Date Time Vital Sign Value Performing Clinician Marcia yi 02-07-2025 09:19-0400 Body height 154.31 cm No Primary Care Physician [place] 02-07-2025 09:16-0400 Body mass index (BMI) [Ratio] 45.7 kg/m2 No Primary Care Physician [place] 02-07-2025 09:16-0400 Body weight 108.94 kg No Primary Care Physician [place] 02-07-2025 09:16-0400 Diastolic blood pressure 80 mm[Hg] No Primary Care Physician [place] 02-07-2025 09:16-0400 Systolic blood pressure 115 mm[Hg] No Primary Care Physician [place] 12-10-2024 14:56-0400 Body height 154.31 cm No Primary Care Physician [place] 12-10-2024 14:56-0400 Body mass index (BMI) [Ratio] 46.3 kg/m2 No Primary Care Physician [place] 12-10-2024 14:56-0400 Body weight 110.39 kg No Primary Care Physician [place] 12-10-2024 14:56-0400 Diastolic blood pressure 77 mm[Hg] No Primary Care Physician [place] 12-10-2024 14:56-0400 Systolic blood pressure 116 mm[Hg] No Primary Care Physician [place] 08-21-2023 15:51-0400 Body height 154.31 cm No Primary Care Physician [place] 08-21-2023 15:44-0400 Body mass index (BMI) [Ratio] 47.8 kg/m2 No Primary Care Physician [place] 08-21-2023 15:44-0400 Body weight 113.85 kg No Primary Care Physician [place] 08-21-2023 15:44-0400 Diastolic blood pressure 75 mm[Hg] No Primary Care Physician [place] 08-21-2023 15:44-0400 Systolic blood pressure 119 mm[Hg] No Primary Care Physician [place] 12-25-2022 14:53-0400 Body height 154.31 cm No Primary Care Physician [place] 12-25-2022 14:47-0400 Body mass index (BMI) [Ratio] 49.6 kg/m2 No Primary Care Physician [place] 12-25-2022 14:47-0400 Body weight 118.1 kg No Primary Care Physician [place] 12-25-2022 14:47-0400 Diastolic blood pressure 82 mm[Hg] No Primary Care Physician [place] 12-25-2022 14:47-0400 Systolic blood pressure 124 mm[Hg] No Primary Care Physician [place] 08-13-2022 12:09-0400 Body height 154.31 cm No Primary Care Physician [place] 08-13-2022 12:08-0400 Body mass index (BMI) [Ratio] 48.4 kg/m2 No Primary Care Physician [place] 08-13-2022 12:08-0400 Body weight 116.34 kg No Primary Care Physician [place] 08-13-2022 12:08-0400 Diastolic blood pressure 77 mm[Hg] No Primary Care Physician [place] 08-13-2022 12:08-0400 Systolic blood pressure 109 mm[Hg] No Primary Care Physician [place] 10-04-2021 16:08-0400 Body height 154.[address] Leidy Morris Work Phone: [place] Work Phone: 10-04-2021 16:08-0400 Body mass index (BMI) [Ratio] 47.6 kg/m2 Dr. Leidy Morris Work Phone: [place] Work Phone: 10-04-2021 16:08-0400 Body weight 113.[address] Leidy Morris Work Phone: [place] Work Phone: 10-04-2021 16:08-0400 Diastolic blood pressure 88 mm[Hg] Dr. Leidy Morris Work Phone: [place] Work Phone: 10-04-2021 16:08-0400 Systolic blood pressure 120 mm[Hg] Dr. Leidy Morris Work Phone: [place] Work Phone: 06-19-2021 14:48-0500 Body mass index (BMI) [Ratio] 46.6 kg/m2 Dr. Leidy Morris Work Phone: [place] Work Phone: 06-19-2021 14:48-0500 Body weight 111.[address] Leidy Morris Work Phone: [place] Work Phone: 06-19-2021 14:48-0500 Diastolic blood pressure 88 mm[Hg] Dr. Leidy Morris Work Phone: [place] Work Phone: 06-19-2021 14:48-0500 Systolic blood pressure 122 mm[Hg] Dr. Leidy Morris Work Phone: [place] Work Phone: 03-28-2017 16:00-0500 BMI (Body Mass Index) 39.52 kg/m2 Anita Park LPN [facility] No w Clinic Work Phone: 03-28-2017 16:00-0500 Body Temperature 98.9 [degF] Anita Park LPN [facility] Work Phone: 03-28-2017 16:00-0500 BP Diastolic 76 mm[Hg] Anita Park LPN [facility] Now [facility] ic Work Phone: 03-28-2017 16:00-0500 BP Systolic 118 mm[Hg] Anita Park LPN [facility] Work Phone: 03-28-2017 16:00-0500 Height 154.94 cm Anita Park LPN [facility] Work Phone: 03-28-2017 16:00-0500 Pulse (Heart Rate) 82 /min Anita Park LPN [facility] Now C [facility]inic Work Phone: 03-28-2017 16:00-0500 Respiratory Rate 14 /min Anita Park LPN [facility] Work Phone: 03-28-2017 16:00-0500 Weight 94.89 kg Anita Park LPN [facility] ic Work Phone: Encounters Encounter Date Encounter Type Care Provider Facility Start: 03-24-2025 ambulatory Leidy wilsony:[facility] Start: 03-07-2025 End: 03-07-2025 ambulatory Leidy Morris Facility:[facility] Start: 03-07-2025 End: 03-07-2025 ambulatory Leidy Morris Facility:[place] Start: 02-07-2025 End: 02-07-2025 Patient encounter procedure Maryellen SAM -[facility] Work Phone: Start: 02-07-2025 End: 02-07-2025 ambulatory No Primary Care Physician -[facility] Start: 01-27-2025 ambulatory Leidy wilsony:[facility] Start: 12-10-2024 Encounter for gynecological examination (general) (routine) without abnormal findings Leidy Morris [place] Start: 12-10-2024 End: 12-10-[address] Leidy Morris MD -[facility] Work Phone: Start: 12-10-2024 End: 12-10-[address] Leidy Morris MD [place] Start: 12-10-2024 End: 12-10-2024 ambulatory No Primary Care Physician [facility] Start: 12-10-2024 End: 12-10-2024 ambulatory No Primary Care Physician Facility:[place] Start: 08-21-2023 End: 08-21-2023 ambulatory No Primary Care Physician [place] Work Phone: Start: 08-21-2023 End: 08-21-2023 Patient encounter procedure No Primary Care Physician [place] Work Phone: Start: 08-21-2023 End: 08-21-2023 Patient encounter procedure No Primary Care Physician [facility] Work Phone: Start: 05-14-2023 End: 05-15-2023 ambulatory [facility] Start: 12-25-2022 End: 12-25-2022 ambulatory No Primary Care Physician [place] Work Phone: Start: 12-25-2022 End: 12-25-2022 Patient encounter procedure No Primary Care Physician [place] Work Phone: Start: 12-25-2022 End: 12-25-2022 Patient encounter procedure No Primary Care Physician [facility] Work Phone: Start: 08-13-2022 End: 08-13-2022 ambulatory No Primary Care Physician [place] Work Phone: Start: 08-13-2022 End: 08-13-2022 Patient encounter procedure No Primary Care Physician [place] Start: 08-13-2022 End: 08-13-2022 Patient encounter procedure No Primary Care Physician [facility] Start: 10-04-2021 End: 10-04-[address] Leidy Morris Work Phone: [facility] Start: 06-19-2021 End: 06-19-[address] Leidy Morris Work Phone: [place] Start: 12-08-2017 Patient encounter DIANNA PERALTA [facility] Procedures Date Procedure Procedure Detail Performing Clinician Start: 12-10-2024 Liquid based cervica l cytology screening No Primary Care Physician Comment on above: EPITHELIAL CELL ABNO RMALITY.ATYPICAL SQUAMOUS CELLS OF UNDETERMINED SIGNIFICANCE (ASC-US). This liquid based Th inPrep(R) pap test was screened withthe use of an image guided system. Start: 05-14-2023 XR CHEST 1 VIEW ALEE ESPARZA Start: 12-25-2022 Cytopathology proced ure, preparation of smear, genital source No Primary Care Physician Start: 12-25-2022 Investigation of transfusion reaction No Primary Care Physician Plan of Treatment Date Care Activity Detail Author Start: 02-07-2025 [facility] Start: 03-28-2017 End: 03-28-2017 Appointment Appointment [facility] Work Phone: [facility] Work Phone: Immunizations Immunization Date Immunization Notes Care Provider Fa lisa 11-06-2017 tetanus toxoid, reduced diphtheria toxoid, and acellular pertussis vaccine, adsorbed Dr. Leidy Morris Work Phone: [place] 11-06-2017 diphtheria, tetanus toxoids and acellular pertussis vaccine, unspecified formulation Dr. Leidy Morris Work Phone: [place] Work Phone: 02-10-2017 influenza, injectabl e, quadrivalent, preservative free No Primary Care Physician [place] 02-10-2017 influenza, seasonal, injectable Dr. Leidy Morris Work Phone: [place] 12-30-[address] Leidy Morris Work Phone: [place] 12-25-2016 hepatitis B vaccine, pediatric or pediatric/adolescent dosage Dr. Leidy Morris Work Phone: [place] Payers Date Payer Category Payer Private Health Insurance [id number] 2024 Self-pay [id number] Unknown [id number] Unknown [id number] Unknown [id number] 2.16.8 [id number] Unknown [id number] 2.16.8 [id number] Unknown [id number] 2.16.8 [id number] Unknown [id number] 2.16.8 [id number] Unknown [id number] 2.16.8 [id number] Unknown [id number] 2.16.8 [id number] Unknown [id number] 2.16.8 [id number] Social History Date Type Detail Facility Start: 10-04-2021 End: 08-21-2023 Tobacco smoking status NHIS Unknown if ever smoked [place] Start: 1995 Sex Assigned At Female [facility] Start: 01-19-2018 None [facility] Start: 12-10-2024 End: 12-10-2024 Tobacco smoking status NHIS Never smoked tobacco (finding) [place] Sex Female [facility] NEGATED: Highlighted row - - [facility] Work Phone: Functional Status Date Assessment Result Facility NEGATED: Highlighted row Functional performance Functional status health issues are not documented Disease [facility] Work Phone: Mental Status Date Assessment Result Facility NEGATED: Highlighted row Cognitive function [Interpretation] Cognitive status health issues are not documented Disease [facility] Work Phone: Clinical Notes 09-06-2020 to 02-07-2025 Note Date & Type Note Facility 02-07-2025 Progress note [facility] 12-10-2024 Evaluation note Diagnosis Onset Date Resolution Encounter for routine gynecological examination noneactive December 10, 2024 2:54pm [place] Work Phone: 1(425) 264-935308-01-2025 Evaluation note* Diagnosis Onset Date Resolution Status Admit Date Encounter for routine gynecological examination noneactive December 10, 2024 2:54pm ASCUS with positive high risk HPV cervical acute January 9:13am Encounter for IUD removal noneactive February 07, 2025 9:13am [facility] Work Phone: 1(291) 503-482208-01-2025 Progress [facility] [address] [place] [address], [address] [place] [address] OFFICE VISIT Date of Service: 12/10/24 MR#: [id number] Acct: [id number] Name: ALBARO HO Rep #: [id number] : 1995 Provider: Dr. 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) Talent Scout Required: No Is patient in pain?: No [...] menopausal: No Patient : No : No PFSH Medical History Factor 5 Leiden mutation, heterozygous Anxiety and depression Family History Mother Factor 5 Leiden mutation, heterozygous Grandmother CVA (cerebral vascular accident) Thyroid disorder Grandmother COPD (chronic obstructive pulmonary disease) Heart disease Aunt Thyroid disorder Social History (Updated 12/10/24 @ 15:01 by Maryellen Lara) current occupational status: employed 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 Smoking Status: Never smoker alcohol intake: never [...] Date Name GA/Weeks Outcome Route Bth Weight Gen Labor Lgth Anesthesia Del [facility] Provider FOB 01/19/18 Demetri 40 live - full term vacuum Male epi dural [facility] ISIDRO Delivery Date: 01/19/18 Last Updated by: [...] acute distress, well developed and well groomed [facility] Head: normal to inspection and normocephalic Ears: [...] abnormal findings ABSENT Qualified Code(s): Z01.419 - Encounterfor gynecological examination (general) (routine) without abnormal findings [...] exam or sooner if needed. 12/10/24 1511 aidan VANN> Date _ Leidy Morris MD Cosigner Signature: Date (if applicable) CC: ~ [facility]08-01-2025 Progress note Author Leidy Morris [facility] Note Date/Time December 10, 2024 3:[address] [place] [address], [address] [place] [address] OFFICE VISIT Date of Service: 12/10/24 MR#: [id number] Acct: [id number] Name: ALBARO HO Rep #: [id number] : 1995 Provider: Dr. 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) Talent Scout Required: No Is patient in pain?: No [...] menopausal: No Patient : No : No PFSH Medical History Factor 5 Leiden mutation, heterozygous Anxiety and depression Family History Mother Factor 5 Leiden mutation, heterozygous Grandmother CVA (cerebral vascular accident) Thyroid disorder Grandmother COPD (chronic obstructive pulmonary disease) Heart disease Aunt Thyroid disorder Social History (Updated 12/10/24 @ 15:01 by Maryellen Lara) current occupational status: employed 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 Smoking Status: Never smoker alcohol intake: never [...] Weight Infant Gen [facility] 01/19/18 Demetri 40 live - full term vacuum Male epi dural [facility] ISIDRO Delivery Date: 01/19/18 Last Updated by: [...] acute distress, well developed and well groomed [facility] Head: normal to inspection and normocephalic Ears: [...] Cosigner Signature: Date (if applicable) CC: ~ [facility] Work Phone: [phone] NotePap Smear Specimen AdequacyApril 2022 3:39pmComment.Satisfactory for evaluation. Endocervical and/or squamous metaplasticcells (endocervical component)are present.[employer] INTERFACED A#[id number]t on above:Satisfactory for evaluation. Endocervical and/or squamous metaplasticcells (endocervical component)are present.06-19-2021 NotePap Smear Specimen AdequacyFebruary 2021 6:12pmCommentSatisfactory for evaluation. Endocervical and/or squamous metaplasticcells (endocervical component)are present.[employer] INTERFACED A#[id number] Work Phone: Comment on above:Satisfactory for evaluation. Endocervical and/or squamous metaplasticcells (endocervical component)are present.09-06-2020 NoteHNO ID: [id number] Author: Erin Persaud APRN.CLAY MIXER Service: ? Author Type: Nurse Practitioner Type: [...] in vision. Deepika Milton APN-student TEACHING PROVIDER (Physician/PA/PET NUTRITION SPECIALIST) NOTE OF PERSONAL INVOLVEMENT IN CARE: I have personally seen and examined the patient and performed the medical decision-making components. I have reviewed the Advanced Practice Registered Nurse (PET NUTRITION SPECIALIST) Student's documentation and verified the findings in the note as written. Signature: (more content not included)...[facility] Diagnosis Onset Date Resolution Status Anxiety and depression acute [place] Work Phone: Evaluation note* Diagnosis Onset Date Resolution Status Anxiety and depression acute ASCUS with positive high risk HPV cervical acute Factor V Leiden mutation affecting acute Encounter for routine gynecological examination noneactive [place] Work Phone: Evaluation note* Diagnosis Onset Date Resolution Status Possible exposure to STD non eactive Vaginal burning noneactive [place] Work Phone: Evaluation note* Diagnosis Onset Date Resolution Status Encounter for routine gynecological examination noneactive [place] Work Phone: Evaluation note* Diagnosis Onset Date Resolution Status Admit Date Encounter for routine gynecological examination noneactive December 10, 2024 2:54pm [facility] Work Phone: Instructions* Name Dates Details Instructions not documented [facility] Work Phone: Progress note Author Maryellen Castle [facility] Note Date/Time February 07, 2025 9:27am [facility] [address], [address] [place] [address] OFFICE VISIT Date of Service: 02/07/25 MR#: [id number] Acct: [id number] Name: ALBARO HO Rep #: [id number] : 1995 Provider: CECY Castle Age/Sex: 29/F Location: [facility] Status: Signed Intake Vital Signs 12/10/24 14:56 12/10/24 15:16 02/07/25 09:16 02/07/25 09:19 Height 5 ft 0.75 in 5 ft 0.75 in 5 ft 0.75 in 5 ft 0.75 in Weight: 243 lb 6 oz 240 lb 3 oz BMI 46.3 45.7 BP 116/77 115/80 Intake Visit Reasons: IUD REMOVAL Chief Complaint: IUD removal Talent Scout Required: No Is patient in pain?: No Allergies No Known Allergies Allergy (Verified 02/07/25 09:21) Medications ?Medication ?Instructions ?Recorded ?Confirmed ?Type hydroxyzine pamoate 50 mg capsule 50 mg PO 4X/DAY PRN PRN Anxiety 08/21/23 02/07/25 Rx #90 caps citalopram 20 mg tablet 20 mg PO QDAY depression #30 tabs 12/10/24 02/07/25 Rx Is last menstrual period known: No Post menopausal: No Patient : No : No [facility] Medical History Factor 5 Leiden mutation, heterozygous Anxiety and depression Family History Mother Factor 5 Leiden mutation, heterozygous Grandmother CVA (cerebral vascular accident) Thyroid disorder Grandmother COPD (chronic obstructive pulmonary disease) Heart disease Aunt Thyroid disorder Social History current occupational status: employed 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 Partner with low sperm count. If happens they are ok with that. She did miss her appt for colp and will reschedule that today History 1 Elective abortions Hx Para 1 Spontaneous abortions Hx # Term Pregnancies Ectopic pregnancies Hx # Pregnancies Multiple births # of living children 1 Past Pregnancies Del. Date Name GA/Weeks Outcome Route Bth Weight Gen Labor Lgth Anesthesia Del Locatn Provider FOB 01/19/18 Demetri 40 live - full term vacuum Male epi dural [facility] IS[facility]RO Delivery Date: 01/19/18 Last Updated by: Magda Holloway Preeclampsia, 4th degree laceration 2nd degree episiotomy, VAVD ROS Const Constitutional: Reports system reviewed and no additional complaints, except as documented Eyes Eyes: Reports system reviewed and no additional complaints, except as documented GI GI: Denies abdominal pain or change in bowel habits : Reports as per HPI Exam Const General: cooperative and no acute distress Orientation: oriented x3 General: bladder normal to palpation External Female Exam: normal external appearance and normal appearance of the urethra Urethra: normal appearance of the urethra Speculum Exam - Vagina: normal appearance of the vagina, normal vaginal discharge, no lesions and nontender Speculum Exam - Cervix: normal appearance of the cervix Bimanual Exam- Vagina & Uterus: normal bimanual exam, uterine size normal, bladder normal to palpation, uterine shape normal, uterine mobility normal and non- tender Bimanual Exam- Adnexa, other: normal adnexae, no masses and non-tender Coding Level of Care Code Attention Metal Cleaner Diagnoses Encounter for IUD removal Z30.432 ASCUS with positive high risk HPV cervical R87.610; R87.810 Assessment and Plan Assessment and Plan (1) Encounter for IUD removal: (2) ASCUS with positive high risk HPV cervical: Status: Acute Comment: initial 2019. repeat pap negative 2021, 2022; 2024: ASCUS +HPV: rpt colp Orders: Orders IUD Removal Today Z30.432 - Encounter for removal of intrauterine contraceptivedevice Plan Condoms if wants to defer Start vitamin RTO colp 02/07/25 0928 <Electronically signed by Maryellen smith FILLING MACHINE TENDER FILLING MACHINE TENDER-C> Date _ Maryellen Castle NP FILLING MACHINE TENDER-C Cosigner Signature: Date (if applicable) CC: ~ [facility] Work Phone: Reason for referral (narrative)No reason for referral information availableMad[facility] Hospital Work Phone: Summary Purpose Family History No Family History Records Found Mother Name Dates Details No pertinent family [...] aunt Disorder of thyroid Unknown Advance Directives No Advanced Directives Records Found Advance Directive Response Recorded Date/ Time Living Will No January 19, 2018 11:38am Power of Traveling Engineer No January 11:38am Advance Directive Response Recorded Date/ Time Living Will No January 19, 2018 11:38am Do you have a Healthcare Power of Traveling Engineer? 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) Reason for Visit Encounter for routin e gynecological examination Chief Complaint Admit Date 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) December 10, 2024 2:5 4pm Reason for Visit Admit Date Encounter for routine gynecological exam ination December 10, 2024 2:54pm Chief Complaint Admit Date 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) December 10, 2024 2:5 4pm IUD REMOVAL February 07, 2025 9:13am Reason for Visit Admit Date Encounter for routine gynecological exam ination December 10, 2024 2:54pm ASCUS with positive high risk HPV cervic al February 07, 2025 9:13am Encounter for IUD removal January 9:13am Additional Source Comments INFORMATION SOURCE (unrecogn ized section and content) DATE CREATED AUTHOR 12/08/2017 [facility] DATE CREATED AUTHOR AUTHOR'S ORGANIZ ATION 04/19/2018 [facility] DATE CREATED AUTHOR AUTHOR'S ORGANIZ ATION 11/27/2019 [facility] DATE CREATED AUTHOR AUTHOR'S ORGANIZ ATION 06/08/2021 [facility] DATE CREATED AUTHOR AUTHOR'S ORGANIZ ATION 07/13/2021 [facility] DATE CREATED AUTHOR AUTHOR'S ORGANIZ ATION 05/18/[address] [facility] DATE CREATED AUTHOR AUTHOR'S ORGANIZ ATION 03/23/2025 [facility] Goals (unrecognized section and content) Type Care Experience Care Teams (unrecognized sec tion and content) [...] Physician Primary Care Provider Active Maryellen Castle FILLING MACHINE TENDER, FILLING MACHINE TENDER-C Attending Provider, Referring Provider Active Team Status: Inactive Member Role Status Dates No Primary Care Physician Primary Care Provider, Refer ring Provider Active Maryellen Castle FILLING MACHINE TENDER, FILLING MACHINE TENDER-C Attending Provider Active Team Status: Inactive Member [...] December 10, 2024 End: December 10, 2024 Team Status: Inactive Member Role/Relationship Status Dates No Primary Care Physician Primary Care Provider Active Start: December 10, 2024 End: December 10, 2024 Dr. Leidy Morris MD Attending Provider Active Start: December 10, 2024 End: December 10, 2024 Dr. Leidy Morris MD Referring Provider Active Start: December 10, 2024 End: December 10, 2024 Team Status: Active Member Role/Relationship Status Dates No Primary Care Physician Primary care physician Activ e Team Status: Inactive Member Role/Relationship Status Dates No Primary Care Physician Primary care physician Activ e Start: December 10, 2024 End: December 10, 2024 No Primary Care Physician Referring Provider Active Start: December 10, 2024 End: December 10, 2024 Dr. Leidy Morris MD Attending physician Active Start: December 10, 2024 End: December 10, 2024 Team Status: Inactive Member Role/Relationship Status Dates No Primary Care Physician Primary care physician Activ e Start: December 10, 2024 End: December 10, 2024 Dr. Leidy Morris MD Attending physician Active Start: December 10, 2024 End: December 10, 2024 Dr. Leidy Morris MD Referring Provider Active Start: December 10, 2024 End: December 10, 2024 Team Status: Inactive Member Role/Relationship Status Dates No Primary Care Physician Primary care physician Activ e Start: February 07, 2025 End: February 07, 2025 No Primary Care Physician Referring Provider Active Start: February 07, 2025 End: February 07, 2025 Maryellen Castle NP, FILLING MACHINE TENDER-C Attending physician Active Start: February 07, 2025 End: February 07, 2025 FOR RECORDS PERTAINING TO PATIENTS WHO ARE [...] BE BASED ON THE PRIMARY CLINICAL RECORDS. [employer] provides no warranty or guarantee of the accuracy or completeness of information in this document.
--- NOTE | 2025-04-15 07:26 | PRE.ANES_ITS ---
ASA Classification* ASA Classification ASA Classification: 2 Assessment & Plan Anesthesia* Anesthesia Assessment Anesthesia Assessment: Discussed sedation and/or anesthesia options, risks, benefits, and alternatives with patient/parents/legal guardian/POA. Questions invited. The patient/parents/legal guardian/POA seems to understand and agrees to proceed with anesthesia plan. Reviewed the physical assessment, medical history, allergy history and patient home medications list prior to surgery/procedure/anesthetic and documented any changes. Performed airway and anesthesia risk assessments. Anesthesia Type Anesthesia Type: MAC Anesthesia Focused Assessment* Airway Assessment Mouth opens: >3 cm Mallampati Score: II Labs Anesthesia Preop lab: CBC WBC, (4.4-11.0) 12.5 K/mm3 H 04/12/25, 12:50 RBC, (4.2-5.4) 4.73 M/mm3 04/12/25, 12:50 Hgb, (12.0-15.0) 13.5 g/dL 04/12/25, 12:50 Hct, (37-47) 40.6 % 04/12/25, 12:50 Plt Count, (150-450) 363 K/mm3 04/12/25, 12:50 CHEMISTRY Creatinine, (0.55-1.02) 0.74 mg/dL 01/19/18, 10:45 COAG PT, (11.7-14.9) 12.8 SECONDS 01/19/18, 10:45 Tst Clinic Negative 03/07/25, 14:06 Pre-Assessment Diagnosis/Proposed Procedure Planned Operative Procedure(s): [facility] Anesthesia History 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 When Was Last Pacemaker Check QUESTION #4 FULL TEXT: You/Your Family Experience fever (hyperthermia) with Anesthesia Last Oral Intake Last Oral intake: Last Oral Intake NPO since Meds taken in AM with sips of water? Meds patient instructed to take am of surgery PONV PONV - airborne operations manager: PONV - airborne operations manager Female Yes 04/08/25 10:47 HX of Motion Sickness No 04/08/25 10:47 HX of N/V After Surgery No 04/08/25 10:47 Non-Smoker Yes 04/08/25 10:47 Duration of Surgery greater No 04/08/25 10:47 than 60 minutes Number of Risk Factors 2 04/08/25 10:47 PONV Score Moderate Risk 04/08/25 10:47 Height & Weight Height & Weight: Anesthesia: Height & Weight Height 5 ft 0.75 in 03/24/25 13:16 Respiratory Assessment Respiratory Assessment - airborne operations manager: Respiratory Tract Infection Hx - airborne operations manager Hx Respiratory Tract Infection No 04/08/25 10:47 STOP Sleep Apnea STOP Sleep Apnea - airborne operations manager: STOP Sleep Apnea - airborne operations manager Hx Hypertension No 04/08/25 10:47 Hx Sleep Apnea No 04/08/25 10:47 CPAP BIPAP Do you snore loudly (louder No 04/08/25 10:47 than talking or can be heard Do you often feel tired/ No 04/08/25 10:47 fatigued/ sleepy during daytime? Has anyone observed you stop No 04/08/25 10:47 breathing during sleep? STOP Results Negative 04/08/25 10:47 QUESTION #5 FULL TEXT : Do you snore loudly (louder than talking or can be heard through closed doors)? 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 Specify any problems Hx of Preganancy in last 3 N/A 04/08/25 10:47 Months Nurse Filling Out Transfusion NBUCHER 04/08/25 10:47 & Questions: Date: 04/08/25 04/08/25 10:47 Time: 10:47 04/08/25 10:47 Patient unable to answer at this time (ie. confused, unrespo /Reproduction History /Reproductive History - airborne operations manager: /Reproductive Hx- airborne operations manager Hx Now No 04/08/25 10:47 Gestational Age (in weeks): EDC: Hx Hx Para Hx Section SAB No 04/08/25 10:47 Does the father of the baby or his family experience fever w Father of the baby Malignant Hypertension history comment Active Medications Active Medications: Current Medications Generic Name Dose Route Start Last Admin Trade Name Freq PRN Reason Stop Dose Admin Lactated Ringer's 1,000 mls @ 15 mls/hr 04/15/25 07:30 IV .Q48H LILIAN PFSH Medical History Wears glasses Depression Anxiety Migraine headache Syncope Gastric reflux Non-smoker Factor 5 Leiden mutation, heterozygous Anxiety and depression Home Medications ?Medication ?Instructions ?Recorded ?Last Taken ?Type hydroxyzine pamoate 50 mg capsule 50 mg PO 4X/DAY PRN PRN Anxiety 08/21/23 Unknown Rx #90 caps citalopram 20 mg tablet 20 mg PO QDAY depression #30 tabs 12/10/24 Unknown Rx Allergy/AdvReac Type Severity Reaction Status Date / Time No Known Allergies Allergy Verified 04/08/25 10:46 Family History Mother Factor 5 Leiden mutation, heterozygous Grandmother CVA (cerebral vascular accident) Thyroid disorder Grandmother COPD (chronic obstructive pulmonary disease) Heart disease Aunt Thyroid disorder Social History current occupational status: employed 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
--- NOTE | 2025-04-15 07:28 | HP.PCM_ITS ---
History and Physical Date of Admission: 04/15/25 Vital Signs 03/07/2513:59 03/24/2513:15 03/24/2513:16 Height 5 ft 0.75 in 5 ft 0.75 in 5 ft 0.75 in Weight: 247 lb 7 oz 250 lb 8 oz BMI 47.1 47.7 BP 120/83 H 122/74 H Intake Visit Reasons: Discuss LEEP *copay $30 Hr Shared Services Consultant Required: No Is patient in pain?: No Allergies No Known Allergies Allergy (Verified 03/24/25 13:16) Medications ?Medication ?Instructions ?Recorded ?Confirmed ?Type hydroxyzine pamoate 50 mg capsule 50 mg PO 4X/DAY PRN PRN Anxiety 08/21/23 03/24/25 Rx #90 caps citalopram 20 mg tablet 20 mg PO QDAY depression #30 tabs 03/24/25 Rx Post menopausal: No Patient : No : No [facility] Medical History Factor 5 Leiden mutation, heterozygous Anxiety and depression Family History Mother Factor 5 Leiden mutation, heterozygous Grandmother CVA (cerebral vascular accident) Thyroid disorder Grandmother COPD (chronic obstructive pulmonary disease) Heart disease Aunt Thyroid disorder Social History current occupational status: employed 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 Colposcopy Results - Recent colposcopy revealed two areas of concern; one area was diagnosed as CIN2, a high-grade lesion. - Patient expresses concern about the implications of the colposcopy results and the recommended LEEP procedure. Menstrual History - Reports never having had normal periods. Family History - No family history of cervical cancer. Past Medical History - Factor V Leiden Social History - Has a child named Demetri. - Expresses a desire to have more children in the future. 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 Date Name GA/Weeks Outcome Route Bth Weight Infant Gen Labor Lgth Anesthesia Del Locatn Provider FOB 01/19/18 Demetri 40 live - full term va cuum Male epidural [facility] Delivery Date: 01/19/18 Last Updated by: Magda Holloway Preeclampsia, 4th degree laceration 2nd degree episiotomy, VAVD ROS Const Constitutional: Denies fatigue, night sweats, weight gain or weight loss ENT ENT: Reports system reviewed and no additional complaints, except as documented Cardio Card: Denies chest pain Resp Resp: Denies cough or dyspnea GI GI: Reports as per HPI; Denies abdominal pain, constipation, nausea or vomiting Musc Musc: Denies arthralgias, back pain or muscle weakness Skin Skin/Breast: Denies alopecia, change in hair, dry skin, breast mass, breast pain or breast skin changes Neuro Neuro: Reports system reviewed and no additional complaints, except as documented Endo Endo: Denies cold intolerance, excessive sweating, heat intolerance or polydipsia Nicolas/Lymph Hematologic/Lymphatic: Denies easy bleeding, Denies easy bruising and Denies lymphadenopathy Exam Const General: cooperative, healthy appearing, comfortable and no acute distress Orientation: alert [facility] Head: normal to inspection and normocephalic Ears: hearing grossly normal bilaterally and external ears normal Nose: external nose normal and nares normal Face and sinus: normal facial exam Neck Neck: normal visual inspection and no lymphadenopathy Thyroid: thyroid normal Chest Chest palpation & inspection: normal inspection of the chest Resp Effort & Inspection: normal respiratory effort Auscultation: clear to auscultation bilaterally Cardio Rate: regular rate Rhythm: regular rhythm Heart Sounds: S1 normal and S2 normal GI Inspection: normal to inspection and non-distended Palpation: soft and no hepatosplenomegaly Musc Other: gross motor intact no deficits, full bilateral strength Skin General: no rashes or lesions noted Neuro General: patient alert, patient awake, moves all extremities and no focal motor deficits Motor: muscle tone normal throughout Extrem General: normal to inspection and no pedal edema Psych Appearance: grossly normal Mental Status: mental status grossly normal Affect: normal affect Speech and Movement: speech and movement normal Coding Level of Care Code Off vis,est,level 4 Diagnoses High grade squamous intraepithelial lesion (HGSIL), grade 2 DAVID, on biopsy of cervix N87.1 Assessment and Plan Assessment and Plan (1) High grade squamous intraepithelial lesion (HGSIL), grade 2 DAVID, on biopsy of cervix: Status: Acute Comment: Cervix 2 o?clock biopsy Plan Assessment/Plan: # 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 - Recommended loop electrosurgical excision procedure (LEEP) to remove the pre- cancerous lesion and prevent progression to cervical cancer. - Outpatient procedure under anesthesia with minimal tissue removal to preserve cervical integrity and future fertility. - Reviewed potential risks, including bleeding and infection; advised no sexual intercourse or internal manipulation for 1 month post-procedure. - Counseled patient on use of condoms to avoid over the next few months for optimal cervical healing. - Explained the possibility of cervical length surveillance in subsequent pregn anjelica, with cerclage placement if clinically indicated. # Encounter for other preprocedural examination (Z01.818): - Scheduled LEEP on April 15; patient will receive anesthesia sufficient for comfort without endotracheal intubation. - Instructed to refrain from food for 8 hours prior and to use chlorhexidine wash (neck down) the night before and morning of surgery to reduce infection risk. - Advised to maintain clear liquids up to 2 hours before surgery; warned that adding cream to coffee invalidates ?clear liquid? status. - Reviewed plan for sequential compression devices (SCDs) intraoperatively to mitigate thrombotic risk. - Patient will receive arrival time confirmation via phone the day before; no additional work restrictions anticipated beyond short recuperation if desired. # Factor V Leiden mutation (D68.51): - No medication adjustment indicated for this minor procedure; mechanical prophylaxis with SCDs intraoperatively to reduce venous thromboembolism risk. - No additional therapy or bridging recommended; no changes to current regimen explicitly discussed. Patient Instructions: - You are scheduled for a Loop Electrosurgical Excision Procedure (LEEP) on April 15 as the first case of the day (likely 7:30 AM or 8:30 AM); you will receive a call the day before with the exact time. - Do not eat or drink anything except clear liquids for 8 hours before surgery; clear liquids (water, black coffee, clear sports drinks) are allowed up to 2 hours before. - Use the provided chlorhexidine soap (Prevastat) to wash from your neck down the night before and the morning of surgery; pour the solution over your body and do not use any other soap on surgery day. - Arrange for someone to drive you home after the procedure; you should not drive yourself. - Calf compression devices will be used during surgery to reduce blood clot risk, and you will go home the same day. - If you feel any soreness afterward, take [id number] pain relief such as Tylenol or ibuprofen as needed. - Avoid inserting anything into the vagina (tampons or internal stimulation) for 1 month; external stimulation only is fine. - When you resume intercourse after 1 month, use condoms with lubricant and avoid for at least 3 months (up to 6 months) to allow complete healing. - You may take a few days up to a week off work if you wish; you can return sooner if you feel well. UPDATE- I have seen the patient and performed any clinically relevant updates to the history and physical exam. Leidy Dutton MD
[2025-04-15] MEDS: Lactated Ringers 1,000 ML 15 ML IV (07:30)
[2025-04-15 07:49] LABS: Internal QC Validated? YES +Cl - CLEAR BKGD; Pregnancy, Urine Negative Negative
--- NOTE | 2025-04-15 08:30 | CONE_PTH ---
PATIENT: ALBARO DE LA CRUZ LOC: [facility] – [place], [place] U#:[id number] AGE/SX: 29/F ROOM: RE04/15/[address]: Dr. Leidy Dutton MD : 1995 BED: DIS: 04/15/2025 SPEC #: [id number] RECD: 04/15/25 09:27 STATUS: TAJ REFabiola #: [id number] RUTHY: 04/15/25 08:[address]: Leidy Dutton DEPT: SURGICAL PATHOLOGY RECD BY: Kyle Lozoya ENTERED: 04/15/25 11:29 SP TYPE: Leep Cone DASHA DR: Jasmin Primary Care Phys Tissues: A - Endocervical B - UTERINE CERVIX LEEP Procedures: Surgery Specimen Level IV Surgery Specimen Level V HEADER OPERATION: Leep PRE-OP DIAGNOSIS: High grade squamous intraepithelial lesion (HGSIL), grade 2 DAVID, biopsy of cervix TISSUE SUBMITTED: A- Endocervical curettings, B- Cervix MICROSCOPIC DIAGNOSIS A. Endocervix, curettage: - Fragments of endocervical and squamous mucosa with no obvious evidence of high-grade dysplasia or malignancy - see note. Note: Portions of the tissue are distorted with cautery artifact, limiting the assessment. B. Cervix, LEEP: - High grade MEGHAN (moderate dysplasia with HPV-cytopathic effect, DAVID 2), involving the endocervical surgical margin. MICROSCOPIC DESCRIPTION Slides are reviewed. GROSS DESCRIPTION Received in 2 formalin containers labeled with the patient's name and date of . Designated as: A. Endocervical curettings is a 0.7 x 0.3 x 0.1 cm aggregate of dark red apparent tissue and mucoid material. Entirely submitted in 1 cassette. B. Cervix is a 2.2 x 1.6 x 0.6 cm petersen-pink, erythematous portion of cervix, devoid of orientation. The ectocervix is inked black and the endocervix is inked orange. The specimen is radially sectioned and entirely submitted in 4 cassettes. DC 04/15/2025 CPT:[id number]
[2025-04-15] MEDS: Midazolam 2 MG/2 ML Syringe IV (08:32)
[2025-04-15] MEDS: Lactated Ringers 1,000 ML 1000 ML IV (08:32)
[2025-04-15] MEDS: Lidocaine 1% (5 ml sdv) 5 ML Vial IV (08:36)
[2025-04-15] MEDS: fentaNYL 100 MCG/2 ML Ampul IV (08:38)
[2025-04-15] MEDS: Lidocaine 1% (20 ml mdv) 20 ML Vial (09:01)
[2025-04-15] MEDS: FERRIC SUBSULFATE 8 GM SOLN (09:05)
--- NOTE | 2025-04-15 09:18 | PCM.POST.ANE ---
Anesthesia: Postop Eval I Current Vital Signs Temperature: 97.1 F Pulse Rate: 86 Blood Pressure: 134/92 Respiratory Rate: 20 Pulse Ox: 99 Oxygen Delivery Method: Room Air Assessment Airway patent: Yes Spontaneous unlabored respirations: Yes Mental status: Awake and Calm nausea: No Vomiting: No Anesthesia Complication: No Fluid Hydration Crystalloid volume administer (ml): 500 Total IV fluid infused: 500 Progress Note Anesthesia document: Postop Eval 1 completed: Yes
--- NOTE | 2025-04-15 09:33 | POSTOPAN2_ITS ---
Anesthesia Postop Eval I Sum Postop Eval Completion status Anesthesia document: Postop Eval 1 completed: Yes Anesthesia Postop Eval I Summary Anesthesia Postop Eval I Summary: Anesthesia Postop Eval I: Assessment Summary Airway patent Yes 04/15/25 09:19 BUSINESS [email or web address] Spontaneous unlabored Yes 04/15/25 09:19 BUSINESS [email or web address] respirations Mental status Awake,Calm 04/15/25 09:19 [email or web address] nausea No 04/15/25 09:19 BUSINESS [email or web address] Vomiting No 04/15/25 09:19 [email or web address] Anesthesia Postop Eval I: Fluid Summary Crystalloid volume administer 500 04/15/25 09:19 [email or web address] (ml) Colloids volume administered ( ml) Blood Product volume administered (ml) Total IV fluid infused 500 04/15/25 09:19 BUSINESS [email or web address] Anesthesia Postop Eval I: Summary Notes Anesthesia Complication No 04/15/25 09:19 [email or web address] Anesthesia Complication Comment: Post-operative progress note Anesthesia: Postop Eval II Evaluation Mental status: Awake Pain Level: 0 nausea: No Vomiting: No
--- NOTE | 2025-04-15 09:33 | PCM.POSTANE2 ---
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 Spontaneous unlabored Yes 04/15/25 09:19 ARMORED CAR GUARD [email or web address] respirations Mental status Awake,Calm 04/15/25 09:19 ARMORED CAR GUARD [email or web address] nausea No 04/15/25 09:19 ARMORED CAR GUARD [email or web address] Vomiting No 04/15/25 09:19 ARMORED CAR GUARD [email or web address] Anesthesia Postop Eval I: Fluid Summary Crystalloid volume administer 500 04/15/25 09:19 ARMORED CAR GUARD [email or web address] (ml) Colloids volume administered ( ml) Blood Product volume administered (ml) Total IV fluid infused 500 04/15/25 09:19 ARMORED CAR GUARD [email or web address] Anesthesia Postop Eval I: Summary Notes Anesthesia Complication No 04/15/25 09:19 ARMORED CAR [email or web address] Anesthesia Complication Comment: Post-operative progress note Anesthesia: Postop Eval II Evaluation Mental status: Awake Pain Level: 0 nausea: No Vomiting: No
--- NOTE | 2025-04-15 09:38 | OP.PCM_ITS ---
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 Type of Anesthesia: Local MAC RN Documented Start/Stop Times: Operation Date: 04/15/25 08:30 Case Time Into Pre-Op 04/15/25 07:10 Out of Pre-Op 04/15/25 08:31 Anesthesia Start 04/15/25 08:32 Into Room 04/15/25 08:32 Procedure Start 04/15/25 08:53 Procedure End 04/15/25 09:08 Anesthesia End 04/15/25 09:13 Out of Room 04/15/25 09:13 Into Recovery 04/15/25 09:18 Into Phase II Recovery 04/15/25 09:35 Out of Recovery 04/15/25 09:35 Procedure Start Time: 08:53 Procedure Stop Time: 09:08 Select all DRAINS/GRAFTS/IMPLANTS that apply: None Estimated Blood Loss: 50 Specimen collected: Yes Description of specimen(s) removed: cervix Description of surgery: Patient was taken to the operating room and placed under MAC anesthesia prepped and draped in normal sterile fashion the dorsal lithotomy position. Paracervical block was placed with 1% lidocaine and using a loop electrode the outer part of the cervix was removed including the squamocolumnar junction. Endocervical curettings were taken and the base of the cervix was cauterized around the borders and the base to obtain excellent hemostasis. Monsel's paste was placed on that and a small left vaginal laceration that was noted and patient was awoken and taken recovery in stable condition. Surgical Findings: nl appearing cervix grossly Complications Complications: No
--- NOTE | 2025-04-15 09:52 | PCM.DC ---
Discharge Instructions DC O2, CPAP, BIPAP needs Home O2 Discharge instructions: No Dressing / Incision Discharge Activity: Return to Normal Activity, May Shower and May Take a Tub Bath (after 1 week) May resume sexual activity in: 1-2 weeks Weight Bearing Status: Weight bearing as tolerated Lifting Restrictions: none Dressing / Incision Call your doctor if you observe: Fever of 101 or Higher, Using more than 1 pad per hour, Shortness of breath and Uncontrolled pain Follow Up Care Please Follow Up With: Leidy Dutton MD When: Call [phone] to schedule appointment. Test Results: Test results from this visit will be discussed in further detail at your follow-up appointment, if applicable. Discharge Plan Admission Attending Provider: Leidy Dutton Primary Care Provider: Care PhysicianJasmin Primary Instructions Print Language: Slovenian Discharge Orders/Prescriptions Prescriptions: No Action hydroxyzine pamoate 50 mg capsule 50 mg PO 4X/DAY PRN PRN (Reason: Anxiety) Qty: 90 12RF citalopram 20 mg tablet 20 mg PO QDAY Qty: 30 12RF Referrals / Follow Up: Care Physician,No Primary [Primary Care Provider, Medical] Disposition Disposition (needs filled in before D/C Order can be placed): Home, Self Care
[2025-04-15] MEDS: HYDROcodone Bitartrate/Apap 5/325 Tablet PO (10:09)
== END 2025-04-15 10:54 | disposition home or self-care (01) ==
LOC: SDC 07:07 → AC 07:09
PROVIDERS: Referring Provider Obstetrics & Gynecology; Visit Provider Obstetrics & Gynecology
PROC: 0UBC7ZZ Excision of Cervix, Via Natural or Artificial Opening (ICD-10-PCS; CPT 57522; principal; 2025-04-15 08:15)
DX: N87.1 Moderate cervical dysplasia (principal); D68.51 Activated protein C resistance; F32.A Depression, unspecified; Z79.899 Other long term (current) drug therapy
CPT/HCPCS: 57522; 00940; 36415; 81025; 85027; 86850; 86900; 86901; 88305; 88307; J2405

== ENCOUNTER → 2025-04-29 | Outpatient (CLI) | payer OTHER, SELFPAY | END | disposition home or self-care (01) | LOC: LABSPEC 11:58 | PROVIDERS: Visit Provider Student in an Organized Health Care Education/Training Program | DX: N89.8 Other specified noninflammatory disorders of vagina (principal) | CPT/HCPCS: 87070; 87205 ==